=== PATIENT | female | born 1945 | race Caucasian/White ===

== ENCOUNTER 2018-06-01 10:00 | Outpatient (RCR) | payer MEDICARE, SELFPAY ==
--- NOTE | 2018-04-28 15:01 | HP.PTEVAL ---
Patient's Visit Information DEBBI MARTINS is a 72 year old F referred to Physical Therapy by DAVID FRIEND with a diagnosis of ACUTE LEFT SHOULDER PAIN. Date of Evaluation: 04/28/18 Physical Therapist: Christopher Espino, PT, - Visit Plan Frequency: 4-5x /Week Duration: 4 Weeks Plan: MODALTIES FOR PAIN RELEIVE,ROM.strengthening RTC/SCAP ,POSTURAL EX'S MANUAL THERAPY G-H JHOINT MOBS - Subjective Subjective: This 72 y/o female presents to physical therapy with acute left shoulder pain. Patient has about 3 weeks . Patient pain causes left shoulder pain lifting luggage pain continue over weeks. Seen DR cronin PT ,did x-rays of shoulder. Pain increase with ADL'S dressing,lifting self hygine avtivities above 90 degrees. Patient denies parathesia/tingling. Patient pain affects sleeping. Patient pain affects ADL'S and QOL. Patient is right had dominent. Patient has no other PT. No h/o trauma. SOCIAL: single,womans intermediate. VOCATION: unemployed - Pain Left Shoulder Pain Intensity (Out of 10): 7 Pain Intensity Range: 10 Comment: activity - Objective POSTURE: rounded shoulders head foward. NEURO: denies parathesia/tingling ,reflexes intact. PALAPTION: unremarkable. AROM: shoulder flexion 110 degrees,abduction 110 degrees,ER 80 degrees,IR 70 degrees all motion referred pain to lateral deltoid. PROM: shoulder flexion /abduction 140 degrees,. FUNCTION: IR L1,top of head. MMT:infraspinatous /supraspinatous 4-/5 pain,lateral deltoid 4-/5,anterior deltoid 3+/5 pain. CAPSULAR : MILD/MOD limited all planes - Special Tests L Shoulder External Rotation Lag Test - RC Tear: Negative L Shoulder Supine Impingement Test - RC Tear: Negative L Shoulder Lift Off Test - Subscapular Tear: Negative L Shoulder Drop Sign - IS Test: Negative L Shoulder Empty Can - SS: Positive L Shoulder Neer - Impingement: Positive L Shoulder Orantes Jaime - Impingement: Positive L Shoulder Shrug Sign - OA/Adhesive Capsulitis: Positive - Goals Goal 1:: Independanant with HEP Goal Time Frame: 4-6 Weeks Goal 2:: Decrease pain by 50% or greater left shoulder to improve function with ADL'S Goal Time Frame: 4-6 Weeks Goal 3:: Patient to improve ROM symtrically left compared to right for function Goal Time Frame: 4-6 Weeks Goal 4:: Patient to improve RTC strength 4/5 with no pain to improve ADL'S Goal Time Frame: 4-6 Weeks Goal 5:: Patient to improve dash score by 10 points to improve QOL Goal Time Frame: 4-6 Weeks - Rehabilitation Potential Physical Therapy Diagnosis: This patient has psotive sight with RTC imingement with RTC along with mild capsular restriction which impairs ROM,strength ,ADLS' activities above 90 degrees thus benifit from skilled PT Rehabilitation Potential: Good - Anticipated Interventions Patient/Client Instruction: Educate patient on: Condition, Plan of Care For the Purpose of:: To decrease pain, To increase ROM, To improve muscle performance and motor function, To improve ability to perform ADL's, To increase tolerance to activity/condition/position, To improve ability of physical actions for home/community/work/leisure, To improve health of tissue, To decrease soft tissue restriction, To increase flexibility/ROM, To improve ability to perform tasks related to life management Therapeutic Exercise to Include: Strength training, Postural training, Flexibilty training, Passive ROM, Active ROM, Scapular Strength/Stabilization For the Purpose of:: To decrease pain, To increase ROM, To improve muscle performance and motor function, To improve ability to perform ADL's, To increase tolerance to activity/condition/position, To improve performance and independence with ADL's, To improve ability of physical actions for home/community/work/leisure, To improve health of tissue, To decrease soft tissue restriction, To increase flexibility/ROM, To improve ability to perform tasks related to life management Manual Therapy Techniques to Include: Mobilization Comment: G-H For the Purpose of:: To decrease pain, To increase ROM, To improve health of tissue, To decrease soft tissue restriction TENS: Yes IF ES: Yes Cryotherapy (ice pack, ice massage): Yes Thermo therapy (hot pack): Yes Ultrasound (thermal/non thermal): Yes For the Purpose of:: To decrease pain, To increase ROM, To improve health of tissue, To decrease soft tissue restriction Thank you for the opportunity to evaluate your patient. For Medicare and Medicare HMO plans, please review the plan of care and approve it. It will need to be FAXED BACK to us at [phone] for Medicare purposes. Please let me know if there are questions or concerns regarding this plan of care. Physician Signature: Date:
--- NOTE | 2018-06-01 10:40 | HP.PTDCSUM ---
HP - PT D/C Summary It has been my pleasure to treat DEBBI MARTINS under orders from DAVID FRIEND, for the diagnosis of ACUTE LEFT SHOULDER PAIN for a total of 9 visit(s). Discharge Date: Please see the following information for a summary of their discharge status. - Subjective Subjective: Doing well..able to do all ADL'S less pain - Pain Left Shoulder Pain Intensity (Out of 10): 1 - Overall Improvement % Improvement: 80 - Objective Objective/Function: POSTURE: rounded shoulders head foward. PALPATION: none. NEURO: inact. AROM: shoulder flexion 140 degrees,abd 140 degrees ER 80. MMT: RTC 4-/5,DELTOID 4-5/. + IMPINGEMENT - Goals Goal 1:: Independanant with HEP Goal Progress: Goal Met Goal 2:: Decrease pain by 50% or greater left shoulder to improve function with ADL'S Goal Progress: Goal Met Goal 3:: Patient to improve ROM symtrically left compared to right for function Goal Progress: Goal Met Goal 4:: Patient to improve RTC strength 4/5 with no pain to improve ADL'S Goal Progress: Goal Met Goal 5:: Patient to improve dash score by 10 points to improve QOL Goal Progress: Goal Met - Plan Plan: D/C TO HEP - D/C Information If there are questions or concerns regarding this patient's physical therapy, please feel free to call me at [phone]. Thank you for the referral of this patient. Sincerely, Christopher Espino, PT,
== END 2018-06-01 19:00 | disposition home or self-care (01) ==
LOC: PT 10:00
DX: M25.512 Pain in left shoulder (principal)
CPT/HCPCS: 97014; 97110; 97162; G0283

== ENCOUNTER 2019-06-23 13:07 | Inpatient (IN) | payer MEDICARE, SELFPAY ==
[2019-06-23] VITALS (11 sets, daily range): BP systolic 56–116; BP diastolic 36–84; PULSE 74–87; RESP 16–26; TEMP 36.7–37; O2SAT 86–98; BMI 24.3; BMI 24.4
--- NOTE | 2019-06-23 13:45 | CT_ITS ---
STUDY: CT ABDOMEN AND PELVIS WITHOUT CONTRAST REASON FOR EXAM: Female, 73 years old. PT STATED ABDOMEN PAIN AND SHORT OF BREATH RADIATION DOSAGE (If Supplied By Facility): CTDIvol = ( 10.29 ) mGy, DLP = ( 570.62 ) mGycm TECHNIQUE: Transaxial images were obtained from the dome of the diaphragm to the symphysis pubis without oral contrast, and without intravenous contrast. Sagittal and coronal images were reconstructed. Individualized dose optimization techniques were used for this CT. COMPARISON: None. FINDINGS: Large right pleural effusion with compressive atelectasis of the right lung. Shift of the heart and mediastinal structures towards the left side of the midline. Coronary artery calcification. There is a diffuse contour abnormality of the liver consistent with cirrhotic changes. Normal gallbladder and extrahepatic biliary system. There is moderate splenomegaly. A suspected varices in the splenic hilum. Normal pancreas. Diffuse ascites. Normal bilateral adrenal glands. Normal right kidney. Normal left kidney. Normal visualized stomach. Normal small intestine. Normal colon. The appendix is visualized and appears normal. There is diffuse atherosclerotic calcification of the abdominal aorta, without a demonstrated aneurysm. Normal inferior vena cava. Normal retroperitoneum. Normal urinary bladder. There is a small umbilical hernia containing small amount of ascitic fluid. There are diffuse degenerative changes of the visualized lumbar spine. CT/Abdomen/Pelvis without Cont IMPRESSION: Large right pleural effusion with compressive atelectasis in the right lung with shift of the heart and mediastinal structures towards the left side of the midline. Findings suggestive of cirrhosis of the liver with nodular contour and decreased size. Splenomegaly. 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 Ascites. Electronically Signed: Dorian Rand, at 15:06 EST , Service support ,
--- NOTE | 2019-06-23 13:47 | ED.VIS.GI ---
History of Present Illness Chief Complaint: Abd Pain Informant: Patient - Abdominal Pain/Flank Pain Onset: Yesterday Context: Gradual Onset Timing: Continuous Location: Diffuse Current Severity: Moderate Maximum Severity: Moderate - Nausea/Vomiting/Emesis GI Symptom: Nausea - Gone now Onset: Today - Diarrhea/Melena/Hematochezia GI Symptom: Negative for: Diarrhea, Melena, Hematochezia Associated Symptoms: Negative for: Dysuria, Frequency, Hematuria Narrative: Patient is very poor historian. She said something about having some hemorrhoids that are not there now, and 3 bowel movements in a row. She started having abdominal discomfort she thinks yesterday as well as distention which is new for her. She was nauseated at one point but that went away and she has not vomited. She denies any blood in her stool or melena. No fevers. Normal urination. She denies having any surgeries in her belly except for a remote . She also states that she periodically gets thoracenteses for pericardial effusion which she cannot give me any more information about. - Past Medical History (1) Hyperlipidemia Status: Chronic Past Medical History - Allergies and Home Meds Allergies/Adverse Reactions: Allergies Penicillins Allergy (Verified 06/23/19 13:17) Unknown Primary Care Physician: DAVID FRIEND [Other] Surgical History: - - Lives: Alone Smoking Status: Never smoker Alcohol: None Review of Systems General: Denies: Chills, Fever, Sweats Eyes: Denies: Visual changes - bilaterally, Diplopia ENT: Denies: Rhinorrhea, Sore throat Cardiovascular: Denies: Chest pain, Palpitations Respiratory: Denies: Dyspnea, Cough, Dyspnea on exertion Gastrointestinal: Reports: Abdominal pain, Nausea. Denies: Vomiting, Diarrhea, Melena, Hematochezia Genitourinary: Denies: Dysuria, Hematuria, Frequency Musculoskeletal: Denies: Back pain, Swelling, Extremity Pain Skin: Denies: Rash, Wounds Neurological: Denies: Headache, Weakness, Numbness Physical Exam Vital Signs/Narrative: Vital Signs Temp Pulse Resp BP Pulse Ox 06/23/19 13:18 98.6 F 77 24 H 115/55 L 98 06/23/19 13:08 98.6 F 87 26 H 56/36 L 86 Inital Vital Signs reviewed: Yes General: Well nourished, Well developed, No Acute Distress - Smiling, conversive Head: Normocephalic, Atraumatic Eyes: Perrl, EOMI ENT: Moist mucous membranes, No rhinorrhea Neck: Supple, Nontender Cardiovascular: Regular rate, Regular rhythm, No murmurs Respiratory: No distress - but appears tachypneic, CTA bilaterally, Chest nontender, Diminished - throughout Abdomen: Soft, Tender - Diffusely except for reducible umbilical hernia, Guarding - With deep palpation right upper quadrant, Hypoactive bowel sounds, Hernia reducible - Umbilical, Galindo's sign. Negative for: Rebound tenderness Back: Nontender, Normal Inspection. Negative for: CVA tenderness Extremities: Nontender, No edema Skin: Normal color, No rash, No Trauma Neurological: Alert, Oriented x3, Cranial nerves II-XII grossly intact, Normal Strength, Normal Sensation Psychological: Normal affect, Normal Mood Diagnostic/Tx/Re-eval Impressions Abdomen/Pelvis CT 06/23/19 13:45 IMPRESSION: Large right pleural effusion with compressive atelectasis in the right lung with shift of the heart and mediastinal structures towards the left side of the midline. Findings suggestive of cirrhosis of the liver with nodular contour and decreased size. Splenomegaly. 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 Ascites. Electronically Signed: Dorian Rand, at 15:06 EST , Service support , Chest CT 06/23/19 14:47 IMPRESSION: Large right pleural effusion with compressive atelectasis of the right lung with shift of the heart and mediastinal structures towards the left side of the midline. Ascites with evidence of cirrhosis of the liver and splenomegaly with varices in the splenic hilum. Electronically Signed: Dorian Rand, at 15:09 EST , Service support , 06/23/19 13:45 Abdomen/Pelvis without Cont [CT] Stat 06/23/19 14:47 CT Chest [Chest without Contrast] [CT] Stat Laboratory Results 06/23/19 06/23/19 06/23/19 13:40 13:40 15:16 WBC 16.4 H RBC 3.90 L Hgb 12.6 Hct 39.0 MCV 100.0 H MCH 32.3 H MCHC 32.3 RDW Std Deviation 52.2 H RDW Coeff of Viviane 14.1 Plt Count 151 MPV 9.9 Immature Gran % (Auto) 0.600 Neut % (Auto) 83.4 H Lymph % (Auto) 5.9 L Monona % (Auto) 9.2 Eos % (Auto) 0.7 Baso % (Auto) 0.2 Absolute Neuts (auto) 13.6 H Absolute Lymphs (auto) 0.96 Nucleated RBC % 0 Differential Comment COMMENT Diff Path Review May foll Sodium 139 Potassium 3.9 Chloride 102 Carbon Dioxide 33.0 H Anion Gap 4 L BUN 18 Creatinine 1.03 H Estim Creat Clear Calc 41.38 Est GFR (MDRD) Af Amer 67 Est GFR (MDRD) Non-Af 56 L BUN/Creatinine Ratio 17.5 Glucose 121 H Calcium 8.4 L Total Bilirubin 3.10 H AST 51 H ALT 32 Alkaline Phosphatase 185 H Troponin I < 0.015 Total Protein 7.9 Albumin 2.5 L Globulin 5.4 H Albumin/Globulin Ratio 0.5 L Lipase 54 L Urine Color Domonique Urine Clarity Clear Urine pH 5.0 Ur Specific [place] 1.025 Urine Protein 30 H Urine Glucose (UA) Normal Urine Ketones 5 H Urine Occult Blood 10 H Urine Nitrite Positive H Urine Bilirubin 3 H Urine Urobilinogen 8 H Ur Leukocyte Esterase 25 H - Medical Decision Making Work-up shows a large right pleural effusion, ascites that is likely causing her abdominal distention, and findings consistent with cirrhosis. When I discussed these findings with the patient, she states she has never heard of anyone telling her about any liver problems and this is the first time she has ever had abdominal distention like this. She admits that she has had thoracenteses before at [facility], she does not know for how long but had one last month and has been having them for less than a year. When asked if she wants to be transferred to [place] she refuses. She states [place] the [place] and 2 [place]. She lives alone. My suspicion is that she has hepatic encephalopathy so an ammonia is added, her total bilirubin is elevated, her urine is orange and likely causing a false positive nitrite because of bilirubin, that will be cultured. Since we saw the large pleural effusion on the CT of the abdomen and pelvis and we were unable to see her lungs there, I had CT continue up through her chest to further evaluate that. There were no other abnormal findings except for compressive atelectasis of the entire right lung. Patient states that someone of [facility] called her today about a recent chest x-ray she had and said you are not full enough. She states that she feels like she is and needs a tap. She states that she has no PCP. She states she has never drink alcohol and does not currently. Given all of this, the plan is for admission and further work-up and treatment. Discussed with hospitalist. ED Disposition - Plan for ED Patient: Disposition: Acute Care Hospital [facility] Diagnosis: Cirrhosis of liver, Pleural effusion, right, Ascites of liver, Encephalopathy acute Referrals: DAVID FRIEND [Other]
[2019-06-23 13:56] LABS: Absolute Lymphocyte Count 0.96 X10^3/uL (0.83-4.51); Absolute Neutrophil Count 13.6 X10^3/uL (2.0-7.7); Basophil# 0.03 X10^3/uL; Basophil% 0.2 % (0-1); Eosinophil# 0.12 X10^3/uL; Eosinophils% 0.7 % (0-5); Hemoglobin 12.6 g/dL (12.0-15.0); Lymphocyte # 0.96 X10^3/ul (4.0); Lymphocyte % 5.9 % (19-41); Mean Corp Hgb Conc 32.3 g/dL (32-36); Mean Corpuscular Hgb 32.3 pg (27.0-32.0); Mean Platelet Vol. 9.9 fl (6.2-12.0); Monocyte# 1.51 X10^3/uL; Monocyte% 9.2 % (0-10); NRBC Flagged by Analyzer 0 % (0-5); Neutrophil # 13.63 X10^3/uL (2.7-7.7); Neutrophil % 83.4 % (47-70); POSITIVE DIFFERENTIAL YES; POSITIVE MORPHOLOGY YES; Platelet Count 151 K/mm3 (150-450); RBC Distribution Width CV 14.1 % (11.6-14.6); RBC Distribution Width SD 52.2 fl (35.1-43.9); White Blood Count 16.4 K/mm3 (4.4-11.0)
[2019-06-23 13:57] LABS: Differential Indicated SCAN CRITERIA MET
[2019-06-23] MEDS: 0.9% Normal Saline 1,000 ML 1000 ML IV (14:00)
[2019-06-23] MEDS: Morphine 2 MG/ML Syringe IV (14:06)
[2019-06-23] MEDS: Ondansetron 4 MG/2 ML Vial IV (14:06)
[2019-06-23 14:09] LABS: ALB/GLOB Ratio 0.5 RATIO (0.9-2.4); AST(SGOT) 51 U/L (15-37); Alanine Aminotransfer ALT/SGPT 32 U/L (13-56); Albumin, Serum 2.5 g/dL (3.2-5.0); Alkaline Phosphatase 185 U/L (45-117); Anion Gap 4 (5-15); BUN 18 mg/dL (7-18); BUN/Creat Ratio 17.5 RATIO (10-20); Calcium,Total 8.4 mg/dL (8.5-10.1); Chloride 102 mmol/L (98-107); Creatinine, Serum 1.03 mg/dL (0.55-1.02); EST Glomerular Filtration Rate 56 mL/min (>60); Est Glom Filt Rate - Afr Amer 67 mL/min (>60); Estimated Creatinine Clearance 41.38 ml/min; Globulin 5.4 g/dL (2.2-4.2); Glucose 121 mg/dL (74-106); Lipase 54 U/L (73-393); Potassium 3.9 mmol/L (3.5-5.1); Protein, Total 7.9 g/dL (6.4-8.2); Sodium Level 139 mmol/L (136-145)
--- NOTE | 2019-06-23 14:47 | CT_ITS ---
STUDY: CT CHEST WITHOUT CONTRAST REASON FOR EXAM: Female, 73 years old. PT STATED ABDOM PAIN AND SHORT OF BREATH RADIATION DOSAGE (If Supplied By Facility): CTDIvol = ( 11.18 ) mGy, DLP = ( 380.02 ) mGycm TECHNIQUE: Transaxial imaging was performed without the administration of intravenous contrast material. Multiplanar coronal and sagittal images were reformatted. Individualized dose optimization techniques were used for this CT. COMPARISON: None. FINDINGS: Small bilateral benign appearing axillary lymph nodes. Large right pleural effusion with compressive atelectasis of the right lung. There is shift of the heart and mediastinal structures towards the left side of the midline. There are calcifications of the coronary arteries. Normal mediastinum. Normal hilar regions. Normal unenhanced pulmonary arteries. There is atherosclerotic calcification of the aortic arch with tortuosity and elongation of the aortic arch and descending thoracic aorta. There are multi-level degenerative changes of the thoracic spine. Ascites. Findings in keeping with cirrhosis of the liver and splenomegaly with varices in the splenic hilum. CT/Chest without Contrast IMPRESSION: Large right pleural effusion with compressive atelectasis of the right lung with shift of the heart and mediastinal structures towards the left side of the midline. Ascites with evidence of cirrhosis of the liver and splenomegaly with varices in the splenic hilum. Electronically Signed: Dorian Rand, at 15:09 EST , Service support ,
[2019-06-23 15:26] LABS: Mucous, Urine 0 SEEN /hpf (<or=2+); Red Blood Cells-Urine 0 SEEN /hpf (0-5)
[2019-06-23 15:42] LABS: Color, Urine Amber (Yellow); Glucose, Dipstick Normal (Normal); Ketone-Dipstick 5 mg/dl (Negative); Leukocyte Esterase-Dipstick 25 /ul (Negative); Nitrite-Dipstick Positive (Negative); Occult Blood-Urine 10 /ul (Negative); Protein-Dipstick 30 mg/dl (Negative); Specific Gravity, Urine 1.025 (1.002-1.030); Urine Clarity Clear (Clear); Urine Urobilinogen 8 mg/dl (Normal)
[2019-06-23 15:44] LABS: Urine Bilirubin Dipstick 3 mg/dL (Negative)
[2019-06-23 16:02] LABS: Bacteria 2+ /hpf (None Seen); Squamous Epithelial Cells - UA 0-5 SEEN /hpf (5-10); White Blood Cells 0-5 SEEN /hpf (0-5)
[2019-06-23 16:20] LABS: Bilirubin, Direct 1.46 mg/dL (0.00-0.30)
[2019-06-23 16:55] LABS: International Normalized Ratio 1.4; Prothrombin Time (Protime)PT. 17.4 SECONDS (11.7-14.9)
--- NOTE | 2019-06-23 17:15 | HP.PCM_ITS ---
Problem List (1) Asthma Status: Chronic (2) RA (rheumatoid arthritis) Status: Acute Comment: pt has been told she has RA but, she is not on any medications (3) Hyperglycemia Status: Acute (4) Splenomegaly Status: Chronic (5) Hypoprothrombinemia Status: Chronic (6) Cataract Status: Chronic Qualifiers: Laterality: right (7) Cirrhosis of liver Status: Chronic Qualifiers: Hepatic cirrhosis type: unspecified hepatic cirrhosis Ascites presence: with ascites Qualified Code(s): K74.60 - Unspecified cirrhosis of liver; R18.8 - Other ascites (8) Pleural effusion, right Status: Acute (9) Hyperlipidemia Status: Chronic History of Present Illness Date of Admission: 06/23/19 Chief Complaint: abdominal pain The patient is a 73 year old F who is new to [facility] with a PMH of HLD, RA, a cataract on the R who was brought to the ED at [facility] on 06/23/2019 with a complaint of abdominal pain the preceding night. She had 3 BM's and now she denies abd pain. She denies nausea, vomiting, cough, F/C. Her abd is distended. Vital signs at presentation to the emergency department were temperature 98.6, pulse rate 87, blood pressure 56/36, respiratory rate 26 and she was 86% on room air. The BP after 1 liter of NS was 115/55 with a HR of 80. She denied lightheadedness, CP, SOB, hx of CVD. Lab was remarkable for an elevated white blood cell count of 16.4 with a hemoglobin of 12.6, MCV of 100, platelets of 151,083% neutrophils. PT was mildly prolonged at 17.4. The CMP showed a mildly increased serum bicarb at 33, BUN of 18 with a creatinine of 1.03, glucose of 121, total bilirubin of 3.1 with an AST of 51, ALT of 32 and an alkaline phosphatase of 185. Ammonia is within normal limits at 21. Troponin was less than 0.015. Albumin is low at 2.5. Lipase was within normal limits. A clean catch urine showed positive nitrites, positive occult blood, positive ketones and a specific gravity of 1.025. There were 0-5 WBCs and 0 RBCs. There was 2+ bacteria. A CT scan of the abdomen and pelvis was obtained and showed a large right pleural effusion with compressive atelectasis in the right lung with shift of the heart and mediastinal structures towards the left side of midline. There were findings suggestive of cirrhosis of the liver with a nodular contour and decreased size. There was significant splenomegaly and varices in the region of the splenic hilum. His ascites present. A noncontrasted CT chest was obtained and showed a very large right pleural effusion extending into the apex of the right lung. She denies any hx of chronic liver disease but, she is on Lasix and Propanolol. She also states she has been on Spirolactone but, she stopped this because she read it can cause problems with your eyes. She does not use ETOH and she denies any hx of viral hepatitis or chronic liver disease. Tells me that she has been getting thoracenteses at [facility] and her last was sometime in May. She is being admitted to the hospital with hypoxia, hypotension, decompensated cirrhosis and ascites. Past Medical History Past Medical History (Chronic Problems): Chronic Problems Hyperlipidemia (Chronic) Cirrhosis of liver (Chronic) Asthma (Chronic) Splenomegaly (Chronic) Hypoprothrombinemia (Chronic) Cataract (Chronic) Allergies Penicillins Allergy (Verified 06/23/19 13:17) Unknown Home Medications: Ambulatory Orders Medication Instructions Recorded Albuterol Sulfate [Ventolin Hfa] 2 puff INHALATION Q6H PRN 06/23/19 Furosemide 40 mg PO DAILY 06/23/19 Propranolol HCl 20 mg PO BID 06/23/19 Surgical History: - - Psychiatric History: No pertinent psych hx [employer] History: No pertinent [employer]TE[employer] history, - - She is and she has a son who lives in [facility] Lives: Alone Smoking Status: Never smoker Tobacco Use: Non-smoker Alcohol: None Drugs: None - *Family History Maternal History Items: Cancer - colon CA is grandfather, - - mother of pneumonia Paternal History Items: - - never knew her biological father Review of Systems Constitutional: Denies: Anorexia, Chills, Fever, Night Sweats, Weight Change HEENT: Denies: Head Aches, Sinus Congestion, Sinus Drainage Cardiovascular: Reports: Edema. Denies: Chest Pain, Claudication, Light Headedness, Orthopnea, Palpitations, Paroxysmal Noc. Dyspnea, Syncope Respiratory: Denies: Cough, Shortness of Breath, Shortness of breath at rest, Sputum production, Wheezing Gastrointestinal: Reports: Abdominal Pain, Constipation - the abdominal pain resolved after she had 3 BM's. Denies: Nausea, Vomiting Genitourinary: Denies: Dysuria, Frequency, Hematuria, Hesitancy Gynecological: Denies: Breast symptoms, Vaginal discharge Musculoskeletal: Denies: Joint Pain, Joint Tenderness Skin: Denies: Rash, Wounds Neurological: Denies: Balance problems, Confusion, Focal weakness, Headaches, Numbness, Tingling, Tremor, Seizures Psychiatric: Denies: Anxiety, Depression, Homicidal Ideations, Suicidal Ideations Endocrine: Reports: Change in Body Habitus - her abd is getting bigger Hematologic/ Lymphatic: Reports: Easy Bruising. 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 Patient Problems: Active and Suspected Problems Pleural effusion, right (Acute) RA (rheumatoid arthritis) (Acute) pt has been told she has RA but, she is not on any medications Hyperglycemia (Acute) - Physical Exam Vitals/I&O's: Vital Signs Temp Pulse Resp BP Pulse Ox 98.5 F 79 16 114/56 L 96 06/23/19 16:00 06/23/19 16:00 06/23/19 16:00 06/23/19 16:00 06/23/19 16:00 Oxygen Flow Rate (L/min) 2 Oxygen Delivery Method Nasal Cannula Weight: 141 lb 5.061 oz Body Mass Index (BMI) 24.3 Intake and Output for Last 24 Hours 06/21/19 06/22/19 06/23/19 23:59 23:59 23:59 Intake Total 1000 / 1000 Balance 1000 / 1000 General: Alert, Oriented x3, Cooperative, No apparent distress, Well developed, Well nourished HEENT: Atraumatic, PERRLA, EOMI, Normocephalic, - - she has scleral icterus Oral: No Gingival or Mucosal Lesions/ Ulcerations, Dry Mucosa - very dry, - - missing teeth Neck: Supple, No Nodes, No Nuchal Rigidity, Trachea Midline, JVD, Bilateral Lungs: Diminished - throughout the R side, no rales and no wheezing. She did not have tachypnea or conversational dyspnea when I examined her Cardiovascular: Regular rate, Regular Rhythm, Normal S1, Normal S2, No murmurs, No rub noted, No Gallop Abdomen: Bowel Sounds Present, Soft, Non Tender, Distended, - - no guarding with palpation. She has a umbilical hernia that is reducible Extremities: No clubbing, No cyanosis, No Calf Tenderness, Edema - she has pitting edema of the LE's around the ankle, Peripheral Pulses Normal Skin: - - the skin is very dry and flakey over the LE's and she has superficial varicosities Musculoskeletal: No Muscle Wasting Neurological: Cranial nerves II-XII grossly intact, Neuro grossly intact Psych/Mental Status: Normal Affect - She is very pleasant and verbose, Appropriate Laboratory Results 06/23/19 13:40: WBC 16.4 H, RBC 3.90 L, Hgb 12.6, Hct 39.0, MCV 100.0 H, MCH 32.3 H, MCHC 32.3, RDW Std Deviation 52.2 H, RDW Coeff of Viviane 14.1, Plt Count 151, MPV 9.9, Immature Gran % (Auto) 0.600, Neut % (Auto) 83.4 H, Lymph % (Auto) 5.9 L, Grand % (Auto) 9.2, Eos % (Auto) 0.7, Baso % (Auto) 0.2, Absolute Neuts (auto) 13.6 H, Absolute Lymphs (auto) 0.96, Nucleated RBC % 0, Differential Comment COMMENT, Diff Path Review November06/23/19 13:40: Sodium 139, Potassium 3.9, Chloride 102, Carbon Dioxide 33.0 H, Anion Gap 4 L, BUN 18, Creatinine 1.03 H, Estim Creat Clear Calc 41.38, Est GFR (MDRD) Af Amer 67, Est GFR (MDRD) Non-Af 56 L, BUN/Creatinine Ratio 17.5, Glucose 121 H, Calcium 8.4 L, Total Bilirubin 3.10 H, AST 51 H, ALT 32, Alkaline Phosphatase 185 H, Troponin I < 0.015, Total Protein 7.9, Albumin 2.5 L, Globulin 5.4 H, Albumin/Globulin Ratio 0.5 L, Lipase 54 L 06/23/19 13:40: PT 17.4 H, INR 1.4 06/23/19 15:16: Urine Color Domonique, Urine Clarity Clear, Urine pH 5.0, Ur S pecific [place] 1.025, Urine Protein 30 H, Urine Glucose (UA) Normal, Urine Ketones 5 H, Urine Occult Blood 10 H, Urine Nitrite Positive H, Urine Bilirubin 3 H, Urine Urobilinogen 8 H, Ur Leukocyte Esterase 25 H, Urine RBC 0 SEEN, Urine WBC 0-5 SEEN, Ur Squamous Epith Cells 0-5 SEEN, Urine Bacteria 2+, Urine Mucus 0 SEEN 06/23/19 15:42: Ammonia 21.0 06/23/19 15:42: Direct Bilirubin 1.46 H Current Medications Sodium Chloride () 10 - 40 ml IV UD PRN PRN Reason: SALINE FLUSH Assessment/Plan All Active Problems Pleural effusion, right (Acute) RA (rheumatoid arthritis) (Acute) Hyperglycemia (Acute) Impressions 1. Abdominal pain - relieved with BM's X 3. A stool softener has been prescribed and PRN laxative. 2. Hypotension secondary to intravascular volume depletion due to chronic Lasix therapy. Resolved with 1 L of normal saline. Will hold Lasix and place her on 1000 cc daily of fluid restriction instead. 2 GM sodium diet. 3. very large R pleural effusion - hx of Thoracenteses being done at [place]. etiology? Pt can not tell me. Denies CAD, CHF. Will obtain te records from [place]. ECHO in the AM. 4. cirrhotic appearing liver on CT scan of the ABD and the pelvis with splenomegaly. States that she has never been told she has chronic liver disease but, she is on Propanolol and Lasix and was on Spironolactone until she stopped it. Denies any ETOH use and denies any hx of viral hepatitis 5. ? hx of RA - pt tells me she has been told she has RA but, she is on no chronic medications. 6. hypoprothrombinemia -more likely than not due to chronic liver disease 7. Hyperlipidemia - not on a statin. 8. asthma - life long non-smoker. Not on medications/inhalers Consult Dr. Lindo for possible pleurx catheter. Send the pleural fluid for testing. Consider a diagnostic and therapeutic paracentesis for Wednesday. Hold the Lasix for now......she is intravascularly depleted and was hypotensive at admission Possible CT dz as etiology of cirrhosis? Check an ESR, CRP, RA and PIPPA. It is odd that the pleural effusion is so large and she has ascites and a cirrhotic appearing liver with splenomegaly and yet the PLT's are normal and the PT is only mildly prolonged? Code Visit Inpatient E&M: 37793 Init Hosp L3
[2019-06-23 17:23] LABS: Mucous, Urine 0 SEEN /hpf (<or=2+); Red Blood Cells-Urine 0 SEEN /hpf (0-5); Squamous Epithelial Cells - UA 0 SEEN /hpf (5-10); White Blood Cells 0 SEEN /hpf (0-5)
[2019-06-23 17:28] LABS: Color, Urine Amber (Yellow); Glucose, Dipstick Normal (Normal); Ketone-Dipstick 5 mg/dl (Negative); Leukocyte Esterase-Dipstick 25 /ul (Negative); Nitrite-Dipstick Positive (Negative); Occult Blood-Urine Negative /ul (Negative); Protein-Dipstick 30 mg/dl (Negative); Specific Gravity, Urine 1.025 (1.002-1.030); Urine Clarity Clear (Clear); Urine Urobilinogen 4 mg/dl (Normal)
[2019-06-23 17:33] LABS: Urine Bilirubin Dipstick 3 mg/dL (Negative)
--- NOTE | 2019-06-23 17:44 | ECHOD_ITS ---
Reason For Study: Large Right Pleural Effusion Procedure This was a 2D Doppler, Color Flow transthoracic echocardiogram. Technically difficult study. Patient scanned sitting upright due to SOB. Patient refused to lay on left side. Exam performed portable in patient room. Left Ventricle Normal LV size. Left ventricular systolic function is normal. The estimated ejection fraction is 65 %. Stage 1 diastolic dysfunction. No regional wall motion abnormalities noted. Right Ventricle Normal RV size. Normal systolic function. Atria Normal left atrium. Normal right atrium. Mitral Valve There is moderate to severe mitral annular calcification. Tricuspid Valve Normal tricuspid valve. Mild to moderate (1-2+) tricuspid valve insufficiency. Pulmonary artery systolic pressure is 52 mmHg. Aortic Valve Normal aortic valve. Trisinus/trileaflet aortic valve. Pulmonic Valve Normal pulmonic valve. Great Vessels Normal aortic root. The pulmonary artery is normal size. Normal inferior vena cava. Pericardium/Pleural No pericardial effusion. MMode/2D Measurements & Calculations LVIDd: 3.6 cm IVSd: 1.1 cm LA dimension: 4.1 cm LVIDs: 2.0 cm LVPWd: 0.92 cm RVDd: 4.0 cm FS: 43.2 % LAV(MOD-bp): 54.9 ml LA A4 area: 18.9 cm2 RA A4 area: 16.9 cm2 LAV(MOD-bp) Indexed: 32.4 ml/m2 LAV(MOD-sp2): 47.8 ml LAV(MOD-sp4): 60.9 ml Time Measurements MV dec time: 0.20 sec Doppler Measurements & Calculations MV E max quentin: 90.6 cm/sec Lat Peak E' Quentin: 9.0 cm/sec Med Peak E' Quentin: 8.0 cm/sec MV A max quentin: 103.0 cm/sec E/E' lat: 10.1 E/E' med: 11.3 MV E/A: 0.88 MV V2 max: 131.8 cm/sec MV P1/2t max quentin: 123.6 cm/sec Ao V2 max: 143.6 cm/sec MV max P.0 mmHg MV P1/2t: 60.0 msec Ao max P.2 mmHg MV V2 mean: 74.3 cm/sec MV dec slope: 603.3 cm/sec2 MV mean P.6 mmHg MVA(P1/2t): 3.7 cm2 MV V2 VTI: 31.7 cm LV V1 max: 114.9 cm/sec PA V2 max: 87.1 cm/sec TR max quentin: 347.8 cm/sec LV V1 max P.3 mmHg TR max P.4 mmHg Interpretation Summary Normal LV size. Left ventricular systolic function is normal. The estimated ejection fraction is 65 %. Stage 1 diastolic dysfunction. Mild to moderate (1-2+) tricuspid valve insufficiency. Pulmonary artery systolic pressure is 52 mmHg. Ordering Physician: Rosalva Sexton Referring Physician: Rosalva Sexton Performed By: Dustin Mobley RCS
[2019-06-23 17:46] LABS: Bacteria 1+ /hpf (None Seen); Hyaline Cast 0-5 SEEN /lpf (0-5)
[2019-06-23 18:04] LABS: Magnesium 1.6 mg/dL (1.6-2.6)
[2019-06-23 18:23] LABS: LDH 283 U/L (84-246); Phosphorus 3.4 mg/dL (2.5-4.9); Thyroid Stim Hormone (TSH) 1.49 uIU/mL (0.358-3.74)
[2019-06-23 18:26] LABS: Erythrocyte Sedimentation Rate 62 mm/hr (0-30)
[2019-06-23 18:44] LABS: Hemoglobin A1c 5.1 % (4.2-6.3)
--- NOTE | 2019-06-23 18:44 | NURSING ---
Pt took a bite of mashed potatoes and refused the rest of her meal. This nurse wanted to perform st. cath after explaining reason for it. Pt upset, they did that downstairs. This nurse again, explained reason for order for st. cath. I don't have to pee right now and I'm tired, I just want to sleep. pt states she goes to bed at 2000 at home.
[2019-06-23 21:05] LABS: Bacteria 0 SEEN /hpf (None Seen); Mucous, Urine 0 SEEN /hpf (<or=2+)
[2019-06-23 21:41] LABS: Color, Urine Amber (Yellow); Glucose, Dipstick Normal (Normal); Ketone-Dipstick 5 mg/dl (Negative); Leukocyte Esterase-Dipstick 25 /ul (Negative); Nitrite-Dipstick Positive (Negative); Occult Blood-Urine 10 /ul (Negative); Protein-Dipstick 15 mg/dl (Negative); Specific Gravity, Urine 1.025 (1.002-1.030); Urine Clarity Clear (Clear); Urine Urobilinogen 4 mg/dl (Normal)
[2019-06-23 21:49] LABS: Urine Bilirubin Dipstick 3 mg/dL (Negative)
[2019-06-23 21:54] LABS: Hyaline Cast 50-100 SEEN /lpf (0-5)
[2019-06-23 21:55] LABS: Red Blood Cells-Urine 0-5 SEEN /hpf (0-5); Squamous Epithelial Cells - UA 0-5 SEEN /hpf (5-10); White Blood Cells 0-5 SEEN /hpf (0-5)
[2019-06-23] MEDS: Docusate Sodium 100 MG Capsule PO (22:05)
[2019-06-24] VITALS (17 sets, daily range): BP systolic 75–116; BP diastolic 48–69; PULSE 64–99; RESP 16–30; TEMP 36.2–37.2; O2SAT 92–100
--- NOTE | 2019-06-24 | FLU_PTH ---
PATIENT: DEBIB MARTINS LOC: [facility] U#:[id number] AGE/SX: 73/F ROOM: [facility] RE06/23/[address]: Dr. Kaitlynn Meehan MD : [id number] BED: 1 DIS: 06/30/2019 SPEC #: [id number] RECD: 06/26/19 12:01 STATUS: SOULeslie REQ #: [id number] MARIBEL: 06/24/19 00:[address]: Santo Lindo DEPT: CYTOLOGY RECD BY: Antonio Rodriguez ENTERED: 06/26/19 12:02 SP TYPE: Fluid OTHR DR: MD Dr. Rosalva Coreas DO Dr. Richard Guttman, MD Tissues: Pleural fluid, NOS Procedures: Special Stain Group II Surgery Specimen Level IV Cytospin Fluid Comments: @ Ordering doctor for SSII edited from to DR.[email or web address] Johnston by TITO at 06/26/19 1304 @ Ordering doctor for SUIV edited from to DR.[email or web address] Johnston by TITO at 06/26/19 1304 @ Ordering doctor for CYSPIN edited from to DR.[email or web address] Johnston by TITO at 06/26/19 1304 @ Submitting doctor edited from to DR.RGUTTM Johnston by RGOOD at 06/26/19 1304 HEADER OPERATION: Ultrasound-guided tunneled PleurX catheter PRE-OP DIAGNOSIS: Right pleural effusion with mediastinal shift TISSUE SUBMITTED: Pleural fluid for cytology DIAGNOSIS CYTOLOGY Pleural fluid for cytology (cytospin and cell block): Negative for malignant cells. Acute inflammation. See comment. GENA:mamadou 06/27/19 COMMENT Correlation with clinical, radiologic findings and appropriate follow up are necessary. CYTOLOGY STUDY Slides are reviewed. CYTOLOGY GROSS Received is 1000 ml of yellow cloudy fluid labeled with the patient's name and and designated per the requisition as pleural. Submitted for cytology preparation including cell block. / mamadou 06/26/19 TC:2 CPT: 53260, 00267
--- NOTE | 2019-06-24 08:10 | CON.PCM_ITS ---
Reason for Consult Date of Consultation: 06/24/19 Reason for Consultation: right effusion History of Present Illness: The patient is a 73 year old F admitted with abdominal pain and significant shortness of breath. The patient presents with a history of cirrhosis and a large right pleural effusion. In the emergency department she was noted to be hypotensive with a blood pressure 56/36 arrest. Rate listed in the 20s but more likely in the 40s and a room air saturation of 86%. CT scan of the chest abdomen and pelvis demonstrated a very large right pleural effusion with compressive atelectasis and shifting the heart and mediastinal structures to the left. There was noted to be cirrhosis of the liver with a relatively shrunken contracted nodular liver nearly the size of the spleen and ascites along with what appears to be edema of the mesenteric fat and subcutaneous fat consistent with anasarca. The patient is a poor historian area did she denies any alcohol use smoking history or other difficulties. She does relate that she was seen in the [facility] last year and was told she had cirrhosis and likely a tumor. She does not know what type of tumor. I was consulted for placement of Pleurx catheter given her shortness of breath and very large right pleural effusion. The patient apparently has been traveling to [facility] for thoracenteses. She recalls her last pleurodesis was one week ago but reviewing available records demonstrates that was probably more towards the end of May. The clinical impression was likely biliary obstruction due to malignant neoplasm. She was noted to have a liver mass on imaging.her past history is noted as rheumatoid arthritis hyperlipidemia, asthma, psychiatric history, cirrhosis portal hypertension hypothyroidism. The patient on CT imaging from an outside institution was noted to demonstrate internal hepatic biliary dilatation and gallbladder distention. For some hypodense lesion was noted in the gallbladder. The common bile duct was dilated. The patient had a CA-19-9 level obtained which was 314 and elevated liver enzymes and bilirubin. CA-19-9 then returned as 222 alpha-fetoprotein of 2 and CEA of 1.5. 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 The patient was admitted to [facility] from September 25 to October 15, 2017. She was admitted with the diagnosis of jaundice. attempts to place stent via ERCP failed to traverse the segment. PTHC was then performed with an external biliary drain and placed and the patient had thoracentesis pe rformed. Pleural and ERCP brushings were negative for cytology. Repeat ERCP was performed on October 08 with successful cannulation of bile duct and the PTHC was removed. She was felt to not be a candidate for liver transplantation.her bilirubin during that hospitalization remained around the 9 to 11 level. admitting labs returned as a white blood cell count of 16.4. Platelet count is 151. PT is 17.4 with an INR of 1.4.ammonia level was 21. Total bilirubin was 3.1. Albumin is 2.5. 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, - - She is and she has a son who lives in [facility] Lives: Alone Smoking Status: Never smoker Tobacco Use: Non-smoker Alcohol: None Drugs: None - *Family History Maternal History Items: Cancer - colon CA is grandfather, - - mother of pneumonia Paternal History Items: - - never knew her biological father Review of Systems Unable to obtain accurate/complete ROS d/t: patient's seem somewhat confused and aside from shortness of breath and abd Patient Problems: Active and Suspected Problems Pleural effusion, right (Acute) RA (rheumatoid arthritis) (Acute) pt has been told she has RA but, she is not on any medications Hyperglycemia (Acute) - Physical Exam Vitals/I&O's: Vital Signs Temp Pulse Resp BP Pulse Ox 97.5 F L 81 18 114/49 L 94 06/24/19 03:00 06/24/19 03:05 06/24/19 03:00 06/24/19 03:00 06/24/19 03:00 Oxygen Flow Rate (L/min) 2.5 Oxygen Delivery Method Nasal Cannula Weight: 65.1 kg Body Mass Index (BMI) 24.4 Orthostatic Vital Signs Start: 06/24/19 03:04 Freq: q24h Status: Active Protocol: Activity Type Activity Date Activity User E-Sign Co-Sign Detail Recorded Client Recorded Date Recorded By Document 06/24/19 03:00 [facility] [id number] 06/24/19 03:05 [facility] 06/24/19 03:00 Orthostatic Vitals Standing -Blood Pressure (90/60-120/80) 110/50 L -Extremity Use Left Arm -Pulse Rate (60-100) 87 Sitting -Blood Pressure (90/60-120/80) 115/48 L -Extremity Use Left Arm -Pulse Rate (60-100) 86 Lying -Blood Pressure (90/60-120/80) 114/49 L -Extremity Use Left Arm -Pulse Rate (60-100) 82 Intake and Output for Last 24 Hours 06/22/19 06/23/19 06/24/19 23:59 23:59 23:59 Intake Total 1000 / 1240 240 / 240 Output Total 70 / 70 Balance 1000 / 1170 170 / 170 General: Alert, Oriented x3, - - mildly dyspneic HEENT: Atraumatic, PERRLA, EOMI, - - mildly icteric Neck: No JVD Lungs: - - severely decreased right sided breath sounds with dullness to percussion Cardiovascular: Regular rate, Regular Rhythm Abdomen: Bowel Sounds Present, Soft, Distended, Tender - mild diffusely, - Extremities: No clubbing, No cyanosis, - - mild edema Laboratory Results 06/23/19 13:40: WBC 16.4 H, RBC 3.90 L, Hgb 12.6, Hct 39.0, MCV 100.0 H, MCH 32.3 H, MCHC 32.3, RDW Std Deviation 52.2 H, RDW Coeff of Viviane 14.1, Plt Count 151, MPV 9.9, Immature Gran % (Auto) 0.600, Neut % (Auto) 83.4 H, Lymph % (Auto) 5.9 L, [place] % (Auto) 9.2, Eos % (Auto) 0.7, Baso % (Auto) 0.2, Absolute Neuts (auto) 13.6 H, Absolute Lymphs (auto) 0.96, Nucleated RBC % 0, Differential Comment COMMENT, Diff Path Review November06/23/19 13:40: Sodium 139, Potassium 3.9, Chloride 102, Carbon Dioxide 33.0 H, Anion Gap 4 L, BUN 18, Creatinine 1.03 H, Estim Creat Clear Calc 41.38, Est GFR (MDRD) Af Amer 67, Est GFR (MDRD) Non-Af 56 L, BUN/Creatinine Ratio 17.5, Glucose 121 H, Calcium 8.4 L, Total Bilirubin 3.10 H, AST 51 H, ALT 32, Alkaline Phosphatase 185 H, Troponin I < 0.015, Total Protein 7.9, Albumin 2.5 L, Globulin 5.4 H, Albumin/Globulin Ratio 0.5 L, Lipase 54 L 06/23/19 13:40: PT 17.4 H, INR 1.4 06/23/19 13:40: Magnesium 1.6 06/23/19 15:16: Urine Color Domonique, Urine Clarity Clear, Urine pH 5.0, Ur Specific [place] 1.025, Urine Protein 30 H, Urine Glucose (UA) Normal, Urine Ketones 5 H, Urine Occult Blood 10 H, Urine Nitrite Positive H, Urine Bilirubin 3 H, Urine Urobilinogen 8 H, Ur Leukocyte Esterase 25 H, Urine RBC 0 SEEN, Urine WBC 0-5 SEEN, Ur Squamous Epith Cells 0-5 SEEN, Urine Bacteria 2+, Urine Mucus 0 SEEN 06/23/19 15:42: Ammonia 21.0 06/23/19 15:42: Direct Bilirubin 1.46 H 06/23/19 17:12: Urine Color Domonique, Urine Clarity Clear, Urine pH 5.0, Ur Specific [place] 1.025, Urine Protein 30 H, Urine Glucose (UA) Normal, Urine Ketones 5 H, Urine Occult Blood Negative, Urine Nitrite Positive H, Urine Bilirubin 3 H, Urine Urobilinogen 4 H, Ur Leukocyte Esterase 25 H, Urine RBC 0 SEEN, Urine WBC 0 SEEN, Ur Squamous Epith Cells 0 SEEN, Urine Bacteria 1+, Hyaline Casts 0-5 SEEN, Urine Mucus 0 SEEN 06/23/19 17:44: ESR 62 H 06/23/19 17:44: Phosphorus 3.4, Lactate Dehydrogenase 283 H, C-React Prot Ext Range 38.20 H, TSH 1.49 06/23/19 17:44: Hemoglobin A1c 5.1 06/23/19 20:55: Urine Color Domonique, Urine Clarity Clear, Urine pH 5.0, Ur Specific [place] 1.025, Urine Protein 15 H, Urine Glucose (UA) Normal, Urine Ketones 5 H, Urine Occult Blood 10 H, Urine Nitrite Positive H, Urine Bilirubin 3 H, Urine Urobilinogen 4 H, Ur Leukocyte Esterase 25 H, Urine RBC 0-5 SEEN, Urine WBC 0-5 SEEN, Ur Squamous Epith Cells 0-5 SEEN, Urine Bacteria 0 SEEN, Hyaline Casts 50-100 SEEN, Urine Mucus 0 SEEN Current Medications Al Hydroxide/Mg Hydroxide (Mylanta Ii) 30 ml PO Q6H PRN PRN PRN Reason: Gastric Burning Albuterol Sulfate (Ventolin Aerosols) 2.5 mg INHALATION Q2H PRN PRN PRN Reason: SOB/Wheezing Bisacodyl (Dulcolax) 5 mg PO DAILY PRN PRN PRN Reason: Constipation Docusate Sodium (Colace) 100 mg PO BID [facility] Last Admin: 06/23/19 22:05 Dose: 100 mg Documented by: Clindamycin Phosphate 900 mg/ (Dextrose) 106 mls @ 150 mls/hr IV PREOP ONE Stop: 06/24/19 08:41 Magnesium Hydroxide (Milk Of Magnesia) 30 ml PO DAILY PRN PRN PRN Reason: Constipation Morphine Sulfate () 1 mg IV Q4H PRN PRN PRN Reason: Pain Score 6-10/10 Nutritional Formula (Lactose Free) (Ensure Enlive) 120 ml PO 4X/DAY [facility] Last Admin: 06/23/19 22:08 Dose: 120 ml Documented by: Ondansetron HCl (Zofran) 4 mg IV Q8H PRN PRN PRN Reason: NAUSEA/VOMITING Oxycodone HCl (Oxyir) 5 mg PO Q8H PRN PRN PRN Reason: Pain Score 4-5/10 Propranolol HCl (Inderal) 10 mg PO BID [facility] Last Admin: 06/23/19 22:09 Dose: Not Given Documented by: Sodium Chloride () 10 - 40 ml IV UD PRN PRN Reason: SALINE FLUSH Assessment/Plan All Active Problems Pleural effusion, right (Acute) RA (rheumatoid arthritis) (Acute) Hyperglycemia (Acute) cirrhosis, massive right pleural effusion with mediastinal shift, ascites, questionable cholangiocarcinoma The patient is somewhat dyspneic on presentation is unable to lay flat. Given the findings of her CT scanner discomfort I would plan for relatively emergent placement of a right Pleurx catheter. We do not have recent records of her pleural fluid studies. These will be sent for cytology and culture body fluid panel and cell count. Surgical plan is ultrasound guided right tunneled thoracic catheter/Pleurx catheter. I discussed with the patient the risks, benefits, complications and possible alternatives and the patient does seem appropriate to consent for this procedure my opinion. The above discharge summary from [facility] hospitalization was generated from the clinic System and given to the hospitalist service to assist and there care of the patient. Pleurx catheter will be placed to 20 cm suction and follow-up chest x-rays will be monitored.
--- NOTE | 2019-06-24 08:24 | NURSING ---
verbal report given to SERGE toure in PACU
[2019-06-24] MEDS: 0.9% Saline Lock 10 ML Syringe IV (08:42)
[2019-06-24] MEDS: Bupivacaine Mpf 0.5% 30 ML VIAL (09:35)
--- NOTE | 2019-06-24 09:57 | CON.PCM_ITS ---
Reason for Consult Date of Consultation: 06/24/19 Reason for Consultation: Pleural effusion History of Present Illness: The patient is a 73-year-old female, with a history as outlined below, who presented to the emergency department on June 23 with complaints of abdominal pain. The patient apparently has underlying cirrhosis of unclear etiology and has been getting routine thoracenteses through [facility], the last having occurred in the last 2-3 weeks. The patient does appear to have been on a diuretic regimen in the past as an outpatient, but does not recall ever having been diagnosed with any liver related issues. History obtained from the patient was very limited, as she appeared confused and would speak in a nonsensical manner most of the time. There is some question as to whether the patient was diagnosed with some form of a liver mass several years ago through the [facility]. History of the patient's prior work-up and hospitalizations are not readily available at the current time. On presentation to the emergency department, the patient was noted to be afebrile, but was hypotensive and tachypneic. She was also initially documented to be saturating 86% on room air. Laboratory evaluation revealed an elevated white blood cell count to 16,000. Coagulation profile revealed an INR of 1.4. Chemistry profile was notable for a bicarbonate of 33 and creatinine of 1.03. Total bili was elevated to 3.1 with an AST of 51. Alkaline phosphatase was i ncreased to 185. UA was notable for nitrites and leukocyte esterase along with 2+ urine bacteria. CT abdomen/pelvis revealed a large right-sided pleural effusion with associated compressive atelectasis and contralateral mediastinal shift. There were also findings consistent with cirrhosis of the liver, splenomegaly and varices within the splenic hilum. It does not appear that antibiotics were ever started empirically. The patient was subsequently admitted to the progressive care unit. It does appear that general surgery was contacted last evening and arrangements were made to have the patient undergo Pleurx catheter placement this morning. 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, - - She is and she has a son who lives in [facility] Lives: Alone Smoking Status: Never smoker Tobacco Use: Non-smoker Alcohol: None Drugs: None - *Family History Maternal History Items: Cancer - colon CA is grandfather, - - mother of pneumonia Paternal History Items: - - never knew her biological father Review of Systems Constitutional: Reports: Fatigue Eyes: Denies: Blurred vision HEENT: Denies: Head Aches, Sinus Congestion, Sinus Drainage Cardiovascular: Denies: Chest Pain, Palpitations Respiratory: Reports: Shortness of Breath Gastrointestinal: Reports: Abdominal Pain Genitourinary: Denies: Dysuria Musculoskeletal: Denies: Joint Pain, Joint Tenderness Skin: Denies: Rash, Wounds Neurological: Denies: Numbness, Tingling, Focal weakness Psychiatric: Denies: Anxiety, Depression, Homicidal Ideations, Suicidal Ideations Hematologic/ Lymphatic: Reports: Anemia Patient Problems: Active and Suspected Problems Pleural effusion, right (Acute) RA (rheumatoid arthritis) (Acute) pt has been told she has RA but, she is not on any medications Hyperglycemia (Acute) Objective: The patient's most recent lab work, culture data and imaging studies have all been personally reviewed. - Physical Exam Vitals/I&O's: Vital Signs Temp Pulse Resp BP Pulse Ox 97.9 F 78 20 H 116/57 L 95 06/24/19 07:54 06/24/19 07:54 06/24/19 07:54 06/24/19 07:54 06/24/19 07:54 Oxygen Flow Rate (L/min) 2 Oxygen Delivery Method Nasal Cannula Weight: 143 lb 8.335 oz Body Mass Index (BMI) 24.4 Orthostatic Vital Signs Start: 06/24/19 03:04 Freq: q24h Status: Active Protocol: Activity Type Activity Date Activity User E-Sign Co-Sign Detail Recorded Client Recorded Date Recorded By Document 06/24/19 03:00 MAB [id number] 06/24/19 03:05 MAB 06/24/19 03:00 Orthostatic Vitals Standing -Blood Pressure (90/60-120/80) 110/50 L -Extremity Use Left Arm -Pulse Rate (60-100) 87 Sitting -Blood Pressure (90/60-120/80) 115/48 L -Extremity Use Left Arm -Pulse Rate (60-100) 86 Lying -Blood Pressure (90/60-120/80) 114/49 L -Extremity Use Left Arm -Pulse Rate (60-100) 82 Intake and Output for Last 24 Hours 06/22/19 06/23/19 06/24/19 23:59 23:59 23:59 Intake Total 1000 / 1240 346 / 346 Output Total 70 / 70 Balance 1000 / 1170 276 / 276 General: Alert, Cooperative, Confused HEENT: Atraumatic, Normocephalic Oral: No Gingival or Mucosal Lesions/ Ulcerations Neck: Supple, No Nodes, Trachea Midline Lungs: Diminished Cardiovascular: Regular rate, Regular Rhythm, Normal S1, Normal S2 Abdomen: Bowel Sounds Present, Distended, Tender Extremities: No clubbing, No cyanosis Skin: No breakdown Musculoskeletal: No Tenderness to Palpation of Joints or Extremities Lymphatic: No Cervical, Supraclavicular, or Inguinal Adenopathy Neurological: Neuro grossly intact Psych/Mental Status: Normal Affect Labs (Last 48 Hours) 06/23/19 06/23/19 06/23/19 13:40 13:40 13:40 WBC 16.4 H RBC 3.90 L Hgb 12.6 Hct 39.0 MCV 100.0 H MCH 32.3 H MCHC 32.3 RDW Std Deviation 52.2 H RDW Coeff of Viviane 14.1 Plt Count 151 MPV 9.9 Immature Gran % (Auto) 0.600 Neut % (Auto) 83.4 H Lymph % (Auto) 5.9 L Falls % (Auto) 9.2 Eos % (Auto) 0.7 Baso % (Auto) 0.2 Absolute Neuts (auto) 13.6 H Absolute Lymphs (auto) 0.96 Nucleated RBC % 0 Differential Comment COMMENT Diff Path Review November foll ESR PT 17.4 H INR 1.4 Sodium 139 Potassium 3.9 Chloride 102 Carbon Dioxide 33.0 H Anion Gap 4 L BUN 18 Creatinine 1.03 H Estim Creat Clear Calc 41.38 Est GFR (MDRD) Af Amer 67 Est GFR (MDRD) Non-Af 56 L BUN/Creatinine Ratio 17.5 Glucose 121 H Hemoglobin A1c Calcium 8.4 L Phosphorus Magnesium Total Bilirubin 3.10 H Direct Bilirubin AST 51 H ALT 32 Alkaline Phosphatase 185 H Ammonia Lactate Dehydrogenase Troponin I < 0.015 C-React Prot Ext Range Total Protein 7.9 Albumin 2.5 L Globulin 5.4 H Albumin/Globulin Ratio 0.5 L Lipase 54 L TSH Urine Color Urine Clarity Urine pH Ur Specific [place] Urine Protein Urine Glucose (UA) Urine Ketones Urine Occult Blood Urine Nitrite Urine Bilirubin Urine Urobilinogen Ur Leukocyte Esterase Urine RBC Urine WBC Ur Squamous Epith Cells Urine Bacteria Hyaline Casts Urine Mucus 06/23/19 06/23/19 06/23/19 13:40 15:16 15:42 WBC RBC Hgb Hct MCV MCH MCHC RDW Std Deviation RDW Coeff of Viviane Plt Count MPV Immature Gran % (Auto) Neut % (Auto) Lymph % (Auto) Falls % (Auto) Eos % (Auto) Baso % (Auto) Absolute Neuts (auto) Absolute Lymphs (auto) Nucleated RBC % Differential Comment Diff Path Review ESR PT INR Sodium Potassium Chloride Carbon Dioxide Anion Gap BUN Creatinine Estim Creat Clear Calc Est GFR (MDRD) Af Amer Est GFR (MDRD) Non-Af BUN/Creatinine Ratio Glucose Hemoglobin A1c Calcium Phosphorus Magnesium 1.6 Total Bilirubin Direct Bilirubin AST ALT Alkaline Phosphatase Ammonia 21.0 Lactate Dehydrogenase Troponin I C-React Prot Ext Range Total Protein Albumin Globulin Albumin/Globulin Ratio Lipase TSH Urine Color Domonique Urine Clarity Clear Urine pH 5.0 Ur Specific [place] 1.025 Urine Protein 30 H Urine Glucose (UA) Normal Urine Ketones 5 H Urine Occult Blood 10 H Urine Nitrite Positive H Urine Bilirubin 3 H Urine Urobilinogen 8 H Ur Leukocyte Esterase 25 H Urine RBC 0 SEEN Urine WBC 0-5 SEEN Ur Squamous Epith Cells 0-5 SEEN Urine Bacteria 2+ Hyaline Casts Urine Mucus 0 SEEN 06/23/19 06/23/19 06/23/19 15:42 17:12 17:44 WBC RBC Hgb Hct MCV MCH MCHC RDW Std Deviation RDW Coeff of Viviane Plt Count MPV Immature Gran % (Auto) Neut % (Auto) Lymph % (Auto) Falls % (Auto) Eos % (Auto) Baso % (Auto) Absolute Neuts (auto) Absolute Lymphs (auto) Nucleated RBC % Differential Comment Diff Path Review ESR 62 H PT INR Sodium Potassium Chloride Carbon Dioxide Anion Gap BUN Creatinine Estim Creat Clear Calc Est GFR (MDRD) Af Amer Est GFR (MDRD) Non-Af BUN/Creatinine Ratio Glucose Hemoglobin A1c Calcium Phosphorus Magnesium Total Bilirubin Direct Bilirubin 1.46 H AST ALT Alkaline Phosphatase Ammonia Lactate Dehydrogenase Troponin I C-React Prot Ext Range Total Protein Albumin Globulin Albumin/Globulin Ratio Lipase TSH Urine Color Domonique Urine Clarity Clear Urine pH 5.0 Ur Specific [place] 1.025 Urine Protein 30 H Urine Glucose (UA) Normal Urine Ketones 5 H Urine Occult Blood Negative Urine Nitrite Positive H Urine Bilirubin 3 H Urine Urobilinogen 4 H Ur Leukocyte Esterase 25 H Urine RBC 0 SEEN Urine WBC 0 SEEN Ur Squamous Epith Cells 0 SEEN Urine Bacteria 1+ Hyaline Casts 0-5 SEEN Urine Mucus 0 SEEN 06/23/19 06/23/19 06/23/19 17:44 17:44 20:55 WBC RBC Hgb Hct MCV MCH MCHC RDW Std Deviation RDW Coeff of Viviane Plt Count MPV Immature Gran % (Auto) Neut % (Auto) Lymph % (Auto) Falls % (Auto) Eos % (Auto) Baso % (Auto) Absolute Neuts (auto) Absolute Lymphs (auto) Nucleated RBC % Differential Comment Diff Path Review ESR PT INR Sodium Potassium Chloride Carbon Dioxide Anion Gap BUN Creatinine Estim Creat Clear Calc Est GFR (MDRD) Af Amer Est GFR (MDRD) Non-Af BUN/Creatinine Ratio Glucose Hemoglobin A1c 5.1 Calcium Phosphorus 3.4 Magnesium Total Bilirubin Direct Bilirubin AST ALT Alkaline Phosphatase Ammonia Lactate Dehydrogenase 283 H Troponin I C-React Prot Ext Range 38.20 H Total Protein Albumin Globulin Albumin/Globulin Ratio Lipase TSH 1.49 Urine Color Domonique Urine Clarity Clear Urine pH 5.0 Ur Specific [place] 1.025 Urine Protein 15 H Urine Glucose (UA) Normal Urine Ketones 5 H Urine Occult Blood 10 H Urine Nitrite Positive H Urine Bilirubin 3 H Urine Urobilinogen 4 H Ur Leukocyte Esterase 25 H Urine RBC 0-5 SEEN Urine WBC 0-5 SEEN Ur Squamous Epith Cells 0-5 SEEN Urine Bacteria 0 SEEN Hyaline Casts 50-100 SEEN Urine Mucus 0 SEEN Clinical Impression(s) from Imaging Studies Abdomen/Pelvis CT 06/23/19 13:45 IMPRESSION: Large right pleural effusion with compressive atelectasis in the right lung with shift of the heart and mediastinal structures towards the left side of the midline. Findings suggestive of cirrhosis of the liver with nodular contour and decreased size. Splenomegaly. 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 Ascites. Electronically Signed: Dorian Rand, at 15:06 EST , Service support , Chest CT 06/23/19 14:47 IMPRESSION: Large right pleural effusion with compressive atelectasis of the right lung with shift of the heart and mediastinal structures towards the left side of the midline. Ascites with evidence of cirrhosis of the liver and splenomegaly with varices in the splenic hilum. Electronically Signed: Dorian Samuelstim, at 15:09 EST , Service support , Current Medications Al Hydroxide/Mg Hydroxide (Mylanta Ii) 30 ml PO Q6H PRN PRN PRN Reason: Gastric Burning Albuterol Sulfate (Ventolin Aerosols) 2.5 mg INHALATION Q2H PRN PRN PRN Reason: SOB/Wheezing Bisacodyl (Dulcolax) 5 mg PO DAILY PRN PRN PRN Reason: Constipation Docusate Sodium (Colace) 100 mg PO BID [facility] Last Admin: 06/23/19 22:05 Dose: 100 mg Documented by: Magnesium Hydroxide (Milk Of Magnesia) 30 ml PO DAILY PRN PRN PRN Reason: Constipation Morphine Sulfate () 1 mg IV Q4H PRN PRN PRN Reason: Pain Score 6-10/10 Nutritional Formula (Lactose Free) (Ensure Enlive) 120 ml PO 4X/DAY [facility] Last Admin: 06/23/19 22:08 Dose: 120 ml Documented by: Ondansetron HCl (Zofran) 4 mg IV Q8H PRN PRN PRN Reason: NAUSEA/VOMITING Oxycodone HCl (Oxyir) 5 mg PO Q8H PRN PRN PRN Reason: Pain Score 4-5/10 Propranolol HCl (Inderal) 10 mg PO BID [facility] Last Admin: 06/23/19 22:09 Dose: Not Given Documented by: Sodium Chloride () 10 - 40 ml IV UD PRN PRN Reason: SALINE FLUSH Last Admin: 06/24/19 08:42 Dose: 10 ml Documented by: Assessment/Plan All Active Problems Pleural effusion, right (Acute) RA (rheumatoid arthritis) (Acute) Hyperglycemia (Acute) RECOMMENDATIONS: 1. Perform ultrasound-guided thoracentesis and send pleural fluid for LDH, total protein, cell count, culture, amylase, triglyceride, glucose and cytology. 2. Obtain outside hospital medical records to clarify patient's medical history, including previous pleural fluid studies. 3. Wean supplemental oxygen to maintain saturations at or above 90%. Encourage incentive spirometer use. 4. Start empiric antimicrobials. IMPRESSIONS: 1. Acute hypoxemic respiratory insufficiency, presumed secondary to large right pleural effusion I would recommend obtaining outside medical records with regards to prior work- up including pleural fluid studies in the past, prior to proceeding with Pleurx catheter placement. At this time, the etiology for the patient's large pleural effusion is unclear. Ultrasound-guided thoracentesis can be completed in the interim to provide symptom relief, pending review of outside hospital medical records. Wean supplemental oxygen to maintain saturations at or above 90%. Encourage incentive spirometer use. I will place pleural fluid studies, should thoracentesis be able to be completed. Echocardiogram is also pending. 2. 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 It is unclear what form of further work-up has been completed recently. We are awaiting outside hospital medical records to arrive for review. 3. Sepsis The patient did present to the hospital with hypotension, tachypnea, altered mental state and elevated white blood cell count. Potential sources of possible infection include the patient's pleural effusion, urinary source or peritoneal fluid infection (SBP). Therefore, the patient was placed this morning empirically on broad-spectrum antimicrobial coverage with meropenem, given that she has a reported penicillin allergy. I agree with holding supplemental IV fluids, as the patient is in a state of hypervolemia. 4. Questionable history of rheumatoid arthritis/hyperlipidemia Complicates care, management, recovery and prognosis. This note was generated with [email or web address] software. It may contain incorrect words, spelling, and punctuation that were not noted in checking the note before signing. Code Visit Inpatient E&M: 15730 Init Hosp L3
--- NOTE | 2019-06-24 10:02 | OP.PCM_ITS ---
Report of Operation Date of Procedure: 06/24/19 Pre-Operative Diagnosis: right pleural effusion with mediastinal shift Post-Operative Diagnosis: right pleural effusion with mediastinal shift Surgery/Procedure Performed:: right tunneled pleurex catheter with ultrasound guidance hospital administrator: None Type of Anesthesia:: Local MAC Anesthesiologist: Jamal Sinclair Specimen's removed: pleural fluid Drains: >2500 right pleural fluid Estimated Blood Loss (mL): minimal Fluids Replaced: 250 Description of Procedure: The patient was brought to the operating suite. The right chest site was marked in the holding area and the patient concurred this was the planned operative site. Sign was performed verifying patient, site, position, skip antibiotic prophylaxis-900 mg clindamycin due to penicillin allergy and DVT prophylaxis with SCDs. Ultrasound was used to evaluate the Right thoracic space and pleural fluid was noted to be at the planned site which was marked on the skin Following IV sedation, right chest and upper lateral abdomen were prepped and draped in the usual fashion. Timeout was performed verifying patient, site, position. Local anesthetic was injected and a Seldinger needle was used to access the Right pleural space without difficulty. a guidewire was inserted and advanced into the pleural space. Local anesthetic was injected and incision made for the catheter exit site. Next the catheter was tunneled from the skin exit site to the wire. Dilators were placed over the wire until the largest dilator with introducer sheath were placed. The wire and dilator removed. The catheter was fed through the introducer suture sheath and adjusted to the edge of the pleural surface with the fenestrations . There was good return of pleural fluid. The Pleurx catheter was affixed to an adapter and attached to a Pleur-evac at 20 cm suction. A total of approximately 3200 cc of fluid was drained. The catheter was secured with a 3-0 silk suture at the skin exit site. The thoracic site. Skin was closed with 4-0 Biosyn interrupted subcuticular sutures. Dermabond was applied to the thoracic site. A dressing was applied. The joints were taped and a large dressing placed over the drain exit site. The patient was brought to recovery room in stable condition with plans for a postprocedure chest x-ray. Grafts/Implants Used: pleurex catheter [id number] lot [id number] exp - 05/04/2021
--- NOTE | 2019-06-24 10:09 | RAD_ITS ---
STUDY: X-RAY CHEST REASON FOR EXAM: Female, 73 years old. POST CHEST TUBE PLACEMENT TECHNIQUE: Single AP portable view of the chest. COMPARISON: Chest CT yesterday FINDINGS: Hypoinflated lungs. Moderate right effusion with right lower lobe consolidation. Right chest tube is noted with tip in the region of the right lung apex. Left lung is essentially clear. Stable cardiomegaly. No pneumothorax RAD/CXR for Line Placement IMPRESSION: Moderate right effusion and right lower lobe consolidation. Left lung is clear. Electronically Signed: Cal Dodson DO at 10:41 EST Tel , Service support ,
[2019-06-24 10:29] LABS: Cytology, Body Fluid / CSF SEE PATHOLOGY REPORT
[2019-06-24 10:49] LABS: Red Cell Count/Body Fluid 0.003 10^6/ul
[2019-06-24 11:15] LABS: Glucose, Body Fluid 44 mg/dL (40-70); LDH,Body Fluid 165 Units/l (Not Establ.)
[2019-06-24 11:26] LABS: ALB/GLOB Ratio 0.5 RATIO (0.9-2.4); Globulin 4.7 g/dL (2.2-4.2); LDH 207 U/L (84-246)
--- NOTE | 2019-06-24 11:41 | NURSING ---
vs post surgery taken.
--- NOTE | 2019-06-24 12:17 | CASEMGMT ---
RN CM Note: attempted x 2 to complete RN CM assessment. Pt for placement of pleurx catheter, and now sleepy, unable to participate in assessment. Eden DURONN RN ACM
[2019-06-24 12:22] LABS: Auto B Fluid Analyzer BKGD Ct COUNTS W/IN LIMITS (W/IN LIMITS)
[2019-06-24 12:23] LABS: Appearance/Body Fluid CLOUDY; Color/Body Fluid YELLOW; Source- Body Fluid THORACENTESIS
[2019-06-24 12:25] LABS: Lymphocytes 1 %; Monocytes 15 %; Neutrophil (Segs) 84 %
[2019-06-24 12:26] LABS: Body Fluid QC Type(s) BF1Q
--- NOTE | 2019-06-24 12:28 | PN_ITS ---
Patient Problems: Active and Suspected Problems Pleural effusion, right (Acute) RA (rheumatoid arthritis) (Acute) pt has been told she has RA but, she is not on any medications Hyperglycemia (Acute) Subjective: Patient seen and examined. She was admitted through the ED on 06/23/2019 with a complaint of abdominal pain. On admission, abdominal pain not resolved. Vitals on admission was significant for respiratory rate of 26 and she was saturating at 86% on room air and blood pressure was 56/36. Labs were significant for a bilirubin of 3.1 with AST of 51 and ALT of 32 as well as ALP of 185. CT of the abdomen and pelvis showed a large right pleural effusion with compressive atelectasis in the right lung with shift of the heart and mediastinal structures towards the left side of the midline and there also findings of cirrhosis with the liver having a nodular contour and decreased size as well as significant splenomegaly and varices in the region of the splenic hilum and she also had ascites present. CT of the chest done showed a large right pleural effusion extending into the apex of the right lung. Patient stated that she was on spironolactone but she had stopped this because she had very could cause problems with the eyes and said she had been getting thoracentesis at [facility] with her last thoracentesis being in May. She was admitted to be managed for acute hypoxia, hypotension, decompensated cirrhosis and ascites. On admission, general surgery was consulted for Pleurx catheter placement. Pulmonology was not consulted. She was hydrated with 1 L of normal saline and Lasix was held. Patient seen and examined today. She was seen just prior to being taken down for Pleurx catheter placement. Patient was quite confused and tangential in speech and could not really give much of a history. She initially said that she had been having thoracentesis and when asked where the fluid was drained from she pointed to her abdomen and insisted that that is where she had fluid drained from. Hospitalist was able to speak to patient's son and next of kin, Bassem Dukes on phone prior to patient going down for Pleurx catheter placement. According to her son, patient had been diagnosed with what he thinks was a liver mass a few years ago at [facility] and she had been considered for transplant but then she did not qualify and was also noncompliant. Patient had been lost to follow-up at [facility] but had been following up at [facility] according to the son and she had had thoracentesis there for pleural effusion several times with the last time being about a week and a half ago. He thinks that he drained about 1 to 2 L then. He says that he remembers they were told that the fluid was not due to cancer but he does not remember what he said was due to. According to son, physicians at [facility] considered a TIPS procedure placement of a Pleurx catheter and we are leaning more towards the Pleurx catheter but patient had not yet given her consent. Since patient was not given her consent for the procedure, son was also agreeable and wanted the wax catheter placed. Copy of patient's notes from [facility] was obtained per Dr. Real who was able to access [facility] records. Notes dated from October 15, 2017 showed that she was admitted at [facility] after she was transferred from an outside hospital where she presented with jaundice and dark urine. She had previously been seen at [facility] in June 2017 when she presented with right upper quadrant pain and CT showed significant intra-and extrahepatic biliary dilatation and associated gallbladder distention with a 4 cm hyperdense lesion appreciated in the gallbladder fundus. Patient declined an MRI and a CA-19-9 ordered came back at 314 and LFTs subsequently improved and she was discharged. She subsequently had an MRCP done which demonstrated central biliary obstruction likely cholangiocarcinoma, mild ascites and splenomegaly and cholecystolithiasis. At the [facility] she had an ERCP done on 326 which demonstrated a single segment stenosis of the common bile duct without ability to traverse the segment. On 09/29/2017 she had a right- sided PTHC which demonstrated narrowing of the biliary tree at the hilum of the liver and inability to traverse the hilum and an external biliary drain was placed. At that time she was also found to have a moderate sized pleural effusion and had thoracentesis draining thousand 500 mils of serous fluid with pleural fluid negative for malignancy per cytology. 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 On 10/18/2018 she had ERCP with successful cannulation of the bile duct. At that time, total bilirubin was more than 11. Plan was for her to complete ERCP with stent on 10/20/2017. However it is unclear if this was ever done. Records have been requested from [facility] and are pending. Vitals/I&O's: Vital Signs Temp Pulse Resp BP Pulse Ox 98.1 F 79 20 H 108/59 L 98 06/24/19 11:40 06/24/19 11:40 06/24/19 11:40 06/24/19 11:40 06/24/19 11:40 Oxygen Flow Rate (L/min) 3 Oxygen Delivery Method Nasal Cannula Weight: 143 lb 8.335 oz Body Mass Index (BMI) 24.4 Orthostatic Vital Signs Start: 06/24/19 03:04 Freq: q24h Status: Active Protocol: Activity Type Activity Date Activity User E-Sign Co-Sign Detail Recorded Client Recorded Date Recorded By Document 06/24/19 03:00 MAB [id number] 06/24/19 03:05 MAB 06/24/19 03:00 Orthostatic Vitals Standing -Blood Pressure (90/60-120/80) 110/50 L -Extremity Use Left Arm -Pulse Rate (60-100) 87 Sitting -Blood Pressure (90/60-120/80) 115/48 L -Extremity Use Left Arm -Pulse Rate (60-100) 86 Lying -Blood Pressure (90/60-120/80) 114/49 L -Extremity Use Left Arm -Pulse Rate (60-100) 82 Intake and Output for Last 24 Hours 06/22/19 06/23/19 06/24/19 23:59 23:59 23:59 Intake Total 1000 / 1240 346 / 346 Output Total 270 / 270 Balance 1000 / 1170 76 / 76 General: Alert, Oriented x3, Cooperative, No apparent distress, Confused HEENT: Atraumatic, PERRLA, EOMI, Normocephalic Oral: Moist Mucosa Neck: Supple, No JVD, Negative Carotid Bruits Lungs: - - Markedly decreased breath sounds in the right upper, mid and lower lung chairez. Decreased vocal fremitus. On 3 L of oxygen. Cardiovascular: Regular rate, Regular Rhythm, Normal S1, Normal S2, No murmurs Abdomen: - - Abdomen moderately distended, with positive fluid thrill. She had moderate tenderness of the right upper quadrant area in the area of the liver. Extremities: No clubbing, No cyanosis, No edema, Capillary Refill Less than 3 Seconds Skin: No rashes, No breakdown Musculoskeletal: No Tenderness to Palpation of Joints or Extremities Lymphatic: No Cervical, Supraclavicular, or Inguinal Adenopathy Neurological: Cranial nerves II-XII grossly intact Psych/Mental Status: Normal Affect, Appropriate, Alert and oriented to time, place, person, mood and affect Laboratory Results 06/23/19 13:40: WBC 16.4 H, RBC 3.90 L, Hgb 12.6, Hct 39.0, MCV 100.0 H, MCH 32.3 H, MCHC 32.3, RDW Std Deviation 52.2 H, RDW Coeff of Viviane 14.1, Plt Count 151, MPV 9.9, Immature Gran % (Auto) 0.600, Neut % (Auto) 83.4 H, Lymph % (Auto) 5.9 L, [place] % (Auto) 9.2, Eos % (Auto) 0.7, Baso % (Auto) 0.2, Absolute Neuts (auto) 13.6 H, Absolute Lymphs (auto) 0.96, Nucleated RBC % 0, Differential Comment COMMENT, Diff Path Review November foll 06/23/19 13:40: Sodium 139, Potassium 3.9, Chloride 102, Carbon Dioxide 33.0 H, Anion Gap 4 L, BUN 18, Creatinine 1.03 H, Estim Creat Clear Calc 41.38, Est GFR (MDRD) Af Amer 67, Est GFR (MDRD) Non-Af 56 L, BUN/Creatinine Ratio 17.5, Glucose 121 H, Calcium 8.4 L, Total Bilirubin 3.10 H, AST 51 H, ALT 32, Alkaline Phosphatase 185 H, Troponin I < 0.015, Total Protein 7.9, Albumin 2.5 L, Globulin 5.4 H, Albumin/Globulin Ratio 0.5 L, Lipase 54 L 06/23/19 13:40: PT 17.4 H, INR 1.4 06/23/19 13:40: Magnesium 1.6 06/23/19 15:16: Urine Color Domonique, Urine Clarity Clear, Urine pH 5.0, Ur Specific [place] 1.025, Urine Protein 30 H, Urine Glucose (UA) Normal, Urine Ketones 5 H, Urine Occult Blood 10 H, Urine Nitrite Positive H, Urine Bilirubin 3 H, Urine Urobilinogen 8 H, Ur Leukocyte Esterase 25 H, Urine RBC 0 SEEN, Urine WBC 0-5 SEEN, Ur Squamous Epith Cells 0-5 SEEN, Urine Bacteria 2+, Urine Mucus 0 SEEN 06/23/19 15:42: Ammonia 21.0 06/23/19 15:42: Direct Bilirubin 1.46 H 06/23/19 17:12: Urine Color Domonique, Urine Clarity Clear, Urine pH 5.0, Ur Specific [place] 1.025, Urine Protein 30 H, Urine Glucose (UA) Normal, Urine Ketones 5 H, Urine Occult Blood Negative, Urine Nitrite Positive H, Urine Bilirubin 3 H, Urine Urobilinogen 4 H, Ur Leukocyte Esterase 25 H, Urine RBC 0 SEEN, Urine WBC 0 SEEN, Ur Squamous Epith Cells 0 SEEN, Urine Bacteria 1+, Hyaline Casts 0-5 SEEN, Urine Mucus 0 SEEN 06/23/19 17:44: ESR 62 H 06/23/19 17:44: Phosphorus 3.4, Lactate Dehydrogenase 283 H, C-React Prot Ext Range 38.20 H, TSH 1.49 06/23/19 17:44: Hemoglobin A1c 5.1 06/23/19 20:55: Urine Color Domonique, Urine Clarity Clear, Urine pH 5.0, Ur Specific [place] 1.025, Urine Protein 15 H, Urine Glucose (UA) Normal, Urine Ketones 5 H, Urine Occult Blood 10 H, Urine Nitrite Positive H, Urine Bilirubin 3 H, Urine Urobilinogen 4 H, Ur Leukocyte Esterase 25 H, Urine RBC 0-5 SEEN, Urine WBC 0-5 SEEN, Ur Squamous Epith Cells 0-5 SEEN, Urine Bacteria 0 SEEN, Hyaline Casts 50-100 SEEN, Urine Mucus 0 SEEN 06/24/19 09:34: Fluid Glucose 44, Fluid Total Protein 2.0, Fluid LDH 165 06/24/19 09:34: Fluid pH Pending 06/24/19 09:34: Fluid Source THORACENTESIS, Fluid Color YELLOW, Fluid Appearance CLOUDY, Fluid WBC 25.220, Fluid RBC 0.003, Fluid Tot Cell Count 25.104 H, Fld Polynuclear WBCs % Pending, Fld Mononuclear WBCs % Pending, Fluid Neutrophils 84, Fluid Lymphocytes 1, Fluid Monocytes 15, Fl Pathologist Comment Pending, Fluid Comment 2 Pending 06/24/19 09:34: Miscellaneous Cytology Pending 06/24/19 09:34: Fluid Amylase Pending 06/24/19 10:49: [id number]-Rbbnoyigpgb Pending, PIPPA Screen Pending, JAIDA-1 Antibody Pending, SS-A/Ro IgG Antibody Pending, SS-B/La IgG Antibody Pending, Sm (Woodard) Antibody Pending, V GROOVE CUTTER Antibody Pending, Scl-70 Scleroderma Ab Pending, Double Strand DNA Ab Pending, Centromere B Antibody Pending, Anti-Mitochondrial Ab Pending 06/24/19 10:49: Anti-Smooth Muscle Ab Pending, Hepatitis A IgM Ab Pending, Hepatitis A Ab Total Pending, Hep Bs Antigen Pending, Hep B Core Total Ab Pending, Hep B Core IgM Ab Pending 06/24/19 10:49: Lactate Dehydrogenase 207, Total Protein 7.0, Globulin 4.7 H, Albumin/Globulin Ratio 0.5 L Diagnostic Data Abdomen/Pelvis CT 06/23/19 13:45 IMPRESSION: Large right pleural effusion with compressive atelectasis in the right lung with shift of the heart and mediastinal structures towards the left side of the midline. Findings suggestive of cirrhosis of the liver with nodular contour and decreased size. Splenomegaly. 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 Ascites. Electronically Signed: Dorian Rand, at 15:06 EST , Service support , Chest CT 06/23/19 14:47 IMPRESSION: Large right pleural effusion with compressive atelectasis of the right lung with shift of the heart and mediastinal structures towards the left side of the midline. Ascites with evidence of cirrhosis of the liver and splenomegaly with varices in the splenic hilum. Electronically Signed: Dorian Rand, at 15:09 EST , Service support , Chest X-Ray 06/24/19 10:09 IMPRESSION: Moderate right effusion and right lower lobe consolidation. Left lung is clear. Electronically Signed: Cal Dodson DO at 10:41 EST Tel , Service support , Current Medications Al Hydroxide/Mg Hydroxide (Mylanta Ii) 30 ml PO Q6H PRN PRN PRN Reason: Gastric Burning Albuterol Sulfate (Ventolin Aerosols) 2.5 mg INHALATION Q2H PRN PRN PRN Reason: SOB/Wheezing Bisacodyl (Dulcolax) 5 mg PO DAILY PRN PRN PRN Reason: Constipation Docusate Sodium (Colace) 100 mg PO BID [facility] Last Admin: 06/24/19 11:29 Dose: Not Given Documented by: Meropenem 1 gm/ Sodium (Chloride) 120 mls @ 33 mls/hr IV Q12 [facility] Last Admin: 06/24/19 11:30 Dose: 33 mls/hr Documented by: Magnesium Hydroxide (Milk Of Magnesia) 30 ml PO DAILY PRN PRN PRN Reason: Constipation Morphine Sulfate () 1 mg IV Q4H PRN PRN PRN Reason: Pain Score 6-10/10 Nutritional Formula (Lactose Free) (Ensure Enlive) 120 ml PO 4X/DAY [facility] Last Admin: 06/24/19 11:29 Dose: Not Given Documented by: Ondansetron HCl (Zofran) 4 mg IV Q8H PRN PRN PRN Reason: NAUSEA/VOMITING Oxycodone HCl (Oxyir) 5 mg PO Q8H PRN PRN PRN Reason: Pain Score 4-5/10 Propranolol HCl (Inderal) 10 mg PO BID [facility] Last Admin: 06/24/19 11:30 Dose: Not Given Documented by: Sodium Chloride () 10 - 40 ml IV UD PRN PRN Reason: SALINE FLUSH Last Admin: 06/24/19 08:42 Dose: 10 ml Documented by: STROKE Vital Signs/Narrative: Vital Signs Temp Pulse Resp BP Pulse Ox 06/24/19 11:40 98.1 F 79 20 H 108/59 L 98 06/24/19 11:00 97.4 F L 79 24 H 105/58 L 100 06/24/19 10:45 75 24 H 94/57 L 100 06/24/19 10:35 70 30 H 91/52 L 95 06/24/19 10:30 64 30 H 75/51 L 92 06/24/19 10:25 64 16 79/52 L 99 06/24/19 10:20 64 30 H 84/49 L 99 06/24/19 10:17 97.2 F L 99 30 H 84/69 L 99 Medical Necessity - Tobacco Use Smoking Status: Never smoker Tobacco Use: Non-smoker Assessment/Plan All Active Problems Pleural effusion, right (Acute) RA (rheumatoid arthritis) (Acute) Hyperglycemia (Acute) 1. Acute hypoxic respiratory insufficiency due to large right pleural effusion * Large right pleural effusion diagnosed as per CT person, had thoracentesis done at [place] about a week and a half ago. * she was diagnosed with cholangio-carcinoma in [facility] about a year ago but has not really been following up there. * General surgery was consulted on admission for Pleurx catheter. * Urgent pulmonology consult placed. Per discussion hospital is had with pulmonology and general surgery, exact cause of pleural effusion is not known but subsequently [facility] records was reviewed and this showed that she had had it in 2018 and fluid was negative for malignant cells per cytology. I did express my reservations about placement of Pleurx catheter when we did not know the exact cause of her effusion. However, per discussion with general surgery, the Pleurx catheter can be a temporary measure to relieve the effusion and to allow the lungs to expand and can be removed subsequently as needed. * Will send pleural fluid for analysis. * IV antibiotics-meropenem initiated per discussion with general surgery as we were not sure if it was an infective process or not. Notes that WBC is also elevated. * Treat oxygen to maintain saturation above 90%. * Breathing treatments. * 2. Right pleural effusion: * As under 1. 2D echo pending. * 2D echo showed EF of 65% with stage I diastolic dysfunction and no regional wall motion abnormalities. Pulmonary artery systolic pressure is 52 mmHg. 3. History of cholangiocarcinoma with cirrhosis of the liver * CT of the abdomen and pelvis did show cirrhotic liver with splenomegaly and esophageal varices. * On propranolol and Lasix. Lasix held on account of hypotension. Will hold off on hydrating patient with IV fluids as that can worsen ascites. * Liver enzymes are elevated with total bilirubin of 3 and direct lumen of 1.46. AST is 51 and ALT is 32 with ALP of 185. * records pending from [facility]. Records from [facility] showed that she was diagnosed with cholangiocarcinoma in 2018 * 4. History of rheumatoid arthritis: Not on any medication for that she states she has a history of it. 5. Hyperlipidemia: Diet controlled. Not on statin. DVT prophylaxis: SCDs Code Visit Inpatient E&M: 01008 Subs Hosp L3
[2019-06-25] VITALS (10 sets, daily range): BP systolic 102–110; BP diastolic 52–74; PULSE 79–105; RESP 18; TEMP 36.9–37; O2SAT 94–97
--- NOTE | 2019-06-25 04:24 | NURSING ---
pt with very little output. Bladder scanned pt, which showed 169ml. Pt also having very little intake, on 1000 cc fluid restriction. Notified Dr. Mccoy while he was on the unit. Per Dr. Mccoy, ''noted'' we should continue to monitor and will discuss with dayshift provider. SERGE Benjamin
--- NOTE | 2019-06-25 04:45 | RAD_ITS ---
STUDY: X-RAY CHEST REASON FOR EXAM: Female, 73 years old. PLEURAL EFFUSION TECHNIQUE: 1 view COMPARISON: 06/24/2019 FINDINGS: The right-sided pleural effusion noted in yesterday''s examination has significantly decreased. There is still some fluid in the minor fissure. A right chest tube is in place. There is no residual hydropneumothorax. The left lung is clear. The heart is slightly enlarged. No failure Normal visualized thoracic spine. Normal visualized ribs, clavicles, and shoulders. There is no demonstrated abnormality of the visualized soft tissue structures of the upper abdomen. RAD/Chest 1 View (Portable) IMPRESSION: Mild cardiomegaly with no evidence of central vascular congestion. A significant decrease in the right-sided pleural effusion noted in yesterday''s examination. There is a right chest tube in place Electronically Signed: Baljinder Whitehead MD at 5:50 EST Tel , Service support ,
--- NOTE | 2019-06-25 07:24 | PN_ITS ---
Patient Problems: Active and Suspected Problems Pleural effusion, right (Acute) RA (rheumatoid arthritis) (Acute) pt has been told she has RA but, she is not on any medications Hyperglycemia (Acute) Subjective: The patient was seen and examined at the bedside this morning. Events from the last 24 hours have been reviewed. The patient is currently afebrile, hemodynamically stable and maintaining appropriate oxygen saturations on 2 L/min via nasal cannula. Review of the patient's plain film chest x-ray from this morning revealed near complete resolution of the patient's right sided pleural effusion. Pleurx catheter is in place. Objective: The patient's most recent lab work, culture data and imaging studies have all been personally reviewed. Surface echocardiogram revealed normal LV size with an ejection fraction of 65% and stage I diastolic dysfunction. Pulmonary artery systolic pressure was estimated to be [address] abdomen/pelvis revealed a large right-sided pleural effusion with compressive atelectasis and mediastinal shift to the left. The liver was cirrhotic in appearance. Ascites was present. - Physical Exam Vitals/I&O's: Vital Signs Temp Pulse Resp BP Pulse Ox 98.5 F 88 18 109/59 L 95 06/25/19 04:15 06/25/19 04:15 06/25/19 04:15 06/25/19 04:15 06/25/19 07:07 Oxygen Flow Rate (L/min) 1.5 Oxygen Delivery Method Nasal Cannula Weight: 143 lb 11.862 oz Body Mass Index (BMI) 24.4 Orthostatic Vital Signs Start: 06/24/19 03:04 Freq: q24h Status: Active Protocol: Activity Type Activity Date Activity User E-Sign Co-Sign Detail Recorded Client Recorded Date Recorded By Document 06/24/19 03:00 [facility] [id number] 06/24/19 03:05 MAB 06/24/19 03:00 Orthostatic Vitals Standing -Blood Pressure (90/60-120/80) 110/50 L -Extremity Use Left Arm -Pulse Rate (60-100) 87 Sitting -Blood Pressure (90/60-120/80) 115/48 L -Extremity Use Left Arm -Pulse Rate (60-100) 86 Lying -Blood Pressure (90/60-120/80) 114/49 L -Extremity Use Left Arm -Pulse Rate (60-100) 82 Intake and Output for Last 24 Hours 06/23/19 06/24/19 06/25/19 23:59 23:59 23:59 Intake Total 1000 / 1240 798.15 / 798.15 77.85 / 77.85 Output Total 720 / 720 210 / 210 Balance 1000 / 1170 78.15 / 78.15 -132.15 / -132.15 General: Alert, Cooperative, No apparent distress HEENT: Atraumatic, PERRLA, Normocephalic Oral: No Gingival or Mucosal Lesions/ Ulcerations Neck: Supple, No Nodes, Trachea Midline Lungs: - - Improved air movement in right hemithorax. No wheezes, rales or rhonchi. PleurX catheter in place. Cardiovascular: Regular rate, Regular Rhythm, Normal S1, Normal S2, No murmurs Abdomen: Bowel Sounds Present, Soft, Distended Extremities: No clubbing, No cyanosis, No edema Skin: No breakdown Musculoskeletal: No Tenderness to Palpation of Joints or Extremities Lymphatic: No Cervical, Supraclavicular, or Inguinal Adenopathy Neurological: Neuro grossly intact Psych/Mental Status: Normal Affect, - - A/O x 3 Labs (Last 48 Hours) 06/23/19 06/23/19 06/23/19 13:40 13:40 13:40 WBC 16.4 H RBC 3.90 L Hgb 12.6 Hct 39.0 MCV 100.0 H MCH 32.3 H MCHC 32.3 RDW Std Deviation 52.2 H RDW Coeff of Viviane 14.1 Plt Count 151 MPV 9.9 Immature Gran % (Auto) 0.600 Neut % (Auto) 83.4 H Lymph % (Auto) 5.9 L [place] % (Auto) 9.2 Eos % (Auto) 0.7 Baso % (Auto) 0.2 Absolute Neuts (auto) 13.6 H Absolute Lymphs (auto) 0.96 Nucleated RBC % 0 Differential Comment COMMENT Diff Path Review May foll ESR PT 17.4 H INR 1.4 Sodium 139 Potassium 3.9 Chloride 102 Carbon Dioxide 33.0 H Anion Gap 4 L BUN 18 Creatinine 1.03 H Estim Creat Clear Calc 41.38 Est GFR (MDRD) Af Amer 67 Est GFR (MDRD) Non-Af 56 L BUN/Creatinine Ratio 17.5 Glucose 121 H Hemoglobin A1c Calcium 8.4 L Phosphorus Magnesium Total Bilirubin 3.10 H Direct Bilirubin AST 51 H ALT 32 Alkaline Phosphatase 185 H Ammonia Lactate Dehydrogenase Troponin I < 0.015 C-React Prot Ext Range Total Protein 7.9 Albumin 2.5 L Globulin 5.4 H Albumin/Globulin Ratio 0.5 L Hivkn-0-Ngsfulirhsc Lipase 54 L TSH Urine Color Urine Clarity Urine pH Ur Specific [place] Urine Protein Urine Glucose (UA) Urine Ketones Urine Occult Blood Urine Nitrite Urine Bilirubin Urine Urobilinogen Ur Leukocyte Esterase Urine RBC Urine WBC Ur Squamous Epith Cells Urine Bacteria Hyaline Casts Urine Mucus Fluid Source Fluid Color Fluid Appearance Fluid pH Fluid WBC Fluid RBC Fluid Tot Cell Count Fld Polynuclear WBCs % Fld Mononuclear WBCs % Fluid Neutrophils Fluid Lymphocytes Fluid Monocytes Fl Pathologist Comment Fluid Glucose Fluid Total Protein Fluid LDH Fluid Amylase Fluid Comment 2 PIPPA Screen JAIDA-1 Antibody SS-A/Ro IgG Antibody SS-B/La IgG Antibody Sm (Woodard) Antibody PHYSICAL MEDICINE SPECIALIST Antibody Scl-70 Scleroderma Ab Double Strand DNA Ab Centromere B Antibody Anti-Mitochondrial Ab Anti-Smooth Muscle Ab Hepatitis A IgM Ab Hepatitis A Ab Total Hep Bs Antigen Hep B Core Total Ab Hep B Core IgM Ab Miscellaneous Cytology 06/23/19 06/23/19 06/23/19 13:40 15:16 15:42 WBC RBC Hgb Hct MCV MCH MCHC RDW Std Deviation RDW Coeff of Viviane Plt Count MPV Immature Gran % (Auto) Neut % (Auto) Lymph % (Auto) [place] % (Auto) Eos % (Auto) Baso % (Auto) Absolute Neuts (auto) Absolute Lymphs (auto) Nucleated RBC % Differential Comment Diff Path Review ESR PT INR Sodium Potassium Chloride Carbon Dioxide Anion Gap BUN Creatinine Estim Creat Clear Calc Est GFR (MDRD) Af Amer Est GFR (MDRD) Non-Af BUN/Creatinine Ratio Glucose Hemoglobin A1c Calcium Phosphorus Magnesium 1.6 Total Bilirubin Direct Bilirubin AST ALT Alkaline Phosphatase Ammonia 21.0 Lactate Dehydrogenase Troponin I C-React Prot Ext Range Total Protein Albumin Globulin Albumin/Globulin Ratio Grojl-3-Zntznfpqsof Lipase TSH Urine Color Domonique Urine Clarity Clear Urine pH 5.0 Ur Specific [place] 1.025 Urine Protein 30 H Urine Glucose (UA) Normal Urine Ketones 5 H Urine Occult Blood 10 H Urine Nitrite Positive H Urine Bilirubin 3 H Urine Urobilinogen 8 H Ur Leukocyte Esterase 25 H Urine RBC 0 SEEN Urine WBC 0-5 SEEN Ur Squamous Epith Cells 0-5 SEEN Urine Bacteria 2+ Hyaline Casts Urine Mucus 0 SEEN Fluid Source Fluid Color Fluid Appearance Fluid pH Fluid WBC Fluid RBC Fluid Tot Cell Count Fld Polynuclear WBCs % Fld Mononuclear WBCs % Fluid Neutrophils Fluid Lymphocytes Fluid Monocytes Fl Pathologist Comment Fluid Glucose Fluid Total Protein Fluid LDH Fluid Amylase Fluid Comment 2 PIPPA Screen JAIDA-1 Antibody SS-A/Ro IgG Antibody SS-B/La IgG Antibody Sm (Woodard) Antibody PHYSICAL MEDICINE SPECIALIST Antibody Scl-70 Scleroderma Ab Double Strand DNA Ab Centromere B Antibody Anti-Mitochondrial Ab Anti-Smooth Muscle Ab Hepatitis A IgM Ab Hepatitis A Ab Total Hep Bs Antigen Hep B Core Total Ab Hep B Core IgM Ab Miscellaneous Cytology 06/23/19 06/23/19 06/23/19 15:42 17:12 17:44 WBC RBC Hgb Hct MCV MCH MCHC RDW Std Deviation RDW Coeff of Viviane Plt Count MPV Immature Gran % (Auto) Neut % (Auto) Lymph % (Auto) [place] % (Auto) Eos % (Auto) Baso % (Auto) Absolute Neuts (auto) Absolute Lymphs (auto) Nucleated RBC % Differential Comment Diff Path Review ESR 62 H PT INR Sodium Potassium Chloride Carbon Dioxide Anion Gap BUN Creatinine Estim Creat Clear Calc Est GFR (MDRD) Af Amer Est GFR (MDRD) Non-Af BUN/Creatinine Ratio Glucose Hemoglobin A1c Calcium Phosphorus Magnesium Total Bilirubin Direct Bilirubin 1.46 H AST ALT Alkaline Phosphatase Ammonia Lactate Dehydrogenase Troponin I C-React Prot Ext Range Total Protein Albumin Globulin Albumin/Globulin Ratio Rhqna-0-Zpghfovxrus Lipase TSH Urine Color Domonique Urine Clarity Clear Urine pH 5.0 Ur Specific [place] 1.025 Urine Protein 30 H Urine Glucose (UA) Normal Urine Ketones 5 H Urine Occult Blood Negative Urine Nitrite Positive H Urine Bilirubin 3 H Urine Urobilinogen 4 H Ur Leukocyte Esterase 25 H Urine RBC 0 SEEN Urine WBC 0 SEEN Ur Squamous Epith Cells 0 SEEN Urine Bacteria 1+ Hyaline Casts 0-5 SEEN Urine Mucus 0 SEEN Fluid Source Fluid Color Fluid Appearance Fluid pH Fluid WBC Fluid RBC Fluid Tot Cell Count Fld Polynuclear WBCs % Fld Mononuclear WBCs % Fluid Neutrophils Fluid Lymphocytes Fluid Monocytes Fl Pathologist Comment Fluid Glucose Fluid Total Protein Fluid LDH Fluid Amylase Fluid Comment 2 PIPPA Screen JAIDA-1 Antibody SS-A/Ro IgG Antibody SS-B/La IgG Antibody Sm (Woodard) Antibody PHYSICAL MEDICINE SPECIALIST Antibody Scl-70 Scleroderma Ab Double Strand DNA Ab Centromere B Antibody Anti-Mitochondrial Ab Anti-Smooth Muscle Ab Hepatitis A IgM Ab Hepatitis A Ab Total Hep Bs Antigen Hep B Core Total Ab Hep B Core IgM Ab Miscellaneous Cytology 06/23/19 06/23/19 06/23/19 17:44 17:44 20:55 WBC RBC Hgb Hct MCV MCH MCHC RDW Std Deviation RDW Coeff of Viviane Plt Count MPV Immature Gran % (Auto) Neut % (Auto) Lymph % (Auto) [place] % (Auto) Eos % (Auto) Baso % (Auto) Absolute Neuts (auto) Absolute Lymphs (auto) Nucleated RBC % Differential Comment Diff Path Review ESR PT INR Sodium Potassium Chloride Carbon Dioxide Anion Gap BUN Creatinine Estim Creat Clear Calc Est GFR (MDRD) Af Amer Est GFR (MDRD) Non-Af BUN/Creatinine Ratio Glucose Hemoglobin A1c 5.1 Calcium Phosphorus 3.4 Magnesium Total Bilirubin Direct Bilirubin AST ALT Alkaline Phosphatase Ammonia Lactate Dehydrogenase 283 H Troponin I C-React Prot Ext Range 38.20 H Total Protein Albumin Globulin Albumin/Globulin Ratio Uzixs-1-Gvxouspjzwz Lipase TSH 1.49 Urine Color Domonique Urine Clarity Clear Urine pH 5.0 Ur Specific [place] 1.025 Urine Protein 15 H Urine Glucose (UA) Normal Urine Ketones 5 H Urine Occult Blood 10 H Urine Nitrite Positive H Urine Bilirubin 3 H Urine Urobilinogen 4 H Ur Leukocyte Esterase 25 H Urine RBC 0-5 SEEN Urine WBC 0-5 SEEN Ur Squamous Epith Cells 0-5 SEEN Urine Bacteria 0 SEEN Hyaline Casts 50-100 SEEN Urine Mucus 0 SEEN Fluid Source Fluid Color Fluid Appearance Fluid pH Fluid WBC Fluid RBC Fluid Tot Cell Count Fld Polynuclear WBCs % Fld Mononuclear WBCs % Fluid Neutrophils Fluid Lymphocytes Fluid Monocytes Fl Pathologist Comment Fluid Glucose Fluid Total Protein Fluid LDH Fluid Amylase Fluid Comment 2 PIPPA Screen JAIDA-1 Antibody SS-A/Ro IgG Antibody SS-B/La IgG Antibody Sm (Woodard) Antibody PHYSICAL MEDICINE SPECIALIST Antibody Scl-70 Scleroderma Ab Double Strand DNA Ab Centromere B Antibody Anti-Mitochondrial Ab Anti-Smooth Muscle Ab Hepatitis A IgM Ab Hepatitis A Ab Total Hep Bs Antigen Hep B Core Total Ab Hep B Core IgM Ab Miscellaneous Cytology 06/24/19 06/24/19 06/24/19 09:34 09:34 09:34 WBC RBC Hgb Hct MCV MCH MCHC RDW Std Deviation RDW Coeff of Viviane Plt Count MPV Immature Gran % (Auto) Neut % (Auto) Lymph % (Auto) [place] % (Auto) Eos % (Auto) Baso % (Auto) Absolute Neuts (auto) Absolute Lymphs (auto) Nucleated RBC % Differential Comment Diff Path Review ESR PT INR Sodium Potassium Chloride Carbon Dioxide Anion Gap BUN Creatinine Estim Creat Clear Calc Est GFR (MDRD) Af Amer Est GFR (MDRD) Non-Af BUN/Creatinine Ratio Glucose Hemoglobin A1c Calcium Phosphorus Magnesium Total Bilirubin Direct Bilirubin AST ALT Alkaline Phosphatase Ammonia Lactate Dehydrogenase Troponin I C-React Prot Ext Range Total Protein Albumin Globulin Albumin/Globulin Ratio Nmelu-8-Pjbhwswzbqt Lipase TSH Urine Color Urine Clarity Urine pH Ur Specific [place] Urine Protein Urine Glucose (UA) Urine Ketones Urine Occult Blood Urine Nitrite Urine Bilirubin Urine Urobilinogen Ur Leukocyte Esterase Urine RBC Urine WBC Ur Squamous Epith Cells Urine Bacteria Hyaline Casts Urine Mucus Fluid Source THORACENTESIS Fluid Color YELLOW Fluid Appearance CLOUDY Fluid pH Pending Fluid WBC 25.220 Fluid RBC 0.003 Fluid Tot Cell Count 25.104 H Fld Polynuclear WBCs % Not Reportable Fld Mononuclear WBCs % Not Reportable Fluid Neutrophils 84 Fluid Lymphocytes 1 Fluid Monocytes 15 Fl Pathologist Comment May follow Fluid Glucose 44 Fluid Total Protein 2.0 Fluid LDH 165 Fluid Amylase Fluid Comment 2 SEE COMMENT PIPPA Screen JAIDA-1 Antibody SS-A/Ro IgG Antibody SS-B/La IgG Antibody Sm (Woodard) Antibody PHYSICAL MEDICINE SPECIALIST Antibody Scl-70 Scleroderma Ab Double Strand DNA Ab Centromere B Antibody Anti-Mitochondrial Ab Anti-Smooth Muscle Ab Hepatitis A IgM Ab Hepatitis A Ab Total Hep Bs Antigen Hep B Core Total Ab Hep B Core IgM Ab Miscellaneous Cytology 06/24/19 06/24/19 06/24/19 09:34 09:34 10:49 WBC RBC Hgb Hct MCV MCH MCHC RDW Std Deviation RDW Coeff of Viviane Plt Count MPV Immature Gran % (Auto) Neut % (Auto) Lymph % (Auto) [place] % (Auto) Eos % (Auto) Baso % (Auto) Absolute Neuts (auto) Absolute Lymphs (auto) Nucleated RBC % Differential Comment Diff Path Review ESR PT INR Sodium Potassium Chloride Carbon Dioxide Anion Gap BUN Creatinine Estim Creat Clear Calc Est GFR (MDRD) Af Amer Est GFR (MDRD) Non-Af BUN/Creatinine Ratio Glucose Hemoglobin A1c Calcium Phosphorus Magnesium Total Bilirubin Direct Bilirubin AST ALT Alkaline Phosphatase Ammonia Lactate Dehydrogenase Troponin I C-React Prot Ext Range Total Protein Albumin Globulin Albumin/Globulin Ratio Rstxo-3-Yzgdfplgqmq Pending Lipase TSH Urine Color Urine Clarity Urine pH Ur Specific [place] Urine Protein Urine Glucose (UA) Urine Ketones Urine Occult Blood Urine Nitrite Urine Bilirubin Urine Urobilinogen Ur Leukocyte Esterase Urine RBC Urine WBC Ur Squamous Epith Cells Urine Bacteria Hyaline Casts Urine Mucus Fluid Source Fluid Color Fluid Appearance Fluid pH Fluid WBC Fluid RBC Fluid Tot Cell Count Fld Polynuclear WBCs % Fld Mononuclear WBCs % Fluid Neutrophils Fluid Lymphocytes Fluid Monocytes Fl Pathologist Comment Fluid Glucose Fluid Total Protein Fluid LDH Fluid Amylase Pending Fluid Comment 2 PIPPA Screen Pending JAIDA-1 Antibody Pending SS-A/Ro IgG Antibody Pending SS-B/La IgG Antibody Pending Sm (Woodard) Antibody Pending PHYSICAL MEDICINE SPECIALIST Antibody Pending Scl-70 Scleroderma Ab Pending Double Strand DNA Ab Pending Centromere B Antibody Pending Anti-Mitochondrial Ab Pending Anti-Smooth Muscle Ab Hepatitis A IgM Ab Hepatitis A Ab Total Hep Bs Antigen Hep B Core Total Ab Hep B Core IgM Ab Miscellaneous Cytology Pending 06/24/19 06/24/19 10:49 10:49 WBC RBC Hgb Hct MCV MCH MCHC RDW Std Deviation RDW Coeff of Viviane Plt Count MPV Immature Gran % (Auto) Neut % (Auto) Lymph % (Auto) [place] % (Auto) Eos % (Auto) Baso % (Auto) Absolute Neuts (auto) Absolute Lymphs (auto) Nucleated RBC % Differential Comment Diff Path Review ESR PT INR Sodium Potassium Chloride Carbon Dioxide Anion Gap BUN Creatinine Estim Creat Clear Calc Est GFR (MDRD) Af Amer Est GFR (MDRD) Non-Af BUN/Creatinine Ratio Glucose Hemoglobin A1c Calcium Phosphorus Magnesium Total Bilirubin Direct Bilirubin AST ALT Alkaline Phosphatase Ammonia Lactate Dehydrogenase 207 Troponin I C-React Prot Ext Range Total Protein 7.0 Albumin Globulin 4.7 H Albumin/Globulin Ratio 0.5 L Aaynz-0-Ojuygfpkzee Lipase TSH Urine Color Urine Clarity Urine pH Ur Specific [place] Urine Protein Urine Glucose (UA) Urine Ketones Urine Occult Blood Urine Nitrite Urine Bilirubin Urine Urobilinogen Ur Leukocyte Esterase Urine RBC Urine WBC Ur Squamous Epith Cells Urine Bacteria Hyaline Casts Urine Mucus Fluid Source Fluid Color Fluid Appearance Fluid pH Fluid WBC Fluid RBC Fluid Tot Cell Count Fld Polynuclear WBCs % Fld Mononuclear WBCs % Fluid Neutrophils Fluid Lymphocytes Fluid Monocytes Fl Pathologist Comment Fluid Glucose Fluid Total Protein Fluid LDH Fluid Amylase Fluid Comment 2 PIPPA Screen JAIDA-1 Antibody SS-A/Ro IgG Antibody SS-B/La IgG Antibody Sm (Woodard) Antibody PHYSICAL MEDICINE SPECIALIST Antibody Scl-70 Scleroderma Ab Double Strand DNA Ab Centromere B Antibody Anti-Mitochondrial Ab Anti-Smooth Muscle Ab Pending Hepatitis A IgM Ab Pending Hepatitis A Ab Total Pending Hep Bs Antigen Pending Hep B Core Total Ab Pending Hep B Core IgM Ab Pending Miscellaneous Cytology Microbiology 06/24/19 09:34 Fluid - Pleural (Lung) Gram Stain - Final Clinical Impression(s) from Imaging Studies Abdomen/Pelvis CT 06/23/19 13:45 IMPRESSION: Large right pleural effusion with compressive atelectasis in the right lung with shift of the heart and mediastinal structures towards the left side of the midline. Findings suggestive of cirrhosis of the liver with nodular contour and decreased size. Splenomegaly. 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 Ascites. Electronically Signed: Dorian Rand, at 15:06 EST , Service support , Chest CT 06/23/19 14:47 IMPRESSION: Large right pleural effusion with compressive atelectasis of the right lung with shift of the heart and mediastinal structures towards the left side of the midline. Ascites with evidence of cirrhosis of the liver and splenomegaly with varices in the splenic hilum. Electronically Signed: Dorian Rand, at 15:09 EST , Service support , Chest X-Ray 06/24/19 10:09 IMPRESSION: Moderate right effusion and right lower lobe consolidation. Left lung is clear. Electronically Signed: Cal Dodson DO at 10:41 EST Tel , Service support , Chest X-Ray 06/25/19 04:45 IMPRESSION: Mild cardiomegaly with no evidence of central vascular congestion. A significant decrease in the right-sided pleural effusion noted in yesterday''s examination. There is a right chest tube in place Electronically Signed: Baljinder Whitehead MD at 5:50 EST Tel , Service support , Current Medications Al Hydroxide/Mg Hydroxide (Mylanta Ii) 30 ml PO Q6H PRN PRN PRN Reason: Gastric Burning Albuterol Sulfate (Ventolin Aerosols) 2.5 mg INHALATION Q2H PRN PRN PRN Reason: SOB/Wheezing Bisacodyl (Dulcolax) 5 mg PO DAILY PRN PRN PRN Reason: Constipation Docusate Sodium (Colace) 100 mg PO BID [facility] Last Admin: 06/24/19 22:20 Dose: Not Given Documented by: Meropenem 1 gm/ Sodium (Chloride) 120 mls @ 33 mls/hr IV Q12 [facility] Last Infusion: 06/25/19 01:45 Dose: Infused Documented by: Magnesium Hydroxide (Milk Of Magnesia) 30 ml PO DAILY PRN PRN PRN Reason: Constipation Morphine Sulfate () 1 mg IV Q4H PRN PRN PRN Reason: Pain Score 6-10/10 Nutritional Formula (Lactose Free) (Ensure Enlive) 120 ml PO 4X/DAY [facility] Last Admin: 06/24/19 22:05 Dose: 120 ml Documented by: Ondansetron HCl (Zofran) 4 mg IV Q8H PRN PRN PRN Reason: NAUSEA/VOMITING Oxycodone HCl (Oxyir) 5 mg PO Q8H PRN PRN PRN Reason: Pain Score 4-5/10 Propranolol HCl (Inderal) 10 mg PO BID [facility] Last Admin: 06/24/19 22:07 Dose: Not Given Documented by: Sodium Chloride () 10 - 40 ml IV UD PRN PRN Reason: SALINE FLUSH Last Admin: 06/24/19 08:42 Dose: 10 ml Documented by: Medical Necessity - Tobacco Use Smoking Status: Never smoker Tobacco Use: Non-smoker Assessment/Plan All Active Problems Pleural effusion, right (Acute) RA (rheumatoid arthritis) (Acute) Hyperglycemia (Acute) RECOMMENDATIONS: 1. Check RF and Anti-CCP Antibodies. 2. Await finalized pleural fluid cultures. Continue empiric antibiotics for now. 3. Await pleural fluid cytology. 4. Wean supplemental oxygen to maintain saturations at or above 90%. 5. Encourage incentive spirometer use. IMPRESSIONS: 1. Acute hypoxemic respiratory insufficiency, presumed secondary to large right pleural effusion The patient was taken to the OR on June 24, where a Pleurx catheter was placed. 3200 cc of pleural fluid was drained immediately following Pleurx catheter placement. The pleural fluid was initially described as being creamy, but appears straw colored in the PleurX tubing this morning. An additional 1.5 L of fluid was removed overnight. Pleural fluid was sent for analysis, based upon orders placed. Per traditional Light's criteria, if at least one of the following three is fulfilled, the fluid would be considered an exudate: 1. Pleural fluid protein/serum protein ratio greater than 0.5 2. Pleural fluid LDH/serum LDH ratio greater than 0.6 3. Pleural fluid LDH greater than two thirds the upper limits of the laboratories normal serum LDH Based upon my review of the patient's pleural fluid analysis, along with serum LDH and total protein levels, the pleural fluid would be considered exudative in nature. In addition, pleural fluid cell count revealed 84% neutrophils along with a glucose of 44. Serum glucose was last reported to be 121. Typically an exudative effusion with low glucose would typically point towards a complicated parapneumonic effusion, empyema, rheumatoid related or that of malignancy. Will await final pleural fluid studies. 2. 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 It is unclear what form of further work-up has been completed recently. We are awaiting outside hospital medical records to arrive for review. 3. Sepsis The patient did present to the hospital with hypotension, tachypnea, altered mental state and elevated white blood cell count. Potential sources of possible infection include the patient's pleural effusion, urinary source or peritoneal fluid infection (SBP). Therefore, the patient was placed this morning empirically on broad-spectrum antimicrobial coverage with meropenem, given that she has a reported penicillin allergy. 4. Acute Kidney Injury Likely related to underlying liver disease. Continue to monitor urine output. No current indication for renal replacement therapy. 5. Questionable history of rheumatoid arthritis/hyperlipidemia Complicates care, management, recovery and prognosis. This note was generated with [employer] software. It may contain incorrect words, spelling, and punctuation that were not noted in checking the note before signing. Code Visit Inpatient E&M: 84386 Subs Hosp L3
[2019-06-25 08:08] LABS: Absolute Lymphocyte Count 0.86 X10^3/uL (0.83-4.51); Absolute Neutrophil Count 12.2 X10^3/uL (2.0-7.7); Basophil# 0.03 X10^3/uL; Basophil% 0.2 % (0-1); Eosinophil# 0.01 X10^3/uL; Eosinophils% 0.1 % (0-5); Hematocrit 39.8 % (37-47); Hemoglobin 12.4 g/dL (12.0-15.0); Lymphocyte # 0.86 X10^3/ul (4.0); Lymphocyte % 5.6 % (19-41); Mean Corp Hgb Conc 31.2 g/dL (32-36); Mean Corpuscular Hgb 32.1 pg (27.0-32.0); Mean Corpuscular Volume 103.1 fL (81-99); Mean Platelet Vol. 10.2 fl (6.2-12.0); Monocyte# 2.17 X10^3/uL; Monocyte% 14.1 % (0-10); NRBC Flagged by Analyzer 0 % (0-5); Neutrophil # 12.19 X10^3/uL (2.7-7.7); Neutrophil % 79.4 % (47-70); POSITIVE DIFFERENTIAL YES; Platelet Count 143 K/mm3 (150-450); RBC Distribution Width CV 14.1 % (11.6-14.6); RBC Distribution Width SD 53.7 fl (35.1-43.9); Red Blood Count 3.86 M/mm3 (4.2-5.4); White Blood Count 15.4 K/mm3 (4.4-11.0)
[2019-06-25 08:12] LABS: Differential Indicated SCAN CRITERIA MET
[2019-06-25 08:30] LABS: ALB/GLOB Ratio 0.4 RATIO (0.9-2.4); AST(SGOT) 32 U/L (15-37); Alanine Aminotransfer ALT/SGPT 24 U/L (13-56); Albumin, Serum 1.9 g/dL (3.2-5.0); Alkaline Phosphatase 123 U/L (45-117); Anion Gap 5 (5-15); BUN 39 mg/dL (7-18); BUN/Creat Ratio 20.6 RATIO (10-20); Calcium,Total 8.4 mg/dL (8.5-10.1); Chloride 104 mmol/L (98-107); Creatinine, Serum 1.89 mg/dL (0.55-1.02); EST Glomerular Filtration Rate 28 mL/min (>60); Est Glom Filt Rate - Afr Amer 33 mL/min (>60); Estimated Creatinine Clearance 22.55 ml/min; Globulin 4.6 g/dL (2.2-4.2); Glucose 117 mg/dL (74-106); Potassium 4.9 mmol/L (3.5-5.1); Protein, Total 6.5 g/dL (6.4-8.2); Rheumatoid Factor < 10.0 IU/mL (<15); Sodium Level 137 mmol/L (136-145)
[2019-06-25 08:40] LABS: Differential Comment SCANNED
--- NOTE | 2019-06-25 09:40 | PN.SURG_ITS ---
Patient Problems: Active and Suspected Problems Pleural effusion, right (Acute) RA (rheumatoid arthritis) (Acute) pt has been told she has RA but, she is not on any medications Hyperglycemia (Acute) Subjective: patient more comfortable, less dyspneic, able to lay flat without shortness of breath - Physical Exam Vitals/I&O's: Vital Signs Temp Pulse Resp BP Pulse Ox 98.5 F 91 18 109/59 L 95 06/25/19 04:15 06/25/19 07:15 06/25/19 04:15 06/25/19 04:15 06/25/19 07:07 Oxygen Flow Rate (L/min) 1.5 Oxygen Delivery Method Nasal Cannula Weight: 65.2 kg Body Mass Index (BMI) 24.4 Orthostatic Vital Signs Start: 06/24/19 03:04 Freq: q24h Status: Active Protocol: Activity Type Activity Date Activity User E-Sign Co-Sign Detail Recorded Client Recorded Date Recorded By Document 06/24/19 03:00 MAB [id number] 06/24/19 03:05 MAB 06/24/19 03:00 Orthostatic Vitals Standing -Blood Pressure (90/60-120/80) 110/50 L -Extremity Use Left Arm -Pulse Rate (60-100) 87 Sitting -Blood Pressure (90/60-120/80) 115/48 L -Extremity Use Left Arm -Pulse Rate (60-100) 86 Lying -Blood Pressure (90/60-120/80) 114/49 L -Extremity Use Left Arm -Pulse Rate (60-100) 82 Intake and Output for Last 24 Hours 06/23/19 06/24/19 06/25/19 23:59 23:59 23:59 Intake Total 1000 / 1240 798.15 / 798.15 77.85 / 77.85 Output Total 1620 / 1620 210 / 210 Balance 1000 / 1170 -821.85 / -821.85 -132.15 / -132.15 General: Alert, Oriented x3, Cooperative Lungs: - - air entry both sides, few coarse breath sounds right base Cardiovascular: Regular rate, Regular Rhythm Abdomen: Bowel Sounds Present, Soft, Distended Microbiology Past 72 Hours 06/24/19 09:34 Fluid - Pleural (Lung) Gram Stain - Final Laboratory Results 06/24/19 09:34: Fluid Glucose 44, Fluid Total Protein 2.0, Fluid LDH 165 06/24/19 09:34: Fluid pH Pending 06/24/19 09:34: Fluid Source THORACENTESIS, Fluid Color YELLOW, Fluid Appearance CLOUDY, Fluid WBC 25.220, Fluid RBC 0.003, Fluid Tot Cell Count 25.104 H, Fld Polynuclear WBCs % Not Reportable, Fld Mononuclear WBCs % Not Reportable, Fluid Neutrophils 84, Fluid Lymphocytes 1, Fluid Monocytes 15, Fl Pathologist Comment May follow, Fluid Comment 2 SEE COMMENT 06/24/19 09:34: Miscellaneous Cytology Pending 06/24/19 09:34: Fluid Amylase Pending 06/24/19 10:49: [id number] Pending, PIPPA Screen Pending, JAIDA-1 Antibody Pending, SS-A/Ro IgG Antibody Pending, SS-B/La IgG Antibody Pending, Sm (Woodard) Antibody Pending, RESIDENTIAL CAREGIVER Antibody Pending, Scl-70 Scleroderma Ab Pending, Double Strand DNA Ab Pending, Centromere B Antibody Pending, Anti-Mitochondrial Ab Pending 06/24/19 10:49: Cycl Citrul Peptide IgG Pending, Anti-Smooth Muscle Ab Pending, Hepatitis A IgM Ab Pending, Hepatitis A Ab Total Pending, Hep Bs Antigen Pending, Hep B Core Total Ab Pending, Hep B Core IgM Ab Pending 06/24/19 10:49: Lactate Dehydrogenase 207, Total Protein 7.0, Globulin 4.7 H, Albumin/Globulin Ratio 0.5 L 06/25/19 07:55: WBC 15.4 H, RBC 3.86 L, Hgb 12.4, Hct 39.8, MCV 103.1 H, MCH 32.1 H, MCHC 31.2 L, RDW Std Deviation 53.7 H, RDW Coeff of Viviane 14.1, Plt Count 143 L, MPV 10.2, Immature Gran % (Auto) 0.600, Neut % (Auto) 79.4 H, Lymph % (Auto) 5.6 L, [place] % (Auto) 14.1 H, Eos % (Auto) 0.1, Baso % (Auto) 0.2, Absolute Neuts (auto) 12.2 H, Absolute Lymphs (auto) 0.86, Nucleated RBC % 0, Differential Comment SCANNED, Diff Path Review May foll 06/25/19 07:55: Sodium 137, Potassium 4.9, Chloride 104, Carbon Dioxide 28.0, Anion Gap 5, BUN 39 H, Creatinine 1.89 H, Estim Creat Clear Calc 22.55, Est GFR (MDRD) Af Amer 33 L, Est GFR (MDRD) Non-Af 28 L, BUN/Creatinine Ratio 20.6 H, Glucose 117 H, Calcium 8.4 L, Total Bilirubin 1.50 H, AST 32, ALT 24, Alkaline Phosphatase 123 H, Total Protein 6.5, Albumin 1.9 L, Globulin 4.6 H, Albumin/Globulin Ratio 0.4 L, Rheumatoid Factor < 10.0 Current Medications Al Hydroxide/Mg Hydroxide (Mylanta Ii) 30 ml PO Q6H PRN PRN PRN Reason: Gastric Burning Albuterol Sulfate (Ventolin Aerosols) 2.5 mg INHALATION Q2H PRN PRN PRN Reason: SOB/Wheezing Bisacodyl (Dulcolax) 5 mg PO DAILY PRN PRN PRN Reason: Constipation Docusate Sodium (Colace) 100 mg PO BID [facility] Last Admin: 06/24/19 22:20 Dose: Not Given Documented by: Meropenem 1 gm/ Sodium (Chloride) 120 mls @ 33 mls/hr IV Q12 [facility] Last Infusion: 06/25/19 01:45 Dose: Infused Documented by: Magnesium Hydroxide (Milk Of Magnesia) 30 ml PO DAILY PRN PRN PRN Reason: Constipation Morphine Sulfate () 1 mg IV Q4H PRN PRN PRN Reason: Pain Score 6-10/10 Nutritional Formula (Lactose Free) (Ensure Enlive) 120 ml PO 4X/DAY [facility] Last Admin: 06/24/19 22:05 Dose: 120 ml Documented by: Ondansetron HCl (Zofran) 4 mg IV Q8H PRN PRN PRN Reason: NAUSEA/VOMITING Oxycodone HCl (Oxyir) 5 mg PO Q8H PRN PRN PRN Reason: Pain Score 4-5/10 Propranolol HCl (Inderal) 10 mg PO BID [facility] Last Admin: 06/24/19 22:07 Dose: Not Given Documented by: Sodium Chloride () 10 - 40 ml IV UD PRN PRN Reason: SALINE FLUSH Last Admin: 06/24/19 08:42 Dose: 10 ml Documented by: Medical Necessity - Tobacco Use Smoking Status: Never smoker Tobacco Use: Non-smoker Assessment/Plan All Active Problems Pleural effusion, right (Acute) RA (rheumatoid arthritis) (Acute) Hyperglycemia (Acute) cirrhosis, massive right pleural effusion with mediastinal shift, ascites, questionable cholangiocarcinoma - postoperative day #1 status post right Pleurx catheter placement The patient is much less dyspneic and is able to lay flat. chest x-ray demonstrates good position of the catheter and good expansion of the lung. Patient is able to cough up some sputum today. Fluid returned as low glucose and elevated white blood cell count-await cytology and culture body fluid panel and cell count. total output from the right chest Pleurx, tube is probably 3-1/2 to 4 L Pleurx catheter will be placed to 20 cm suction and follow-up chest x-rays will be monitored. If minimal output overnight Pleurx catheter. patient with advanced cirrhosis of unknown etiology. suspicion for cholangiocarcinoma at the bifurcation/[place] tumor was raised to [facility]. Other possibility is advanced primary sclerosing cholangitis. would consider repeat MRI/MRCP to assess liver and bile duct area. Patient's bilirubin is elevated but no [place] is elevated as last year. Understood the patient was felt not to be a candidate for TIPS procedure or transplant. Would consider palliative care consultation.
--- NOTE | 2019-06-25 10:23 | PN_ITS ---
Patient Problems: Active and Suspected Problems Pleural effusion, right (Acute) RA (rheumatoid arthritis) (Acute) pt has been told she has RA but, she is not on any medications Hyperglycemia (Acute) Reason for Visit: Follow-up on massive pleural effusion Subjective: She appears confused, unable to answer questions straight. She is tangential in her answers. Denies any complains. Pleurex catheter placed, had more than 1500mls out. Objective: Physical exam: General: Alert, Oriented x3, Cooperative, No apparent distress, Confused, on 1L oxygen HEENT: Atraumatic, PERRLA, EOMI, Normocephalic Oral: Moist Mucosa Neck: Supple, No JVD, Negative Carotid Bruits Lungs: - - Markedly decreased breath sounds in the right upper, mid and lower lung chairez. Cardiovascular: Regular rate, Regular Rhythm, Normal S1, Normal S2, No murmurs Abdomen: - - Abdomen moderately distended, with positive fluid thrill. She had moderate tenderness of the right upper quadrant area in the area of the liver. Extremities: No clubbing, No cyanosis, No edema, Capillary Refill Less than 3 Seconds Skin: No rashes, No breakdown Musculoskeletal: No Tenderness to Palpation of Joints or Extremities Lymphatic: No Cervical, Supraclavicular, or Inguinal Adenopathy Neurological: Cranial nerves II-XII grossly intact Psych/Mental Status: Normal Affect, Appropriate, Alert and oriented to time, place, person, mood and affect Vitals/I&O's: Vital Signs Temp Pulse Resp BP Pulse Ox 98.5 F 91 18 109/59 L 95 06/25/19 04:15 06/25/19 07:15 06/25/19 04:15 06/25/19 04:15 06/25/19 07:07 Oxygen Flow Rate (L/min) 1.5 Oxygen Delivery Method Nasal Cannula Weight: 65.2 kg Body Mass Index (BMI) 24.4 Orthostatic Vital Signs Start: 06/24/19 03:04 Freq: q24h Status: Active Protocol: Activity Type Activity Date Activity User E-Sign Co-Sign Detail Recorded Client Recorded Date Recorded By Document 06/24/19 03:00 MAB [id number] 06/24/19 03:05 MAB 06/24/19 03:00 Orthostatic Vitals Standing -Blood Pressure (90/60-120/80) 110/50 L -Extremity Use Left Arm -Pulse Rate (60-100) 87 Sitting -Blood Pressure (90/60-120/80) 115/48 L -Extremity Use Left Arm -Pulse Rate (60-100) 86 Lying -Blood Pressure (90/60-120/80) 114/49 L -Extremity Use Left Arm -Pulse Rate (60-100) 82 Intake and Output for Last 24 Hours 06/23/19 06/24/19 06/25/19 23:59 23:59 23:59 Intake Total 1000 / 1240 798.15 / 798.15 77.85 / 77.85 Output Total 1620 / 1620 210 / 210 Balance 1000 / 1170 -821.85 / -821.85 -132.15 / -132.15 Microbiology Past 72 Hours 06/24/19 09:34 Fluid - Pleural (Lung) Gram Stain - Final Laboratory Results 06/24/19 09:34: Fluid Glucose 44, Fluid Total Protein 2.0, Fluid LDH 165 06/24/19 09:34: Fluid pH Pending 06/24/19 09:34: Fluid Source THORACENTESIS, Fluid Color YELLOW, Fluid Appearance CLOUDY, Fluid WBC 25.220, Fluid RBC 0.003, Fluid Tot Cell Count 25.104 H, Fld Polynuclear WBCs % Not Reportable, Fld Mononuclear WBCs % Not Reportable, Fluid Neutrophils 84, Fluid Lymphocytes 1, Fluid Monocytes 15, Fl Pathologist Comment May follow, Fluid Comment 2 SEE COMMENT 06/24/19 09:34: Miscellaneous Cytology Pending 06/24/19 09:34: Fluid Amylase Pending 06/24/19 10:49: [id number] Pending, PIPPA Screen Pending, JAIDA-1 Antibody Pending, SS-A/Ro IgG Antibody Pending, SS-B/La IgG Antibody Pending, Sm (Woodard) Antibody Pending, ELIGIBILITY SPECIALIST Antibody Pending, Scl-70 Scleroderma Ab Pending, Double Strand DNA Ab Pending, Centromere B Antibody Pending, Anti-Mitochondrial Ab Pending 06/24/19 10:49: Cycl Citrul Peptide IgG Pending, Anti-Smooth Muscle Ab Pending, Hepatitis A IgM Ab Pending, Hepatitis A Ab Total Pending, Hep Bs Antigen Pending, Hep B Core Total Ab Pending, Hep B Core IgM Ab Pending 06/24/19 10:49: Lactate Dehydrogenase 207, Total Protein 7.0, Globulin 4.7 H, Albumin/Globulin Ratio 0.5 L 06/25/19 07:55: WBC 15.4 H, RBC 3.86 L, Hgb 12.4, Hct 39.8, MCV 103.1 H, MCH 32.1 H, MCHC 31.2 L, RDW Std Deviation 53.7 H, RDW Coeff of Viviane 14.1, Plt Count 143 L, MPV 10.2, Immature Gran % (Auto) 0.600, Neut % (Auto) 79.4 H, Lymph % (Auto) 5.6 L, [place] % (Auto) 14.1 H, Eos % (Auto) 0.1, Baso % (Auto) 0.2, Absolute Neuts (auto) 12.2 H, Absolute Lymphs (auto) 0.86, Nucleated RBC % 0, Differential Comment SCANNED, Diff Path Review November06/25/19 07:55: Sodium 137, Potassium 4.9, Chloride 104, Carbon Dioxide 28.0, Anion Gap 5, BUN 39 H, Creatinine 1.89 H, Estim Creat Clear Calc 22.55, Est GFR (MDRD) Af Amer 33 L, Est GFR (MDRD) Non-Af 28 L, BUN/Creatinine Ratio 20.6 H, Glucose 117 H, Calcium 8.4 L, Total Bilirubin 1.50 H, AST 32, ALT 24, Alkaline Phosphatase 123 H, Total Protein 6.5, Albumin 1.9 L, Globulin 4.6 H, Albumin/Globulin Ratio 0.4 L, Rheumatoid Factor < 10.0 Current Medications Al Hydroxide/Mg Hydroxide (Mylanta Ii) 30 ml PO Q6H PRN PRN PRN Reason: Gastric Burning Albuterol Sulfate (Ventolin Aerosols) 2.5 mg INHALATION Q2H PRN PRN PRN Reason: SOB/Wheezing Bisacodyl (Dulcolax) 5 mg PO DAILY PRN PRN PRN Reason: Constipation Docusate Sodium (Colace) 100 mg PO BID [facility] Last Admin: 06/25/19 09:44 Dose: Not Given Documented by: Meropenem 1 gm/ Sodium (Chloride) 120 mls @ 33 mls/hr IV Q12 [facility] Last Admin: 06/25/19 09:48 Dose: 33 mls/hr Documented by: Magnesium Hydroxide (Milk Of Magnesia) 30 ml PO DAILY PRN PRN PRN Reason: Constipation Morphine Sulfate () 1 mg IV Q4H PRN PRN PRN Reason: Pain Score 6-10/10 Nutritional Formula (Lactose Free) (Ensure Enlive) 120 ml PO 4X/DAY [facility] Last Admin: 06/25/19 09:45 Dose: 120 ml Documented by: Ondansetron HCl (Zofran) 4 mg IV Q8H PRN PRN PRN Reason: NAUSEA/VOMITING Oxycodone HCl (Oxyir) 5 mg PO Q8H PRN PRN PRN Reason: Pain Score 4-5/10 Propranolol HCl (Inderal) 10 mg PO BID [facility] Last Admin: 06/25/19 09:45 Dose: Not Given Documented by: Sodium Chloride () 10 - 40 ml IV UD PRN PRN Reason: SALINE FLUSH Last Admin: 06/24/19 08:42 Dose: 10 ml Documented by: STROKE Vital Signs/Narrative: Vital Signs Pulse Pulse Ox 06/25/19 07:15 91 06/25/19 07:07 95 Medical Necessity - Tobacco Use Smoking Status: Never smoker Tobacco Use: Non-smoker Assessment/Plan All Active Problems Pleural effusion, right (Acute) RA (rheumatoid arthritis) (Acute) Hyperglycemia (Acute) 1. Acute hypoxic respiratory insufficiency secondary to large right pleural effusion, s/p pleurex catheter placement yesterday, improving Currently on 1L of oxygen, will continue to wean off for Spo2>92% 2. Right pleural effusion, unknown etiology for now, s/p pleurex catheter 2D echo shows EF of 65%, stage I diastolic dysfunction, RVSP 52mmHg Pleural fluid test aspirate showed yellow fluid, cloudy, WBC count is 25, ple ural fluid culture is pending Light criteria shows exudative cause, will wait on rest of fluid analysis 3. 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 History of rheumatoid arthritis 5. Hyperlipidemia, diet controlled 6. DVT PPx- Heparin SC Code Visit Inpatient E&M: 23615 Subs Hosp L2
[2019-06-25 13:28] LABS: M R Staph aureus DNA By PCR Negative (Negative); Probe Check PASS; Specimen Processing Control PASS
--- NOTE | 2019-06-25 15:16 | NURSING ---
pt suspicious to staff and accusatory as well. this was change in mentation. texted dr. russo, she ordered amonia level and head CT. the patinet refused. this RN called son, Pino to speak about baseline mentation. Son did verify this is normal behavior. stated she as some bipolar. this RN communicated to dr. russo. she is aware, ordered PRN haldol
[2019-06-25] MEDS: 0.9% Saline Lock 10 ML Syringe IV (16:49)
[2019-06-25] MEDS: Haloperidol Lactate 5 MG/ML Vial 2 MG IV (16:49)
--- NOTE | 2019-06-25 17:38 | NURSING ---
vs taken late due to pt refusing
[2019-06-25] MEDS: 0.9% Normal Saline 1,000 ML 75 ML IV (19:49)
--- NOTE | 2019-06-25 22:31 | NURSING ---
Addendum entered by [employer] 06/25/19 23:58: pt not currently agitated or attempting to harm staff, or self, so did not give prn haldol. Will monitor. Addendum entered by [employer] 06/25/19 23:55: at 2350 nurse in room to check on pt, document output. Pt on cellphone. Pt states she is on cellphone with [employer] attempting to find a ride, so she can leave. Pt does not appear to have full phone number. Left pt in room with cellphone, will continue to monitor, and intervene as necessary. Pt resting, does not appear in distress, continues to refuse any type of VS assessment. SERGE Benjamin Original Note: Pt very suspicious and paranoid about any medications or beverages given to her. Attempted to complete evening VS and medications. Pt refused VS, will not allow this nurse to complete. Discussed all medications ordered for pt tonight, and pt will only allow this nurse to give antibiotic and Ensure. Pt also requested two ensures, given d/t pt refusing one earlier today. Attempted to discuss with pt the importance of VS and medications, pt states ''Oh, don't even try that on me. I know you talk about me'' Pt continues to exhibit paranoid behavior in all interactions, requests that nurse dump certain beverages because ''someone put something in it''. Pt also asked this nurse ''who was behind her'' Assured pt that no one else in room at that time. This is the same behavior pt was exhibiting throughout the day per previous nurse report; MD and family aware. This nurse will continue to monitor and reassure pt. SERGE Benjamin
[2019-06-26] VITALS (8 sets, daily range): BP systolic 109–112; BP diastolic 55–66; PULSE 84–138; RESP 18; TEMP 36.4–36.5; O2SAT 92
--- NOTE | 2019-06-26 01:52 | NURSING ---
0150 attempted to obtain VS and assess pt. Pt continues to refuse all care this nurse attempts to provide. Pt keeping heart monitor on, and IV fluids still running, pt is leaving her PleurX catheter alone and in place. Pt does not appear to be in distress, will continue to monitor. SouravRN
--- NOTE | 2019-06-26 02:54 | NURSING ---
Received phone call from finishing area operator that pt had called [facility] trying to arrange transportation. This nurse entered room and discussed with pt. Advised pt that if she wants transferred this will have to be discussed with the Dr. during dayshift, this will not happen at 0230 in the morning. Also advised pt that she will not be able to arrange transport herself. Pt continues to believe that this nurse is ''playing games'' with her and states she does not trust this nurse. Pt also continues to believe that this nurse is looking and talking to a ''him'' behind her in her room. Attempted to reassure pt that there is no one else in the room with them, and that this nurse would not play games with her, and would only tell her the truth. Pt continues to refuse all attempts at care. SERGE Benjamin
--- NOTE | 2019-06-26 05:21 | NURSING ---
Pt becoming increasingly suspicious and accusatory towards this nurse at this time. Pt continues to refuse any care, and balks at any attempt to take vital signs. Pt not currently trying to get out of bed, not being harmful to staff or to self. Will continue to monitor and attempt to redirect. Sourav, RN
[2019-06-26] MEDS: Haloperidol Lactate 5 MG/ML Vial 2 MG IV (05:52)
--- NOTE | 2019-06-26 07:48 | NURSING ---
Patient refusing to let RN take vitals at this at time. Assessment only partially complete due to patient refusing RN to use stethoscope on her.
--- NOTE | 2019-06-26 09:52 | PN_ITS ---
Patient Problems: Active and Suspected Problems Pleural effusion, right (Acute) RA (rheumatoid arthritis) (Acute) pt has been told she has RA but, she is not on any medications Hyperglycemia (Acute) Subjective: The patient was seen and examined at the bedside this morning. Events from the last 24 hours have been reviewed. The patient is currently afebrile, hemodynamically stable and maintaining appropriate oxygen saturations on room air. The patient is without specific complaints this morning. Objective: The patient's most recent lab work, culture data and imaging studies have all been personally reviewed. Surface echocardiogram revealed normal LV size with an ejection fraction of 65% and stage I diastolic dysfunction. Pulmonary artery systolic pressure was estimated to be [address] abdomen/pelvis revealed a large right-sided pleural effusion with compressive atelectasis and mediastinal shift to the left. The liver was cirrhotic in appearance. Ascites was present. - Physical Exam Vitals/I&O's: Vital Signs Temp Pulse Resp BP Pulse Ox 98.4 F 84 18 102/74 97 06/25/19 17:33 06/26/19 07:00 06/25/19 17:33 06/25/19 17:33 06/25/19 17:33 Oxygen Flow Rate (L/min) 1 Oxygen Delivery Method Room Air Weight: 139 lb 1.787 oz Body Mass Index (BMI) 24.4 Orthostatic Vital Signs Start: 06/24/19 03:04 Freq: q24h Status: Active Protocol: Activity Type Activity Date Activity User E-Sign Co-Sign Detail Recorded Client Recorded Date Recorded By Document 06/24/19 03:00 [facility] [id number] 06/24/19 03:05 MAB 06/24/19 03:00 Orthostatic Vitals Standing -Blood Pressure (90/60-120/80) 110/50 L -Extremity Use Left Arm -Pulse Rate (60-100) 87 Sitting -Blood Pressure (90/60-120/80) 115/48 L -Extremity Use Left Arm -Pulse Rate (60-100) 86 Lying -Blood Pressure (90/60-120/80) 114/49 L -Extremity Use Left Arm -Pulse Rate (60-100) 82 Intake and Output for Last 24 Hours 06/24/19 06/25/19 06/26/19 23:59 23:59 23:59 Intake Total 798.15 / 798.15 1103.15 / 1103.15 882.2 / 882.2 Output Total 1620 / 1620 1060 / 1060 550 / 550 Balance -821.85 / -821.85 43.15 / 43.15 332.2 / 332.2 General: Alert, No apparent distress, Confused HEENT: Atraumatic, PERRLA, Normocephalic Oral: No Gingival or Mucosal Lesions/ Ulcerations Neck: Supple, No Nodes, Trachea Midline Lungs: Diminished, - - Stable Pleurx catheter in place Cardiovascular: Regular rate, Regular Rhythm, Normal S1, Normal S2 Abdomen: Bowel Sounds Present, Soft, Distended Extremities: No clubbing, No cyanosis, No edema Skin: - - No significant change from previous Musculoskeletal: No Tenderness to Palpation of Joints or Extremities Lymphatic: No Cervical, Supraclavicular, or Inguinal Adenopathy Neurological: Neuro grossly intact Psych/Mental Status: Normal Affect Labs (Last 48 Hours) 06/24/19 06/24/19 06/24/19 09:34 09:34 09:34 WBC RBC Hgb Hct MCV MCH MCHC RDW Std Deviation RDW Coeff of Viviane Plt Count MPV Immature Gran % (Auto) Neut % (Auto) Lymph % (Auto) Shasta % (Auto) Eos % (Auto) Baso % (Auto) Absolute Neuts (auto) Absolute Lymphs (auto) Nucleated RBC % Differential Comment Diff Path Review Sodium Potassium Chloride Carbon Dioxide Anion Gap BUN Creatinine Estim Creat Clear Calc Est GFR (MDRD) Af Amer Est GFR (MDRD) Non-Af BUN/Creatinine Ratio Glucose Calcium Total Bilirubin AST ALT Alkaline Phosphatase Lactate Dehydrogenase Total Protein Albumin Globulin Albumin/Globulin Ratio [id number]-[id number] Fluid Source THORACENTESIS Fluid Color YELLOW Fluid Appearance CLOUDY Fluid pH Pending Fluid WBC 25.220 Fluid RBC 0.003 Fluid Tot Cell Count 25.104 H Fld Polynuclear WBCs % Not Reportable Fld Mononuclear WBCs % Not Reportable Fluid Neutrophils 84 Fluid Lymphocytes 1 Fluid Monocytes 15 Fl Pathologist Comment May follow Fluid Glucose 44 Fluid Total Protein 2.0 Fluid LDH 165 Fluid Amylase Fluid Comment 2 SEE COMMENT Rheumatoid Factor Cycl Citrul Peptide IgG PIPPA Screen JAIDA-1 Antibody SS-A/Ro IgG Antibody SS-B/La IgG Antibody Sm (Woodard) Antibody TAKER AWAY Antibody Scl-70 Scleroderma Ab Double Strand DNA Ab Centromere B Antibody Anti-Mitochondrial Ab Anti-Smooth Muscle Ab Hepatitis A IgM Ab Hepatitis A Ab Total Hep Bs Antigen Hep B Core Total Ab Hep B Core IgM Ab MRSA (PCR) Miscellaneous Cytology 06/24/19 06/24/19 06/24/19 09:34 09:34 10:49 WBC RBC Hgb Hct MCV MCH MCHC RDW Std Deviation RDW Coeff of Viviane Plt Count MPV Immature Gran % (Auto) Neut % (Auto) Lymph % (Auto) Shasta % (Auto) Eos % (Auto) Baso % (Auto) Absolute Neuts (auto) Absolute Lymphs (auto) Nucleated RBC % Differential Comment Diff Path Review Sodium Potassium Chloride Carbon Dioxide Anion Gap BUN Creatinine Estim Creat Clear Calc Est GFR (MDRD) Af Amer Est GFR (MDRD) Non-Af BUN/Creatinine Ratio Glucose Calcium Total Bilirubin AST ALT Alkaline Phosphatase Lactate Dehydrogenase Total Protein Albumin Globulin Albumin/Globulin Ratio Ksprl-5-Dliodjfzxrf Pending Fluid Source Fluid Color Fluid Appearance Fluid pH Fluid WBC Fluid RBC Fluid Tot Cell Count Fld Polynuclear WBCs % Fld Mononuclear WBCs % Fluid Neutrophils Fluid Lymphocytes Fluid Monocytes Fl Pathologist Comment Fluid Glucose Fluid Total Protein Fluid LDH Fluid Amylase Pending Fluid Comment 2 Rheumatoid Factor Cycl Citrul Peptide IgG PIPPA Screen Pending JAIDA-1 Antibody Pending SS-A/Ro IgG Antibody Pending SS-B/La IgG Antibody Pending Sm (Woodard) Antibody Pending TAKER AWAY Antibody Pending Scl-70 Scleroderma Ab Pending Double Strand DNA Ab Pending Centromere B Antibody Pending Anti-Mitochondrial Ab Pending Anti-Smooth Muscle Ab Hepatitis A IgM Ab Hepatitis A Ab Total Hep Bs Antigen Hep B Core Total Ab Hep B Core IgM Ab MRSA (PCR) Miscellaneous Cytology Pending 06/24/19 06/24/19 06/25/19 10:49 10:49 07:55 WBC 15.4 H RBC 3.86 L Hgb 12.4 Hct 39.8 MCV 103.1 H MCH 32.1 H MCHC 31.2 L RDW Std Deviation 53.7 H RDW Coeff of Viviane 14.1 Plt Count 143 L MPV 10.2 Immature Gran % (Auto) 0.600 Neut % (Auto) 79.4 H Lymph % (Auto) 5.6 L Shasta % (Auto) 14.1 H Eos % (Auto) 0.1 Baso % (Auto) 0.2 Absolute Neuts (auto) 12.2 H Absolute Lymphs (auto) 0.86 Nucleated RBC % 0 Differential Comment SCANNED Diff Path Review May foll Sodium Potassium Chloride Carbon Dioxide Anion Gap BUN Creatinine Estim Creat Clear Calc Est GFR (MDRD) Af Amer Est GFR (MDRD) Non-Af BUN/Creatinine Ratio Glucose Calcium Total Bilirubin AST ALT Alkaline Phosphatase Lactate Dehydrogenase 207 Total Protein 7.0 Albumin Globulin 4.7 H Albumin/Globulin Ratio 0.5 L Xijux-2-Jafocppgdnd Fluid Source Fluid Color Fluid Appearance Fluid pH Fluid WBC Fluid RBC Fluid Tot Cell Count Fld Polynuclear WBCs % Fld Mononuclear WBCs % Fluid Neutrophils Fluid Lymphocytes Fluid Monocytes Fl Pathologist Comment Fluid Glucose Fluid Total Protein Fluid LDH Fluid Amylase Fluid Comment 2 Rheumatoid Factor Cycl Citrul Peptide IgG Pending PIPPA Screen JAIDA-1 Antibody SS-A/Ro IgG Antibody SS-B/La IgG Antibody Sm (Woodard) Antibody TAKER AWAY Antibody Scl-70 Scleroderma Ab Double Strand DNA Ab Centromere B Antibody Anti-Mitochondrial Ab Anti-Smooth Muscle Ab Pending Hepatitis A IgM Ab Pending Hepatitis A Ab Total Pending Hep Bs Antigen Pending Hep B Core Total Ab Pending Hep B Core IgM Ab Pending MRSA (PCR) Miscellaneous Cytology 06/25/19 06/25/19 07:55 11:42 WBC RBC Hgb Hct MCV MCH MCHC RDW Std Deviation RDW Coeff of Viviane Plt Count MPV Immature Gran % (Auto) Neut % (Auto) Lymph % (Auto) Shasta % (Auto) Eos % (Auto) Baso % (Auto) Absolute Neuts (auto) Absolute Lymphs (auto) Nucleated RBC % Differential Comment Diff Path Review Sodium 137 Potassium 4.9 Chloride 104 Carbon Dioxide 28.0 Anion Gap 5 BUN 39 H Creatinine 1.89 H Estim Creat Clear Calc 22.55 Est GFR (MDRD) Af Amer 33 L Est GFR (MDRD) Non-Af 28 L BUN/Creatinine Ratio 20.6 H Glucose 117 H Calcium 8.4 L Total Bilirubin 1.50 H AST 32 ALT 24 Alkaline Phosphatase 123 H Lactate Dehydrogenase Total Protein 6.5 Albumin 1.9 L Globulin 4.6 H Albumin/Globulin Ratio 0.4 L Sbktq-3-Wicgzkmbfcr Fluid Source Fluid Color Fluid Appearance Fluid pH Fluid WBC Fluid RBC Fluid Tot Cell Count Fld Polynuclear WBCs % Fld Mononuclear WBCs % Fluid Neutrophils Fluid Lymphocytes Fluid Monocytes Fl Pathologist Comment Fluid Glucose Fluid Total Protein Fluid LDH Fluid Amylase Fluid Comment 2 Rheumatoid Factor < 10.0 Cycl Citrul Peptide IgG PIPPA Screen JAIDA-1 Antibody SS-A/Ro IgG Antibody SS-B/La IgG Antibody Sm (Woodard) Antibody TAKER AWAY Antibody Scl-70 Scleroderma Ab Double Strand DNA Ab Centromere B Antibody Anti-Mitochondrial Ab Anti-Smooth Muscle Ab Hepatitis A IgM Ab Hepatitis A Ab Total Hep Bs Antigen Hep B Core Total Ab Hep B Core IgM Ab MRSA (PCR) Negative Miscellaneous Cytology Microbiology 06/24/19 09:34 Fluid - Pleural (Lung) Gram Stain - Final 06/24/19 09:34 Fluid - Pleural (Lung) Body Fluid Culture - Preliminary No growth-Final to follow Clinical Impression(s) from Imaging Studies Abdomen/Pelvis CT 06/23/19 13:45 IMPRESSION: Large right pleural effusion with compressive atelectasis in the right lung with shift of the heart and mediastinal structures towards the left side of the midline. Findings suggestive of cirrhosis of the liver with nodular contour and decreased size. Splenomegaly. 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 Ascites. Electronically Signed: Dorian Rand, at 15:06 EST , Service support , Chest CT 06/23/19 14:47 IMPRESSION: Large right pleural effusion with compressive atelectasis of the right lung with shift of the heart and mediastinal structures towards the left side of the midline. Ascites with evidence of cirrhosis of the liver and splenomegaly with varices in the splenic hilum. Electronically Signed: Dorian Rand, at 15:09 EST , Service support , Chest X-Ray 06/24/19 10:09 IMPRESSION: Moderate right effusion and right lower lobe consolidation. Left lung is clear. Electronically Signed: Cal Dodson DO at 10:41 EST Tel , Service support , Chest X-Ray 06/25/19 04:45 IMPRESSION: Mild cardiomegaly with no evidence of central vascular congestion. A significant decrease in the right-sided pleural effusion noted in yesterday''s examination. There is a right chest tube in place Electronically Signed: Baljinder Whitehead MD at 5:50 EST Tel , Service support , Current Medications Al Hydroxide/Mg Hydroxide (Mylanta Ii) 30 ml PO Q6H PRN PRN PRN Reason: Gastric Burning Albuterol Sulfate (Ventolin Aerosols) 2.5 mg INHALATION Q2H PRN PRN PRN Reason: SOB/Wheezing Bisacodyl (Dulcolax) 5 mg PO DAILY PRN PRN PRN Reason: Constipation Docusate Sodium (Colace) 100 mg PO BID [facility] Last Admin: 06/26/19 09:41 Dose: Not Given Documented by: Haloperidol Lactate (Haldol) 2 mg IV Q6H PRN PRN PRN Reason: AGITATION Last Admin: 06/26/19 05:52 Dose: 2 mg Documented by: Heparin Sodium (Porcine) (Heparin Na) 5,000 unit SC Q8 [facility] Last Admin: 06/26/19 06:00 Dose: Not Given Documented by: Ceftriaxone Sodium 2 gm/ (Sodium Chloride) 50 mls @ 100 mls/hr IV Q24 [facility] Magnesium Hydroxide (Milk Of Magnesia) 30 ml PO DAILY PRN PRN PRN Reason: Constipation Morphine Sulfate () 1 mg IV Q4H PRN PRN PRN Reason: Pain Score 6-10/10 Nutritional Formula (Lactose Free) (Ensure Enlive) 120 ml PO 4X/DAY [facility] Last Admin: 06/26/19 09:41 Dose: 120 ml Documented by: Ondansetron HCl (Zofran) 4 mg IV Q8H PRN PRN PRN Reason: NAUSEA/VOMITING Oxycodone HCl (Oxyir) 5 mg PO Q8H PRN PRN PRN Reason: Pain Score 4-5/10 Propranolol HCl (Inderal) 10 mg PO BID [facility] Last Admin: 06/26/19 09:41 Dose: Not Given Documented by: Sodium Chloride () 10 - 40 ml IV UD PRN PRN Reason: SALINE FLUSH Last Admin: 06/25/19 16:49 Dose: 10 ml Documented by: Medical Necessity - Tobacco Use Smoking Status: Never smoker Tobacco Use: Non-smoker Assessment/Plan All Active Problems Pleural effusion, right (Acute) RA (rheumatoid arthritis) (Acute) Hyperglycemia (Acute) RECOMMENDATIONS: 1. Await final pleural fluid cultures and cytology. 2. Okay to de-escalate to ceftriaxone, pending finalized culture results. 3. Encourage incentive spirometer use. IMPRESSIONS: 1. Acute hypoxemic respiratory insufficiency, presumed secondary to large right pleural effusion The patient was taken to the OR on June 24, where a Pleurx catheter was placed. Pleural fluid was sent for analysis, based upon orders placed. Per traditional Light's criteria, if at least one of the following three is fulfilled, the fluid would be considered an exudate: 1. Pleural fluid protein/serum protein ratio greater than 0.5 2. Pleural fluid LDH/serum LDH ratio greater than 0.6 3. Pleural fluid LDH greater than two thirds the upper limits of the laboratories normal serum LDH Based upon my review of the patient's pleural fluid analysis, along with serum LDH and total protein levels, the pleural fluid would be considered exudative in nature. In addition, pleural fluid cell count revealed 84% neutrophils along with a glucose of 44. Serum glucose was last reported to be 121. Typically an exudative effusion with low glucose would typically point towards a complicated parapneumonic effusion, empyema, rheumatoid related or that of malignancy. Will await final pleural fluid studies, including cultures and cytology. 2. 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 It is unclear what form of further work-up has been completed recently. 3. Sepsis The patient did present to the hospital with hypotension, tachypnea, altered mental state and elevated white blood cell count. Potential sources of possible infection include the patient's pleural effusion, urinary source or peritoneal fluid infection (SBP). Therefore, the patient was placed this morning empirically on broad-spectrum antimicrobial coverage, pending infectious work- up. 4. Acute Kidney Injury Likely related to underlying liver disease. Continue to monitor urine output. No current indication for renal replacement therapy. 5. Questionable history of rheumatoid arthritis/hyperlipidemia Complicates care, management, recovery and prognosis. This note was generated with Stantumation software. It may contain incorrect words, spelling, and punctuation that were not noted in checking the note before signing. Code Visit Inpatient E&M: 22793 Subs Hosp L2
[2019-06-26 12:03] LABS: Pathologist Review Reviewed
[2019-06-26 12:04] LABS: Pathologist Comment/Body Fluid Reviewed
[2019-06-26 12:08] LABS: Pathologist Review Reviewed
--- NOTE | 2019-06-26 12:55 | CASEMGMT ---
SW and physician attempted to call patient's son, however the number is disconnected. SW called [facility] as patient has [facility] and she is newly active with [employer]. Sánchez Donaldson on the coverage line said patient's manager of case is Nuzhatradha Herrera ([phone]). She does not have any services currently as they have not been set up yet. Sánchez said they do not have any contact people listed for patient. According to the notes he read patient would not give out her son's contact information as he is busy. RN has tried to get information from patient about her son, but patient will not share any information. Sendy NUGENT CROSS TIE MAKER
--- NOTE | 2019-06-26 13:26 | CASEMGMT ---
SW called patient's doctor's office, [facility] and obtained the correct phone number for patient's son, Pino ([phone]). SW called patient's son, introduced self and role at [facility]. SW asked him about patient's paranoid behaviors. He said this behavior is normal for her as she has Dementia. BASSEM told him there is concern what we will do with her at d/c as the physician is not comfortable with discharging patient home. He said he would pick her up and someone told him that she could have home health come in and drain the chest tube. BASSEM told him the physician and staff are leaning towards looking at possible psych placement for patient. He said he would do whatever the doctor recommends. BASSEM told him the physician will call him in a little bit and he said that is fine. Sendy NUGENT MSW
--- NOTE | 2019-06-26 14:27 | PCM.PN.HOSP ---
Patient Problems: Active and Suspected Problems Pleural effusion, right (Acute) RA (rheumatoid arthritis) (Acute) pt has been told she has RA but, she is not on any medications Hyperglycemia (Acute) Reason for Visit: Pleural effusion Subjective: Patient was seen and examined. Remains confused, resistant to care, paranoid/suspicious of staff. Right chest tube still draining fluid. Discussed patient in depth with the son. No power of insurance defense attorney for healthcare. Next of kin is his son. Objective: Physical exam: General: Alert, Oriented x3, Cooperative, No apparent distress, Confused, on 1L oxygen HEENT: Atraumatic, PERRLA, EOMI, Normocephalic Oral: Moist Mucosa Neck: Supple, No JVD, Negative Carotid Bruits Lungs: - - Markedly decreased breath sounds in the right upper, mid and lower lung chairez. Cardiovascular: Regular rate, Regular Rhythm, Normal S1, Normal S2, No murmurs Abdomen: - - Abdomen moderately distended, with positive fluid thrill. She had moderate tenderness of the right upper quadrant area in the area of the liver. Extremities: No clubbing, No cyanosis, No edema, Capillary Refill Less than 3 Seconds Skin: No rashes, No breakdown Musculoskeletal: No Tenderness to Palpation of Joints or Extremities Lymphatic: No Cervical, Supraclavicular, or Inguinal Adenopathy Neurological: Cranial nerves II-XII grossly intact Psych/Mental Status: Normal Affect, Appropriate, Alert and oriented to time, place, person, mood and affect Vitals/I&O's: Vital Signs Temp Pulse Resp BP Pulse Ox 98.4 F 84 18 102/74 97 06/25/19 17:33 06/26/19 07:00 06/25/19 17:33 06/25/19 17:33 06/25/19 17:33 Oxygen Flow Rate (L/min) 1 Oxygen Delivery Method Room Air Weight: 63.1 kg Body Mass Index (BMI) 24.4 Orthostatic Vital Signs Start: 06/24/19 03:04 Freq: q24h Status: Active Protocol: Activity Type Activity Date Activity User E-Sign Co-Sign Detail Recorded Client Recorded Date Recorded By Document 06/24/19 03:00 MAB [id number] 06/24/19 03:05 MAB 06/24/19 03:00 Orthostatic Vitals Standing -Blood Pressure (90/60-120/80) 110/50 L -Extremity Use Left Arm -Pulse Rate (60-100) 87 Sitting -Blood Pressure (90/60-120/80) 115/48 L -Extremity Use Left Arm -Pulse Rate (60-100) 86 Lying -Blood Pressure (90/60-120/80) 114/49 L -Extremity Use Left Arm -Pulse Rate (60-100) 82 Intake and Output for Last 24 Hours 06/24/19 06/25/19 06/26/19 23:59 23:59 23:59 Intake Total 798.15 / 798.15 1103.15 / 1103.15 1286.05 / 1286.05 Output Total 1620 / 1620 1060 / 1060 1190 / 1190 Balance -821.85 / -821.85 43.15 / 43.15 96.05 / 96.05 Microbiology Past 72 Hours 06/24/19 09:34 Fluid - Pleural (Lung) Gram Stain - Final 06/24/19 09:34 Fluid - Pleural (Lung) Body Fluid Culture - Preliminary Gram Positive Cocci 06/24/19 09:34 Fluid - Pleural (Lung) Anaerobic Culture - Preliminary Checking for anaerobes, further studies to follow. 06/23/19 20:55 Urine, Catheterized Urine Culture - Preliminary Culture exhibits no growth. Laboratory Results 06/23/19 13:40: Diff Path Review Reviewed 06/24/19 09:34: Fl Pathologist Comment Reviewed 06/25/19 07:55: Diff Path Review Reviewed Current Medications Al Hydroxide/Mg Hydroxide (Mylanta Ii) 30 ml PO Q6H PRN PRN PRN Reason: Gastric Burning Albuterol Sulfate (Ventolin Aerosols) 2.5 mg INHALATION Q2H PRN PRN PRN Reason: SOB/Wheezing Bisacodyl (Dulcolax) 5 mg PO DAILY PRN PRN PRN Reason: Constipation Docusate Sodium (Colace) 100 mg PO BID [facility] Last Admin: 06/26/19 09:41 Dose: Not Given Documented by: Haloperidol Lactate (Haldol) 2 mg IV Q6H PRN PRN PRN Reason: AGITATION Last Admin: 06/26/19 05:52 Dose: 2 mg Documented by: Heparin Sodium (Porcine) (Heparin Na) 5,000 unit SC Q8 [facility] Last Admin: 06/26/19 13:05 Dose: Not Given Documented by: Ceftriaxone Sodium 2 gm/ (Sodium Chloride) 50 mls @ 100 mls/hr IV Q24 [facility] Last Infusion: 06/26/19 13:47 Dose: Infused Documented by: Magnesium Hydroxide (Milk Of Magnesia) 30 ml PO DAILY PRN PRN PRN Reason: Constipation Morphine Sulfate () 1 mg IV Q4H PRN PRN PRN Reason: Pain Score 6-10/10 Nutritional Formula (Lactose Free) (Ensure Enlive) 120 ml PO 4X/DAY [facility] Last Admin: 06/26/19 13:05 Dose: 120 ml Documented by: Ondansetron HCl (Zofran) 4 mg IV Q8H PRN PRN PRN Reason: NAUSEA/VOMITING Oxycodone HCl (Oxyir) 5 mg PO Q8H PRN PRN PRN Reason: Pain Score 4-5/10 Propranolol HCl (Inderal) 10 mg PO BID [facility] Last Admin: 06/26/19 09:41 Dose: Not Given Documented by: Sodium Chloride () 10 - 40 ml IV UD PRN PRN Reason: SALINE FLUSH Last Admin: 06/25/19 16:49 Dose: 10 ml Documented by: Medical Necessity - Tobacco Use Smoking Status: Never smoker Tobacco Use: Non-smoker Assessment/Plan All Active Problems Pleural effusion, right (Acute) RA (rheumatoid arthritis) (Acute) Hyperglycemia (Acute) 1. Acute hypoxic respiratory insufficiency secondary to large right pleural effusion, s/p Pleurx catheter placement yesterday, improving Off oxygen, will continue to wean off for Spo2>92% 2. Right pleural effusion, unknown etiology for now, s/p pleurex catheter Exudative cause per Light criteria. Fluid aspirate is growing gram-positive cocci On IV ceftriaxone, awaiting final culture and sensitivity 3. 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 GARFIELD, Cr elevated yesterday, refuses blood draws, on gentle IVF 5. History of rheumatoid arthritis 6. Hyperlipidemia, diet controlled 7. DVT PPx- Heparin SC 8. Decision making capacity -patient clearly lacks the medical decision-making capacity. She cannot fully comprehend the full extent of her medical problems. She is clearly cannot appreciate the gravity of her medical conditions. She expresses options that are not consistent with standard treatment for this medical condition. She cannot give supporting reasons to support her expressed opinion. She has a reported history of dementia with probable bipolar disorder, not on treatment. All decisions especially with regards to treatment and discharge planning will have to be relied on her son Pino. This was relayed to Pino on phone. food production worker working on discharge planning Discussed hospice/palliative care with the son. He was open to having hospice evaluate patient. Her son lives 1 hour away from the patient. Prefers patient to be in an institution. [facility] to [facility] facility with palliative care or hospice. Code Visit Inpatient E&M: 50505 Subs Hosp L2
--- NOTE | 2019-06-26 14:34 | CHAPLAIN ---
Type of Pastoral Visit _x__ Initial Visit ___ Follow-up Visit ___ On-call Visit ___ General Patient Visit ___ Spiritual Assessment ___ Family Conference ___ Bereavement ___ Rapid Response ___ Code Blue ___ Other (describe below) Pastoral Care Referral From _x__ Patient ___ Family ___ Nurse ___ Physician ___ Theatre Director ___ Church Organist ___ Other (describe below) Sacrament/Intervention _x__ Active listening ___ Anointing ___ Quaker ___ Bereavement ___ Communion ___ Arielle exploration ___ ___ Life review _x__ Prayer ___ Reconciliation ___ Sacrament of Sick _x__ Supportive presence ___ Wedding ___ Other (describe below) Pastoral Comments patient made comments and gave details about her situation that made very little sense; pt was talking and would jump into another thought; patient welcome prayer and presence of this vegetable grower
[2019-06-26] MEDS: 0.9% Normal Saline 1,000 ML 75 ML IV (15:46)
--- NOTE | 2019-06-26 15:53 | EKG12_ITS ---
Test Reason : Blood Pressure : / mmHG Vent. Rate : 146 BPM Atrial Rate : 150 BPM P-R Int : 168 ms QRS Dur : 074 ms QT Int : 262 ms P-R-T Axes : 000 -59 -12 degrees QTc Int : 408 ms Possible Multifocal atrial tachycardia Left anterior fascicular block Anterolateral infarct , age undetermined Abnormal ECG No previous ECGs available Confirmed by MARIO GREEN, VALERIY ([id number]), deputy editor in chief JENNIFER VENTURA ([id number]) on 06/30/2019 10:56:27 AM Referred By: Rosalva Sexton Confirmed By:KEVIN MARTIN MD
[2019-06-26 16:07] LABS: ANTINUCLEAR ANTIBODIES DIRECT Negative (Negative); HEPATITIS B SURFACE AG Negative (Negative); Hepatitis A AB, Total Positive (Negative); Hepatitis A IgM Antibody Negative (Negative); Hepatitis B Core AB IgM Negative (Negative); Hepatitis B Core Ab Total Negative (Negative); Hepatitis C Ab <0.1 s/co ratio (0.0-0.9)
--- NOTE | 2019-06-26 16:32 | CASEMGMT ---
BASSEM spoke with physician and she said she spoke with patient's son about Hospice. He is agreeable to patient going to a facility on Hospice. SW called patient's son and explained how hospice referral works. He asked if patient could go to a facility in [place] as that is where he lives. SW asked if he knows where he would like her to go and he said he does not know as this all happened today. BASSEM told him SW will go to the insurance website and find which facilities are in network. Sendy NUGENT MSW
[2019-06-26] MEDS: Metoprolol Tartrate 5 MG/5 ML Vial 2.5 MG IV (16:59)
[2019-06-27] VITALS (11 sets, daily range): BP systolic 108–124; BP diastolic 50–68; PULSE 67–115; RESP 14–24; TEMP 36.4–36.6; O2SAT 93–98
[2019-06-27 00:28] LABS: pH, Body Fluid 11254 6.6 (Not Estab.)
[2019-06-27 00:31] LABS: Alpha Antitrypsin Serum 193 mg/dL (101-187); Anti-Mitochondrial AB <20.0 Units (0.0-20.0); Anti-Smooth Muscle ABS 81 Units (0-19); Hep B Surface Antibodies Non Reactive (.)
[2019-06-27] MEDS: oxyCODONE 5 MG Tablet PO (01:26)
[2019-06-27] MEDS: 0.9% Saline Lock 10 ML Syringe IV ×2 (01:28→09:13)
--- NOTE | 2019-06-27 02:00 | NURSING ---
Patient complaining of pain at chest tube site, was moved around a lot to start new IV, replace drainage system, and changed sheets. Very anxious about new IV. Was laying on right side all shift patient has refused anything for pain this shift. Patient finally agreed on Oxyir and is resting with eyes closed. Lung sounds clear/diminished, placed on 2L NC of O2 for comfort, chest tube site checked, no crepitus noted, fluid still draining into drainage system.
[2019-06-27 06:19] LABS: Absolute Lymphocyte Count 0.88 X10^3/uL (0.83-4.51); Absolute Neutrophil Count 8.9 X10^3/uL (2.0-7.7); Basophil# 0.03 X10^3/uL; Basophil% 0.3 % (0-1); Eosinophils% 0.9 % (0-5); Hemoglobin 13.3 g/dL (12.0-15.0); Lymphocyte # 0.88 X10^3/ul (4.0); Lymphocyte % 7.6 % (19-41); Mean Corp Hgb Conc 32.4 g/dL (32-36); Mean Corpuscular Hgb 31.8 pg (27.0-32.0); Mean Corpuscular Volume 98.1 fL (81-99); Monocyte% 13.9 % (0-10); NRBC Flagged by Analyzer 0 % (0-5); Neutrophil # 8.87 X10^3/uL (2.7-7.7); Neutrophil % 76.8 % (47-70); POSITIVE DIFFERENTIAL YES; Platelet Count 106 K/mm3 (150-450); RBC Distribution Width SD 50.4 fl (35.1-43.9); Red Blood Count 4.18 M/mm3 (4.2-5.4); White Blood Count 11.5 K/mm3 (4.4-11.0)
[2019-06-27 06:38] LABS: Differential Indicated SCAN CRITERIA MET
[2019-06-27 06:44] LABS: Differential Comment SCANNED
[2019-06-27 07:12] LABS: ALB/GLOB Ratio 0.3 RATIO (0.9-2.4); AST(SGOT) 65 U/L (15-37); Alanine Aminotransfer ALT/SGPT 30 U/L (13-56); Albumin, Serum 1.5 g/dL (3.2-5.0); Alkaline Phosphatase 172 U/L (45-117); Anion Gap 3 (5-15); BUN 43 mg/dL (7-18); BUN/Creat Ratio 48.8 RATIO (10-20); Chloride 107 mmol/L (98-107); Creatinine, Serum 0.88 mg/dL (0.55-1.02); EST Glomerular Filtration Rate 67 mL/min (>60); Est Glom Filt Rate - Afr Amer 81 mL/min (>60); Estimated Creatinine Clearance 48.43 ml/min; Globulin 4.8 g/dL (2.2-4.2); Glucose 137 mg/dL (74-106); Potassium 4.9 mmol/L (3.5-5.1); Protein, Total 6.3 g/dL (6.4-8.2); Sodium Level 140 mmol/L (136-145)
--- NOTE | 2019-06-27 08:13 | PCM.PN.PUL ---
Patient Problems: Active and Suspected Problems Pleural effusion, right (Acute) RA (rheumatoid arthritis) (Acute) pt has been told she has RA but, she is not on any medications Hyperglycemia (Acute) Subjective: The patient was seen and examined at the bedside this morning. Events from the last 24 hours have been reviewed. The patient is currently afebrile, hemodynamically stable and maintaining appropriate oxygen saturations on 2 L/min via nasal cannula. The patient is currently resting comfortably in her bedside recliner. Disposition planning is unclear at this time. Objective: The patient's most recent lab work, culture data and imaging studies have all been personally reviewed. Surface echocardiogram revealed normal LV size with an ejection fraction of 65% and stage I diastolic dysfunction. Pulmonary artery systolic pressure was estimated to be [address] abdomen/pelvis revealed a large right-sided pleural effusion with compressive atelectasis and mediastinal shift to the left. The liver was cirrhotic in appearance. Ascites was present. - Physical Exam Vitals/I&O's: Vital Signs Temp Pulse Resp BP Pulse Ox 97.8 F 92 24 H 120/68 98 06/27/19 04:00 06/27/19 07:00 06/27/19 04:00 06/27/19 04:00 06/27/19 04:00 Oxygen Flow Rate (L/min) 2 Oxygen Delivery Method Nasal Cannula Weight: 138 lb 3.677 oz Body Mass Index (BMI) 24.4 Orthostatic Vital Signs Start: 06/24/19 03:04 Freq: q24h Status: Active Protocol: Activity Type Activity Date Activity User E-Sign Co-Sign Detail Recorded Client Recorded Date Recorded By Document 06/24/19 03:00 [facility] [id number] 06/24/19 03:05 MAB 06/24/19 03:00 Orthostatic Vitals Standing -Blood Pressure (90/60-120/80) 110/50 L -Extremity Use Left Arm -Pulse Rate (60-100) 87 Sitting -Blood Pressure (90/60-120/80) 115/48 L -Extremity Use Left Arm -Pulse Rate (60-100) 86 Lying -Blood Pressure (90/60-120/80) 114/49 L -Extremity Use Left Arm -Pulse Rate (60-100) 82 Intake and Output for Last 24 Hours 06/25/19 06/26/19 06/27/19 23:59 23:59 23:59 Intake Total 1103.15 / 1103.15 2034.80 / 2034.80 1100 / 1100 Output Total 1060 / 1060 1840 / 1840 1150 / 1150 Balance 43.15 / 43.15 194.80 / 194.80 -50 / -50 General: Alert, No apparent distress HEENT: Atraumatic, PERRLA, Normocephalic Oral: No Gingival or Mucosal Lesions/ Ulcerations Neck: Supple, No Nodes, Trachea Midline Lungs: - - Grossly clear to auscultation with stable appearing Pleurx catheter in place Cardiovascular: Regular rate, Regular Rhythm, Normal S1, Normal S2 Abdomen: Bowel Sounds Present, Soft, Distended Extremities: No clubbing, No cyanosis Skin: - - No significant change from previous Musculoskeletal: No Tenderness to Palpation of Joints or Extremities Lymphatic: No Cervical, Supraclavicular, or Inguinal Adenopathy Neurological: Neuro grossly intact Labs (Last 48 Hours) 06/23/19 06/24/19 06/24/19 13:40 09:34 09:34 WBC RBC Hgb Hct MCV MCH MCHC RDW Std Deviation RDW Coeff of Viviane Plt Count MPV Immature Gran % (Auto) Neut % (Auto) Lymph % (Auto) [place] % (Auto) Eos % (Auto) Baso % (Auto) Absolute Neuts (auto) Absolute Lymphs (auto) Nucleated RBC % Differential Comment Diff Path Review Reviewed Sodium Potassium Chloride Carbon Dioxide Anion Gap BUN Creatinine Estim Creat Clear Calc Est GFR (MDRD) Af Amer Est GFR (MDRD) Non-Af BUN/Creatinine Ratio Glucose Calcium Total Bilirubin AST ALT Alkaline Phosphatase Ammonia Total Protein Albumin Globulin Albumin/Globulin Ratio Mwftc-1-Jkiuwomyqwy Fluid pH 6.6 Fl Pathologist Comment Reviewed Rheumatoid Factor Cycl Citrul Peptide IgG PIPPA Screen JAIDA-1 Antibody SS-A/Ro IgG Antibody SS-B/La IgG Antibody Sm (Woodard) Antibody BILINGUAL MEDICAL ASSISTANT Antibody Scl-70 Scleroderma Ab Double Strand DNA Ab Centromere B Antibody Anti-Mitochondrial Ab Anti-Smooth Muscle Ab Hepatitis A IgM Ab Hepatitis A Ab Total Hep Bs Antigen Hep B Core Total Ab Hep B Core IgM Ab Hepatitis C Ab Confirm Hep C Confirm Com 1 MRSA (PCR) 06/24/19 06/24/19 06/25/19 10:49 10:49 07:55 WBC RBC Hgb Hct MCV MCH MCHC RDW Std Deviation RDW Coeff of Viviane Plt Count MPV Immature Gran % (Auto) Neut % (Auto) Lymph % (Auto) [place] % (Auto) Eos % (Auto) Baso % (Auto) Absolute Neuts (auto) Absolute Lymphs (auto) Nucleated RBC % Differential Comment SCANNED Diff Path Review Reviewed Sodium Potassium Chloride Carbon Dioxide Anion Gap BUN Creatinine Estim Creat Clear Calc Est GFR (MDRD) Af Amer Est GFR (MDRD) Non-Af BUN/Creatinine Ratio Glucose Calcium Total Bilirubin AST ALT Alkaline Phosphatase Ammonia Total Protein Albumin Globulin Albumin/Globulin Ratio Xvfge-5-Qhfdxcflrwi 193 H Fluid pH Fl Pathologist Comment Rheumatoid Factor Cycl Citrul Peptide IgG Pending PIPPA Screen Negative JAIDA-1 Antibody TNP SS-A/Ro IgG Antibody TNP SS-B/La IgG Antibody TNP Sm (Woodard) Antibody TNP BILINGUAL MEDICAL ASSISTANT Antibody TNP Scl-70 Scleroderma Ab TNP Double Strand DNA Ab TNP Centromere B Antibody TNP Anti-Mitochondrial Ab <20.0 Anti-Smooth Muscle Ab 81 H Hepatitis A IgM Ab Negative Hepatitis A Ab Total Positive H Hep Bs Antigen Negative Hep B Core Total Ab Negative Hep B Core IgM Ab Negative Hepatitis C Ab Confirm <0.1 Hep C Confirm Com 1 Comment MRSA (PCR) 06/25/19 06/25/19 06/27/19 07:55 11:42 05:50 WBC RBC Hgb Hct MCV MCH MCHC RDW Std Deviation RDW Coeff of Viviane Plt Count MPV Immature Gran % (Auto) Neut % (Auto) Lymph % (Auto) [place] % (Auto) Eos % (Auto) Baso % (Auto) Absolute Neuts (auto) Absolute Lymphs (auto) Nucleated RBC % Differential Comment Diff Path Review Sodium 137 Potassium 4.9 Chloride 104 Carbon Dioxide 28.0 Anion Gap 5 BUN 39 H Creatinine 1.89 H Estim Creat Clear Calc 22.55 Est GFR (MDRD) Af Amer 33 L Est GFR (MDRD) Non-Af 28 L BUN/Creatinine Ratio 20.6 H Glucose 117 H Calcium 8.4 L Total Bilirubin 1.50 H AST 32 ALT 24 Alkaline Phosphatase 123 H Ammonia 28.0 Total Protein 6.5 Albumin 1.9 L Globulin 4.6 H Albumin/Globulin Ratio 0.4 L Wicqi-7-Ymurzpkqrzt Fluid pH Fl Pathologist Comment Rheumatoid Factor < 10.0 Cycl Citrul Peptide IgG PIPPA Screen JAIDA-1 Antibody SS-A/Ro IgG Antibody SS-B/La IgG Antibody Sm (Woodard) Antibody BILINGUAL MEDICAL ASSISTANT Antibody Scl-70 Scleroderma Ab Double Strand DNA Ab Centromere B Antibody Anti-Mitochondrial Ab Anti-Smooth Muscle Ab Hepatitis A IgM Ab Hepatitis A Ab Total Hep Bs Antigen Hep B Core Total Ab Hep B Core IgM Ab Hepatitis C Ab Confirm Hep C Confirm Com 1 MRSA (PCR) Negative 06/27/19 06/27/19 05:50 05:50 WBC 11.5 H RBC 4.18 L Hgb 13.3 Hct 41.0 MCV 98.1 MCH 31.8 MCHC 32.4 RDW Std Deviation 50.4 H RDW Coeff of Viviane 14.0 Plt Count 106 L MPV 10.0 Immature Gran % (Auto) 0.500 Neut % (Auto) 76.8 H Lymph % (Auto) 7.6 L [place] % (Auto) 13.9 H Eos % (Auto) 0.9 Baso % (Auto) 0.3 Absolute Neuts (auto) 8.9 H Absolute Lymphs (auto) 0.88 Nucleated RBC % 0 Differential Comment SCANNED Diff Path Review May foll Sodium 140 Potassium 4.9 Chloride 107 Carbon Dioxide 30.0 Anion Gap 3 L BUN 43 H Creatinine 0.88 Estim Creat Clear Calc 48.43 Est GFR (MDRD) Af Amer 81 Est GFR (MDRD) Non-Af 67 BUN/Creatinine Ratio 48.8 H Glucose 137 H Calcium 8.0 L Total Bilirubin 1.00 AST 65 H ALT 30 Alkaline Phosphatase 172 H Ammonia Total Protein 6.3 L Albumin 1.5 L Globulin 4.8 H Albumin/Globulin Ratio 0.3 L Qxpmw-6-Wqmsjoxgzkc Fluid pH Fl Pathologist Comment Rheumatoid Factor Cycl Citrul Peptide IgG PIPPA Screen JAIDA-1 Antibody SS-A/Ro IgG Antibody SS-B/La IgG Antibody Sm (Woodard) Antibody BILINGUAL MEDICAL ASSISTANT Antibody Scl-70 Scleroderma Ab Double Strand DNA Ab Centromere B Antibody Anti-Mitochondrial Ab Anti-Smooth Muscle Ab Hepatitis A IgM Ab Hepatitis A Ab Total Hep Bs Antigen Hep B Core Total Ab Hep B Core IgM Ab Hepatitis C Ab Confirm Hep C Confirm Com 1 MRSA (PCR) Microbiology 06/24/19 09:34 Fluid - Pleural (Lung) Gram Stain - Final 06/24/19 09:34 Fluid - Pleural (Lung) Body Fluid Culture - Preliminary Gram Positive Cocci 06/24/19 09:34 Fluid - Pleural (Lung) Anaerobic Culture - Preliminary Checking for anaerobes, further studies to follow. 06/23/19 20:55 Urine, Catheterized Urine Culture - Preliminary Culture exhibits no growth. Clinical Impression(s) from Imaging Studies Abdomen/Pelvis CT 06/23/19 13:45 IMPRESSION: Large right pleural effusion with compressive atelectasis in the right lung with shift of the heart and mediastinal structures towards the left side of the midline. Findings suggestive of cirrhosis of the liver with nodular contour and decreased size. Splenomegaly. 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 Ascites. Electronically Signed: Dorian Rand, at 15:06 EST , Service support , Chest CT 06/23/19 14:47 IMPRESSION: Large right pleural effusion with compressive atelectasis of the right lung with shift of the heart and mediastinal structures towards the left side of the midline. Ascites with evidence of cirrhosis of the liver and splenomegaly with varices in the splenic hilum. Electronically Signed: Dorian Rand, at 15:09 EST , Service support , Chest X-Ray 06/24/19 10:09 IMPRESSION: Moderate right effusion and right lower lobe consolidation. Left lung is clear. Electronically Signed: Cal Dodson DO at 10:41 EST Tel , Service support , Chest X-Ray 06/25/19 04:45 IMPRESSION: Mild cardiomegaly with no evidence of central vascular congestion. A significant decrease in the right-sided pleural effusion noted in yesterday''s examination. There is a right chest tube in place Electronically Signed: Baljinder Whitehead MD at 5:50 EST Tel , Service support , Current Medications Al Hydroxide/Mg Hydroxide (Mylanta Ii) 30 ml PO Q6H PRN PRN PRN Reason: Gastric Burning Bisacodyl (Dulcolax) 5 mg PO DAILY PRN PRN PRN Reason: Constipation Docusate Sodium (Colace) 100 mg PO BID [facility] Last Admin: 06/26/19 22:39 Dose: Not Given Documented by: Haloperidol Lactate (Haldol) 2 mg IV Q6H PRN PRN PRN Reason: AGITATION Last Admin: 06/26/19 05:52 Dose: 2 mg Documented by: Heparin Sodium (Porcine) (Heparin Na) 5,000 unit SC Q8 [facility] Last Admin: 06/27/19 05:09 Dose: Not Given Documented by: Ceftriaxone Sodium 2 gm/ (Sodium Chloride) 50 mls @ 100 mls/hr IV Q24 [facility] Last Infusion: 06/26/19 13:47 Dose: Infused Documented by: Magnesium Hydroxide (Milk Of Magnesia) 30 ml PO DAILY PRN PRN PRN Reason: Constipation Metoprolol Tartrate (Lopressor (Beta Chaz)) 2.5 mg IV Q6H PRN PRN PRN Reason: tachycardia Last Admin: 06/26/19 16:59 Dose: 2.5 mg Documented by: Morphine Sulfate () 1 mg IV Q4H PRN PRN PRN Reason: Pain Score 6-10/10 Nutritional Formula (Lactose Free) (Ensure Enlive) 120 ml PO 4X/DAY [facility] Last Admin: 06/26/19 22:39 Dose: 120 ml Documented by: Ondansetron HCl (Zofran) 4 mg IV Q8H PRN PRN PRN Reason: NAUSEA/VOMITING Oxycodone HCl (Oxyir) 5 mg PO Q8H PRN PRN PRN Reason: Pain Score 4-5/10 Last Admin: 06/27/19 01:26 Dose: 5 mg Documented by: Propranolol HCl (Inderal) 20 mg PO BID [facility] Last Admin: 06/26/19 22:40 Dose: Not Given Documented by: Sodium Chloride () 10 - 40 ml IV UD PRN PRN Reason: SALINE FLUSH Last Admin: 06/27/19 01:28 Dose: 10 ml Documented by: Medical Necessity - Tobacco Use Smoking Status: Never smoker Tobacco Use: Non-smoker Assessment/Plan All Active Problems Pleural effusion, right (Acute) RA (rheumatoid arthritis) (Acute) Hyperglycemia (Acute) RECOMMENDATIONS: 1. Await final pleural fluid cultures and cytology. 2. Continue ceftriaxone, pending finalized culture results. 3. Encourage incentive spirometer use. IMPRESSIONS: 1. Acute hypoxemic respiratory insufficiency, presumed secondary to large right pleural effusion The patient was taken to the OR on June 24, where a Pleurx catheter was placed. Pleural fluid was sent for analysis, based upon orders placed. Per traditional Light's criteria, if at least one of the following three is fulfilled, the fluid would be considered an exudate: 1. Pleural fluid protein/serum protein ratio greater than 0.5 2. Pleural fluid LDH/serum LDH ratio greater than 0.6 3. Pleural fluid LDH greater than two thirds the upper limits of the laboratories normal serum LDH Based upon my review of the patient's pleural fluid analysis, along with serum LDH and total protein levels, the pleural fluid would be considered exudative in nature. In addition, pleural fluid cell count revealed 84% neutrophils along with a glucose of 44. Serum glucose was last reported to be 121. Typically an exudative effusion with low glucose would typically point towards a complicated parapneumonic effusion, empyema, rheumatoid related or that of malignancy. Will await final pleural fluid studies, including cultures and cytology. 2. 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 It is unclear what form of further work-up has been completed recently. 3. Sepsis The patient did present to the hospital with hypotension, tachypnea, altered mental state and elevated white blood cell count. Potential sources of possible infection include the patient's pleural effusion, urinary source or peritoneal fluid infection (SBP). Therefore, the patient was placed this morning empirically on antimicrobial coverage, pending infectious work-up. 4. Acute Kidney Injury Resolved. Likely related to underlying liver disease. Continue to monitor urine output. No current indication for renal replacement therapy. 5. Questionable history of rheumatoid arthritis/hyperlipidemia Complicates care, management, recovery and prognosis. This note was generated with [employer] software. It may contain incorrect words, spelling, and punctuation that were not noted in checking the note before signing. Code Visit Inpatient E&M: 03107 Subs Hosp L2
--- NOTE | 2019-06-27 08:50 | CASEMGMT ---
BASSEM called patient's son this am and went over some of the in network facilities in [place]. He and his wanted to talk about it and will get back with BASSEM. SW gave them BASSEM's direct number. They did ask about [facility]. BASSEM explained BASSEM does not feel patient would likely qualify for inpatient hospice unit as it is for patients that are imminent or need a lot of symptom management. He verbalized understanding. Await return call from patient's son. Sendy NUGENT MSW
[2019-06-27] MEDS: Docusate Sodium 100 MG Capsule PO ×2 (09:04→22:04)
[2019-06-27] MEDS: Propranolol 10 MG Tablet 20 MG PO ×2 (09:05→22:04)
--- NOTE | 2019-06-27 10:33 | CASEMGMT ---
Social Work Consult: Mini-Mental Exam Met with patient in room. Introduced self as well as social work instructor role. Patient agreeable to meeting with this social work instructor. Completed Mini-Mental. Patient with a . Patient stated Wednesday for the day of the week and was unsure of what hospital floor patient is currently on. Patient pleasant with this social work instructor and responding to questions. Active listening and support provided. Patient stating to have no health care power of commuter pilot and to be able to make own decisions. Km Jimenez MSW, JOVANNA
--- NOTE | 2019-06-27 11:10 | CASEMGMT ---
SW received a call from patient's son and he said their first choice would be [facility] and second would be [facility]. SW told him SW will work on this. SW spoke with physician and she spoke with patient again this am and patient is still confused with her. She did say patient is in agreement with going to a long term and she was yesterday as well. SW called both [facility] and [facility] with referral. SW also faxed referral to both facilities. Await responses. Patient will also require insurance authorization. BASSEM also spoke with physician and it was determined that patient can go skilled to the long term and they can assess for Palliative or Hospice. Sendy NUGENT MSW
--- NOTE | 2019-06-27 12:32 | PN.SURG_ITS ---
Patient Problems: Active and Suspected Problems Pleural effusion, right (Acute) RA (rheumatoid arthritis) (Acute) pt has been told she has RA but, she is not on any medications Hyperglycemia (Acute) Subjective: patient sleeping - Physical Exam Vitals/I&O's: Vital Signs Temp Pulse Resp BP Pulse Ox 97.8 F 115 H 14 120/61 95 06/27/19 09:50 06/27/19 09:50 06/27/19 09:50 06/27/19 09:50 06/27/19 09:50 Oxygen Flow Rate (L/min) 2 Oxygen Delivery Method Room Air Weight: 62.7 kg Body Mass Index (BMI) 24.4 Orthostatic Vital Signs Start: 06/24/19 03:04 Freq: q24h Status: Active Protocol: Activity Type Activity Date Activity User E-Sign Co-Sign Detail Recorded Client Recorded Date Recorded By Document 06/24/19 03:00 MAB [id number] 06/24/19 03:05 MAB 06/24/19 03:00 Orthostatic Vitals Standing -Blood Pressure (90/60-120/80) 110/50 L -Extremity Use Left Arm -Pulse Rate (60-100) 87 Sitting -Blood Pressure (90/60-120/80) 115/48 L -Extremity Use Left Arm -Pulse Rate (60-100) 86 Lying -Blood Pressure (90/60-120/80) 114/49 L -Extremity Use Left Arm -Pulse Rate (60-100) 82 Intake and Output for Last 24 Hours 06/25/19 06/26/19 06/27/19 23:59 23:59 23:59 Intake Total 1103.15 / 1103.15 2034.80 / 2034.80 1630 / 1630 Output Total 1060 / 1060 1840 / 1840 206 / 2059 Balance 43.15 / 43.15 194.80 / 194.80 -430 / -430 Lungs: - - chest tube output serous-no longer cloudy-total output overnight since Pleur-evac changed- 1000 cc Microbiology Past 72 Hours 06/23/19 20:55 Urine, Catheterized Urine Culture - Preliminary Mixed Gram Positive Organisms 06/24/19 09:34 Fluid - Pleural (Lung) Gram Stain - Final 06/24/19 09:34 Fluid - Pleural (Lung) Body Fluid Culture - Preliminary Gram Positive Cocci 06/24/19 09:34 Fluid - Pleural (Lung) Anaerobic Culture - Preliminary Checking for anaerobes, further studies to follow. Laboratory Results 06/24/19 09:34: Fluid pH 6.6 06/24/19 09:34: Miscellaneous Cytology SEE PATHOLOGY REPORT 06/24/19 10:49: Lxuvu-5-Umelmlpmsgi 193 H, PIPPA Screen Negative, JAIDA-1 Antibody TNP, SS-A/Ro IgG Antibody TNP, SS-B/La IgG Antibody TNP, Sm (Woodard) Antibody TNP, COMMERCIAL ASSISTANT Antibody TNP, Scl-70 Scleroderma Ab TNP, Double Strand DNA Ab TNP, Centromere B Antibody TNP, Anti-Mitochondrial Ab <20.0 06/24/19 10:49: Cycl Citrul Peptide IgG Pending, Anti-Smooth Muscle Ab 81 H, Hepatitis A IgM Ab Negative, Hepatitis A Ab Total Positive H, Hep Bs Antigen Negative, Hep B Core Total Ab Negative, Hep B Core IgM Ab Negative, Hepatitis C Ab Confirm <0.1, Hep C Confirm Com 1 Comment 06/27/19 05:50: Ammonia 28.0 06/27/19 05:50: WBC 11.5 H, RBC 4.18 L, Hgb 13.3, Hct 41.0, MCV 98.1, MCH 31.8, MCHC 32.4, RDW Std Deviation 50.4 H, RDW Coeff of Viviane 14.0, Plt Count 106 L, MPV 10.0, Immature Gran % (Auto) 0.500, Neut % (Auto) 76.8 H, Lymph % (Auto) 7.6 L, [place] % (Auto) 13.9 H, Eos % (Auto) 0.9, Baso % (Auto) 0.3, Absolute Neuts (auto) 8.9 H, Absolute Lymphs (auto) 0.88, Nucleated RBC % 0, Differential Comment SCANNED, Diff Path Review November foll 06/27/19 05:50: Sodium 140, Potassium 4.9, Chloride 107, Carbon Dioxide 30.0, A nion Gap 3 L, BUN 43 H, Creatinine 0.88, Estim Creat Clear Calc 48.43, Est GFR (MDRD) Af Amer 81, Est GFR (MDRD) Non-Af 67, BUN/Creatinine Ratio 48.8 H, Glucose 137 H, Calcium 8.0 L, Total Bilirubin 1.00, AST 65 H, ALT 30, Alkaline Phosphatase 172 H, Total Protein 6.3 L, Albumin 1.5 L, Globulin 4.8 H, Albumin/Globulin Ratio 0.3 L Current Medications Al Hydroxide/Mg Hydroxide (Mylanta Ii) 30 ml PO Q6H PRN PRN PRN Reason: Gastric Burning Bisacodyl (Dulcolax) 5 mg PO DAILY PRN PRN PRN Reason: Constipation Docusate Sodium (Colace) 100 mg PO BID [facility] Last Admin: 06/27/19 09:04 Dose: 100 mg Documented by: Haloperidol Lactate (Haldol) 2 mg IV Q6H PRN PRN PRN Reason: AGITATION Last Admin: 06/26/19 05:52 Dose: 2 mg Documented by: Heparin Sodium (Porcine) (Heparin Na) 5,000 unit SC Q8 [facility] Last Admin: 06/27/19 05:09 Dose: Not Given Documented by: Ceftriaxone Sodium 2 gm/ (Sodium Chloride) 50 mls @ 100 mls/hr IV Q24 [facility] Last Infusion: 06/27/19 10:18 Dose: Infused Documented by: Magnesium Hydroxide (Milk Of Magnesia) 30 ml PO DAILY PRN PRN PRN Reason: Constipation Metoprolol Tartrate (Lopressor (Beta Chaz)) 2.5 mg IV Q6H PRN PRN PRN Reason: tachycardia Last Admin: 06/26/19 16:59 Dose: 2.5 mg Documented by: Morphine Sulfate () 1 mg IV Q4H PRN PRN PRN Reason: Pain Score 6-10/10 Nutritional Formula (Lactose Free) (Ensure Enlive) 120 ml PO 4X/DAY [facility] Last Admin: 06/27/19 09:04 Dose: 120 ml Documented by: Ondansetron HCl (Zofran) 4 mg IV Q8H PRN PRN PRN Reason: NAUSEA/VOMITING Oxycodone HCl (Oxyir) 5 mg PO Q8H PRN PRN PRN Reason: Pain Score 4-5/10 Last Admin: 06/27/19 01:26 Dose: 5 mg Documented by: Propranolol HCl (Inderal) 20 mg PO BID [facility] Last Admin: 06/27/19 09:05 Dose: 20 mg Documented by: Sodium Chloride () 10 - 40 ml IV UD PRN PRN Reason: SALINE FLUSH Last Admin: 06/27/19 09:13 Dose: 10 ml Documented by: Medical Necessity - Tobacco Use Smoking Status: Never smoker Tobacco Use: Non-smoker Assessment/Plan All Active Problems Pleural effusion, right (Acute) RA (rheumatoid arthritis) (Acute) Hyperglycemia (Acute) cirrhosis, massive right pleural effusion with mediastinal shift, ascites, ques tionable cholangiocarcinoma - postoperative day #1 status post right Pleurx catheter placement The patient is much less dyspneic and is able to lay flat. chest x-ray demonstrates good position of the catheter and good expansion of the lung. Patient is able to cough up some sputum today. Fluid returned as low glucose and elevated white blood cell count-cytology was negative for malignant cells consistent with inflammation. Culture demonstrates few gram-positive cocci. Pleurx catheter will be placed to 20 cm suction and follow-up chest x-rays will be monitored. given output volume-we will maintain on Pleur-evac drainage patient with advanced cirrhosis of unknown etiology. suspicion for cholangiocarcinoma at the bifurcation/[place] tumor was raised to [facility]. Other possibility is advanced primary sclerosing cholangitis. in any event, the patient has advanced cirrhosis by imaging and was felt to be not a candidate for TIPS or transplant. For the last 2 days, the patient's been refusingfurther imaging or even vitals and examination. Repeat MRI/MRCP to assess liver and bile duct might help delineate a primary diagnosis but would certainly not change her cirrhosis and prognosis. Would consider palliative care consultation.
--- NOTE | 2019-06-27 21:52 | PCM.PN.HOSP ---
Patient Problems: Active and Suspected Problems Pleural effusion, right (Acute) RA (rheumatoid arthritis) (Acute) pt has been told she has RA but, she is not on any medications Hyperglycemia (Acute) Reason for Visit: Follow-up on Pleural effusion Subjective: Patient was seen and examined. She is less agitated. Still remains confused Objective: Physical exam: General: Alert, Oriented x3, Cooperative, No apparent distress, Confused HEENT: Atraumatic, PERRLA, EOMI, Normocephalic Oral: Moist Mucosa Neck: Supple, No JVD, Negative Carotid Bruits Lungs: - - Markedly decreased breath sounds in the right upper, mid and lower lung chairez, crackles present Cardiovascular: Regular rate, Regular Rhythm, Normal S1, Normal S2, No murmurs Abdomen: - - Abdomen moderately distended, with positive fluid thrill. She had moderate tenderness of the right upper quadrant area in the area of the liver. Extremities: No clubbing, No cyanosis, No edema, Capillary Refill Less than 3 Seconds Skin: No rashes, No breakdown Musculoskeletal: No Tenderness to Palpation of Joints or Extremities Lymphatic: No Cervical, Supraclavicular, or Inguinal Adenopathy Neurological: Cranial nerves II-XII grossly intact Psych/Mental Status: Normal Affect, Appropriate, Alert and oriented to time, place, person, mood and affect Vitals/I&O's: Vital Signs Temp Pulse Resp BP Pulse Ox 97.9 F 67 16 108/50 L 97 06/27/19 15:47 06/27/19 15:47 06/27/19 15:47 06/27/19 15:47 06/27/19 15:47 Oxygen Flow Rate (L/min) 2 Oxygen Delivery Method Room Air Weight: 62.7 kg Body Mass Index (BMI) 24.4 Orthostatic Vital Signs Start: 06/24/19 03:04 Freq: q24h Status: Active Protocol: Activity Type Activity Date Activity User E-Sign Co-Sign Detail Recorded Client Recorded Date Recorded By Document 06/24/19 03:00 [facility] [id number] 06/24/19 03:05 MAB 06/24/19 03:00 Orthostatic Vitals Standing -Blood Pressure (90/60-120/80) 110/50 L -Extremity Use Left Arm -Pulse Rate (60-100) 87 Sitting -Blood Pressure (90/60-120/80) 115/48 L -Extremity Use Left Arm -Pulse Rate (60-100) 86 Lying -Blood Pressure (90/60-120/80) 114/49 L -Extremity Use Left Arm -Pulse Rate (60-100) 82 Intake and Output for Last 24 Hours 06/25/19 06/26/19 06/27/19 23:59 23:59 23:59 Intake Total 1103.15 / 1103.15 2034.80 / 2034.80 1880 / 1880 Output Total 1060 / 1060 1840 / 1840 3030 / 3030 Balance 43.15 / 43.15 194.80 / 194.80 -1150 / -1150 Microbiology Past 72 Hours 06/23/19 20:55 Urine, Catheterized Urine Culture - Preliminary Mixed Gram Positive Organisms 06/24/19 09:34 Fluid - Pleural (Lung) Gram Stain - Final 06/24/19 09:34 Fluid - Pleural (Lung) Body Fluid Culture - Preliminary Gram Positive Cocci 06/24/19 09:34 Fluid - Pleural (Lung) Anaerobic Culture - Preliminary Checking for anaerobes, further studies to follow. Laboratory Results 06/24/19 09:34: Fluid pH 6.6 06/24/19 09:34: Miscellaneous Cytology SEE PATHOLOGY REPORT 06/24/19 10:49: [id number]-3-Ndifubpebil 193 H, PIPPA Screen Negative, JAIDA-1 Antibody TNP, SS-A/Ro IgG Antibody TNP, SS-B/La IgG Antibody TNP, Sm (Woodard) Antibody TNP, [employer]OR Antibody TNP, Scl-70 Scleroderma Ab TNP, Double Strand DNA Ab TNP, Centromere B Antibody TNP, Anti-Mitochondrial Ab <20.0 06/24/19 10:49: Cycl Citrul Peptide IgG Pending, Anti-Smooth Muscle Ab 81 H, Hepatitis A IgM Ab Negative, Hepatitis A Ab Total Positive H, Hep Bs Antigen Negative, Hep B Core Total Ab Negative, Hep B Core IgM Ab Negative, Hepatitis C Ab Confirm <0.1, Hep C Confirm Com 1 Comment 06/27/19 05:50: Ammonia 28.0 06/27/19 05:50: WBC 11.5 H, RBC 4.18 L, Hgb 13.3, Hct 41.0, MCV 98.1, MCH 31.8, MCHC 32.4, RDW Std Deviation 50.4 H, RDW Coeff of Viviane 14.0, Plt Count 106 L, MPV 10.0, Immature Gran % (Auto) 0.500, Neut % (Auto) 76.8 H, Lymph % (Auto) 7.6 L, Chambers % (Auto) 13.9 H, Eos % (Auto) 0.9, Baso % (Auto) 0.3, Absolute Neuts (auto) 8.9 H, Absolute Lymphs (auto) 0.88, Nucleated RBC % 0, Differential Comment SCANNED, Diff Path Review November [facility] 06/27/19 05:50: Sodium 140, Potassium 4.9, Chloride 107, Carbon Dioxide 30.0, Anion Gap 3 L, BUN 43 H, Creatinine 0.88, Estim Creat Clear Calc 48.43, Est GFR (MDRD) Af Amer 81, Est GFR (MDRD) Non-Af 67, BUN/Creatinine Ratio 48.8 H, Glucose 137 H, Calcium 8.0 L, Total Bilirubin 1.00, AST 65 H, ALT 30, Alkaline Phosphatase 172 H, Total Protein 6.3 L, Albumin 1.5 L, Globulin 4.8 H, Albumin/Globulin Ratio 0.3 L Current Medications Al Hydroxide/Mg Hydroxide (Mylanta Ii) 30 ml PO Q6H PRN PRN PRN Reason: Gastric Burning Bisacodyl (Dulcolax) 5 mg PO DAILY PRN PRN PRN Reason: Constipation Docusate Sodium (Colace) 100 mg PO BID [facility] Last Admin: 06/27/19 09:04 Dose: 100 mg Documented by: Haloperidol Lactate (Haldol) 2 mg IV Q6H PRN PRN PRN Reason: AGITATION Last Admin: 06/26/19 05:52 Dose: 2 mg Documented by: Heparin Sodium (Porcine) (Heparin Na) 5,000 unit SC Q8 [facility] Last Admin: 06/27/19 13:02 Dose: Not Given Documented by: Ceftriaxone Sodium 2 gm/ (Sodium Chloride) 50 mls @ 100 mls/hr IV Q24 [facility] Last Infusion: 06/27/19 10:18 Dose: Infused Documented by: Magnesium Hydroxide (Milk Of Magnesia) 30 ml PO DAILY PRN PRN PRN Reason: Constipation Metoprolol Tartrate (Lopressor (Beta Chaz)) 2.5 mg IV Q6H PRN PRN PRN Reason: tachycardia Last Admin: 06/26/19 16:59 Dose: 2.5 mg Documented by: Morphine Sulfate () 1 mg IV Q4H PRN PRN PRN Reason: Pain Score 6-10/10 Nutritional Formula (Lactose Free) (Ensure Enlive) 120 ml PO 4X/DAY [facility] Last Admin: 06/27/19 17:08 Dose: Not Given Documented by: Ondansetron HCl (Zofran) 4 mg IV Q8H PRN PRN PRN Reason: NAUSEA/VOMITING Oxycodone HCl (Oxyir) 5 mg PO Q8H PRN PRN PRN Reason: Pain Score 4-5/10 Last Admin: 06/27/19 01:26 Dose: 5 mg Documented by: Propranolol HCl (Inderal) 20 mg PO BID [facility] Last Admin: 06/27/19 09:05 Dose: 20 mg Documented by: Sodium Chloride () 10 - 40 ml IV UD PRN PRN Reason: SALINE FLUSH Last Admin: 06/27/19 09:13 Dose: 10 ml Documented by: Medical Necessity - Tobacco Use Smoking Status: Never smoker Tobacco Use: Non-smoker Assessment/Plan All Active Problems Pleural effusion, right (Acute) RA (rheumatoid arthritis) (Acute) Hyperglycemia (Acute) 1. Acute hypoxic respiratory insufficiency secondary to large right pleural effusion, s/p Pleurx catheter placement yesterday, resolved 2. Right pleural effusion, unknown etiology for now, s/p pleurex catheter Exudative cause per Light criteria. Fluid aspirate is growing gram-positive cocci Pleural fluid cytology is negative On IV ceftriaxone, awaiting final culture and sensitivity 3. 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 Liver cirrhosis with ascites, endstage, not amendable to liver transplant, hospice/palliative care recommended 5. GARFIELD, Cr elevated yesterday, refuses blood draws, on gentle IVF 6. History of rheumatoid arthritis 7. Hyperlipidemia, diet controlled 8. DVT PPx- Heparin SC 9`a. Decision making capacity -patient clearly lacks the medical decision-making capacity. She cannot fully comprehend the full extent of her medical problems. She is cannot appreciate the gravity of her medical conditions. She expresses options that are not consistent with standard treatment for this medical condition. She cannot give supporting reasons to support her expressed opinion. She has a reported history of dementia with probable bipolar disorder, not on treatment. All decisions especially with regards to treatment and discharge planning will have to be relied on her son Pino. This was relayed to Pino on phone. motion picture set up worker working on discharge planning Discussed hospice/palliative care with the son. He was open to having hospice evaluate patient. Her son lives 1 hour away from the patient. Prefers patient to be in an institution. Will likely discharge to half-way facility with palliative care or hospice. Code Visit Inpatient E&M: 45612 Subs Hosp L2
--- NOTE | 2019-06-27 22:18 | NURSING ---
spent 30 minutes with pt explaining medication. Does not believe she is receiving the correct medication, believes people are going through her belongings, and being nosey. She states you girls are the reason my blood pressure is elevated and you keep asking question about these men.
[2019-06-28] VITALS (13 sets, daily range): BP systolic 101–117; BP diastolic 53–74; PULSE 68–89; RESP 18; TEMP 36.4–36.9; O2SAT 95–97
--- NOTE | 2019-06-28 04:00 | NURSING ---
SpO2 90% on r/a, placed on 2L NC
--- NOTE | 2019-06-28 04:05 | NURSING ---
Refusing to get OOB for orthostatic BP at this time.
--- NOTE | 2019-06-28 05:00 | PN_ITS ---
Patient Problems: Active and Suspected Problems Pleural effusion, right (Acute) RA (rheumatoid arthritis) (Acute) pt has been told she has RA but, she is not on any medications Hyperglycemia (Acute) Subjective: The patient was seen and examined at the bedside this morning. Events from the last 24 hours have been reviewed. The patient is currently afebrile, hemodynamically stable and maintaining appropriate oxygen saturations on 2 L/min via nasal cannula. The patient has remained confused overnight. Pleural fluid cytology was resulted and was negative for malignant cells. Objective: The patient's most recent lab work, culture data and imaging studies have all been personally reviewed. Surface echocardiogram revealed normal LV size with an ejection fraction of 65% and stage I diastolic dysfunction. Pulmonary artery systolic pressure was estimated to be [address] abdomen/pelvis revealed a large right-sided pleural effusion with compressive atelectasis and mediastinal shift to the left. The liver was cirrhotic in appearance. Ascites was present. - Physical Exam Vitals/I&O's: Vital Signs Temp Pulse Resp BP Pulse Ox 97.8 F 77 18 117/59 L 97 06/28/19 04:00 06/28/19 04:00 06/28/19 04:00 06/28/19 04:00 06/28/19 04:00 Oxygen Flow Rate (L/min) 2 Oxygen Delivery Method Nasal Cannula Weight: 138 lb 3.677 oz Body Mass Index (BMI) 24.4 Orthostatic Vital Signs Start: 06/24/19 03:04 Freq: q24h Status: Active Protocol: Activity Type Activity Date Activity User E-Sign Co-Sign Detail Recorded Client Recorded Date Recorded By Document 06/24/19 03:00 [facility] [id number] 06/24/19 03:05 MAB 06/24/19 03:00 Orthostatic Vitals Standing -Blood Pressure (90/60-120/80) 110/50 L -Extremity Use Left Arm -Pulse Rate (60-100) 87 Sitting -Blood Pressure (90/60-120/80) 115/48 L -Extremity Use Left Arm -Pulse Rate (60-100) 86 Lying -Blood Pressure (90/60-120/80) 114/49 L -Extremity Use Left Arm -Pulse Rate (60-100) 82 Intake and Output for Last 24 Hours 06/26/19 06/27/19 06/28/19 23:59 23:59 23:59 Intake Total 2033.80 / 2033.80 1880 / 2080 200 / 200 Output Total 1840 / 1840 3030 / 4080 1050 / 1050 Balance 194.80 / 194.80 -1150 / -2000 -850 / -850 General: Alert, No apparent distress, Confused HEENT: Atraumatic, Normocephalic Oral: Moist Mucosa Neck: Supple, No Nodes, Trachea Midline Lungs: No rhonchi, No wheeze, No rales, - - Pleurx catheter in place Cardiovascular: Regular rate, Regular Rhythm, Normal S1, Normal S2, No murmurs Abdomen: Bowel Sounds Present, Soft, Non Tender, Distended Extremities: No clubbing, No cyanosis, No edema Skin: - - No significant change from previous Musculoskeletal: No Tenderness to Palpation of Joints or Extremities Lymphatic: No Cervical, Supraclavicular, or Inguinal Adenopathy Neurological: - - No focal neurological deficits. Labs (Last 48 Hours) 06/23/19 06/24/19 06/24/19 13:40 09:34 09:34 WBC RBC Hgb Hct MCV MCH MCHC RDW Std Deviation RDW Coeff of Viviane Plt Count MPV Immature Gran % (Auto) Neut % (Auto) Lymph % (Auto) Bradford % (Auto) Eos % (Auto) Baso % (Auto) Absolute Neuts (auto) Absolute Lymphs (auto) Nucleated RBC % Differential Comment Diff Path Review Reviewed Sodium Potassium Chloride Carbon Dioxide Anion Gap BUN Creatinine Estim Creat Clear Calc Est GFR (MDRD) Af Amer Est GFR (MDRD) Non-Af BUN/Creatinine Ratio Glucose Calcium Total Bilirubin AST ALT Alkaline Phosphatase Ammonia Total Protein Albumin Globulin Albumin/Globulin Ratio Armca-4-Vazbcbykzcs Fluid pH 6.6 Fl Pathologist Comment Reviewed Cycl Citrul Peptide IgG PIPPA Screen JAIDA-1 Antibody SS-A/Ro IgG Antibody SS-B/La IgG Antibody Sm (Woodard) Antibody MERCHANDISE STOCKER Antibody Scl-70 Scleroderma Ab Double Strand DNA Ab Centromere B Antibody Anti-Mitochondrial Ab Anti-Smooth Muscle Ab Hepatitis A IgM Ab Hepatitis A Ab Total Hep Bs Antigen Hep B Core Total Ab Hep B Core IgM Ab Hepatitis C Ab Confirm Hep C Confirm Com 1 Miscellaneous Cytology 06/24/19 06/24/19 06/24/19 09:34 10:49 10:49 WBC RBC Hgb Hct MCV MCH MCHC RDW Std Deviation RDW Coeff of Viviane Plt Count MPV Immature Gran % (Auto) Neut % (Auto) Lymph % (Auto) Bradford % (Auto) Eos % (Auto) Baso % (Auto) Absolute Neuts (auto) Absolute Lymphs (auto) Nucleated RBC % Differential Comment Diff Path Review Sodium Potassium Chloride Carbon Dioxide Anion Gap BUN Creatinine Estim Creat Clear Calc Est GFR (MDRD) Af Amer Est GFR (MDRD) Non-Af BUN/Creatinine Ratio Glucose Calcium Total Bilirubin AST ALT Alkaline Phosphatase Ammonia Total Protein Albumin Globulin Albumin/Globulin Ratio [id number]-8-[id number] 193 H Fluid pH Fl Pathologist Comment Cycl Citrul Peptide IgG Pending PIPPA Screen Negative JAIDA-1 Antibody TNP SS-A/Ro IgG Antibody TNP SS-B/La IgG Antibody TNP Sm (Woodard) Antibody TNP MERCHANDISE STOCKER Antibody TNP Scl-70 Scleroderma Ab TNP Double Strand DNA Ab TNP Centromere B Antibody TNP Anti-Mitochondrial Ab <20.0 Anti-Smooth Muscle Ab 81 H Hepatitis A IgM Ab Negative Hepatitis A Ab Total Positive H Hep Bs Antigen Negative Hep B Core Total Ab Negative Hep B Core IgM Ab Negative Hepatitis C Ab Confirm <0.1 Hep C Confirm Com 1 Comment Miscellaneous Cytology SEE PATHOLOGY REPORT 06/25/19 06/27/19 06/27/19 07:55 05:50 05:50 WBC 11.5 H RBC 4.18 L Hgb 13.3 Hct 41.0 MCV 98.1 MCH 31.8 MCHC 32.4 RDW Std Deviation 50.4 H RDW Coeff of Viviane 14.0 Plt Count 106 L MPV 10.0 Immature Gran % (Auto) 0.500 Neut % (Auto) 76.8 H Lymph % (Auto) 7.6 L Bradford % (Auto) 13.9 H Eos % (Auto) 0.9 Baso % (Auto) 0.3 Absolute Neuts (auto) 8.9 H Absolute Lymphs (auto) 0.88 Nucleated RBC % 0 Differential Comment SCANNED Diff Path Review Reviewed November foll Sodium Potassium Chloride Carbon Dioxide Anion Gap BUN Creatinine Estim Creat Clear Calc Est GFR (MDRD) Af Amer Est GFR (MDRD) Non-Af BUN/Creatinine Ratio Glucose Calcium Total Bilirubin AST ALT Alkaline Phosphatase Ammonia 28.0 Total Protein Albumin Globulin Albumin/Globulin Ratio Dzzjp-5-Xgewuaccvri Fluid pH Fl Pathologist Comment Cycl Citrul Peptide IgG PIPPA Screen JAIDA-1 Antibody SS-A/Ro IgG Antibody SS-B/La IgG Antibody Sm (Woodard) Antibody MERCHANDISE STOCKER Antibody Scl-70 Scleroderma Ab Double Strand DNA Ab Centromere B Antibody Anti-Mitochondrial Ab Anti-Smooth Muscle Ab Hepatitis A IgM Ab Hepatitis A Ab Total Hep Bs Antigen Hep B Core Total Ab Hep B Core IgM Ab Hepatitis C Ab Confirm Hep C Confirm Com 1 Miscellaneous Cytology 06/27/19 05:50 WBC RBC Hgb Hct MCV MCH MCHC RDW Std Deviation RDW Coeff of Viviane Plt Count MPV Immature Gran % (Auto) Neut % (Auto) Lymph % (Auto) Bradford % (Auto) Eos % (Auto) Baso % (Auto) Absolute Neuts (auto) Absolute Lymphs (auto) Nucleated RBC % Differential Comment Diff Path Review Sodium 140 Potassium 4.9 Chloride 107 Carbon Dioxide 30.0 Anion Gap 3 L BUN 43 H Creatinine 0.88 Estim Creat Clear Calc 48.43 Est GFR (MDRD) Af Amer 81 Est GFR (MDRD) Non-Af 67 BUN/Creatinine Ratio 48.8 H Glucose 137 H Calcium 8.0 L Total Bilirubin 1.00 AST 65 H ALT 30 Alkaline Phosphatase 172 H Ammonia Total Protein 6.3 L Albumin 1.5 L Globulin 4.8 H Albumin/Globulin Ratio 0.3 L Qwgcc-2-Zsgtxxwezlj Fluid pH Fl Pathologist Comment Cycl Citrul Peptide IgG PIPPA Screen JAIDA-1 Antibody SS-A/Ro IgG Antibody SS-B/La IgG Antibody Sm (Woodard) Antibody MERCHANDISE STOCKER Antibody Scl-70 Scleroderma Ab Double Strand DNA Ab Centromere B Antibody Anti-Mitochondrial Ab Anti-Smooth Muscle Ab Hepatitis A IgM Ab Hepatitis A Ab Total Hep Bs Antigen Hep B Core Total Ab Hep B Core IgM Ab Hepatitis C Ab Confirm Hep C Confirm Com 1 Miscellaneous Cytology Microbiology 06/23/19 20:55 Urine, Catheterized Urine Culture - Preliminary Mixed Gram Positive Organisms 06/24/19 09:34 Fluid - Pleural (Lung) Gram Stain - Final 06/24/19 09:34 Fluid - Pleural (Lung) Body Fluid Culture - Preliminary Gram Positive Cocci 06/24/19 09:34 Fluid - Pleural (Lung) Anaerobic Culture - Preliminary Checking for anaerobes, further studies to follow. Clinical Impression(s) from Imaging Studies Abdomen/Pelvis CT 06/23/19 13:45 IMPRESSION: Large right pleural effusion with compressive atelectasis in the right lung with shift of the heart and mediastinal structures towards the left side of the midline. Findings suggestive of cirrhosis of the liver with nodular contour and decreased size. Splenomegaly. 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 Ascites. Electronically Signed: Dorian Giorgi, at 15:06 EST , Service support , Chest CT 06/23/19 14:47 IMPRESSION: Large right pleural effusion with compressive atelectasis of the right lung with shift of the heart and mediastinal structures towards the left side of the midline. Ascites with evidence of cirrhosis of the liver and splenomegaly with varices in the splenic hilum. Electronically Signed: Dorian Rand, at 15:09 EST , Service support , Chest X-Ray 06/24/19 10:09 IMPRESSION: Moderate right effusion and right lower lobe consolidation. Left lung is clear. Electronically Signed: Cal Dodson DO at 10:41 EST Tel , Service support , Chest X-Ray 06/25/19 04:45 IMPRESSION: Mild cardiomegaly with no evidence of central vascular congestion. A significant decrease in the right-sided pleural effusion noted in yesterday''s examination. There is a right chest tube in place Electronically Signed: Baljinder Whitehead MD at 5:50 EST Tel , Service support , Current Medications Al Hydroxide/Mg Hydroxide (Mylanta Ii) 30 ml PO Q6H PRN PRN PRN Reason: Gastric Burning Bisacodyl (Dulcolax) 5 mg PO DAILY PRN PRN PRN Reason: Constipation Docusate Sodium (Colace) 100 mg PO BID [facility] Last Admin: 06/27/19 22:04 Dose: 100 mg Documented by: Haloperidol Lactate (Haldol) 2 mg IV Q6H PRN PRN PRN Reason: AGITATION Last Admin: 06/26/19 05:52 Dose: 2 mg Documented by: Heparin Sodium (Porcine) (Heparin Na) 5,000 unit SC Q8 [facility] Last Admin: 06/27/19 22:05 Dose: Not Given Documented by: Ceftriaxone Sodium 2 gm/ (Sodium Chloride) 50 mls @ 100 mls/hr IV Q24 [facility] Last Infusion: 06/27/19 10:18 Dose: Infused Documented by: Magnesium Hydroxide (Milk Of Magnesia) 30 ml PO DAILY PRN PRN PRN Reason: Constipation Metoprolol Tartrate (Lopressor (Beta Chaz)) 2.5 mg IV Q6H PRN PRN PRN Reason: tachycardia Last Admin: 06/26/19 16:59 Dose: 2.5 mg Documented by: Morphine Sulfate () 1 mg IV Q4H PRN PRN PRN Reason: Pain Score 6-10/10 Nutritional Formula (Lactose Free) (Ensure Enlive) 120 ml PO 4X/DAY [facility] Last Admin: 06/27/19 22:04 Dose: 120 ml Documented by: Ondansetron HCl (Zofran) 4 mg IV Q8H PRN PRN PRN Reason: NAUSEA/VOMITING Oxycodone HCl (Oxyir) 5 mg PO Q8H PRN PRN PRN Reason: Pain Score 4-5/10 Last Admin: 06/27/19 01:26 Dose: 5 mg Documented by: Propranolol HCl (Inderal) 20 mg PO BID [facility] Last Admin: 06/27/19 22:04 Dose: 20 mg Documented by: Sodium Chloride () 10 - 40 ml IV UD PRN PRN Reason: SALINE FLUSH Last Admin: 06/27/19 09:13 Dose: 10 ml Documented by: Medical Necessity - Tobacco Use Smoking Status: Never smoker Tobacco Use: Non-smoker Assessment/Plan All Active Problems Pleural effusion, right (Acute) RA (rheumatoid arthritis) (Acute) Hyperglycemia (Acute) RECOMMENDATIONS: 1. Await final pleural fluid cultures. 2. Continue ceftriaxone, pending finalized culture results. 3. Encourage incentive spirometer use. 4. Wean supplemental oxygen to maintain saturations at or above 90%. IMPRESSIONS: 1. Acute hypoxemic respiratory insufficiency, presumed secondary to large right pleural effusion The patient was taken to the OR on June 24, where a Pleurx catheter was placed. Pleural fluid was sent for analysis, based upon orders placed. Per traditional Light's criteria, if at least one of the following three is fulfilled, the fluid would be considered an exudate: 1. Pleural fluid protein/serum protein ratio greater than 0.5 2. Pleural fluid LDH/serum LDH ratio greater than 0.6 3. Pleural fluid LDH greater than two thirds the upper limits of the laboratories normal serum LDH Based upon my review of the patient's pleural fluid analysis, along with serum LDH and total protein levels, the pleural fluid would be considered exudative in nature. In addition, pleural fluid cell count revealed 84% neutrophils along with a glucose of 44. Serum glucose was last reported to be 121. Typically an exudative effusion with low glucose would typically point towards a complicated parapneumonic effusion, empyema, rheumatoid related or that of malignancy. Pleural fluid cytology was found to be negative for the presence of malignant cells. Pleural fluid cultures are still pending. 2. 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 It is unclear what form of further work-up has been completed recently. 3. Sepsis The patient did present to the hospital with hypotension, tachypnea, altered mental state and elevated white blood cell count. Potential sources of possible infection include the patient's pleural effusion, urinary source or peritoneal fluid infection (SBP). Therefore, the patient was placed this morning empirically on antimicrobial coverage, pending infectious work-up. 4. Acute Kidney Injury Resolved. Likely related to underlying liver disease. Continue to monitor urine output. No current indication for renal replacement therapy. 5. Questionable history of rheumatoid arthritis/hyperlipidemia Complicates care, management, recovery and prognosis. Disposition planning is underway for residential placement. This note was generated with [employer] software. It may contain incorrect words, spelling, and punctuation that were not noted in checking the note before signing. Code Visit Inpatient E&M: 48068 Subs Hosp L2
[2019-06-28] MEDS: 0.9% Saline Lock 10 ML Syringe IV (09:45)
--- NOTE | 2019-06-28 09:49 | PN.SURG_ITS ---
Patient Problems: Active and Suspected Problems Pleural effusion, right (Acute) RA (rheumatoid arthritis) (Acute) pt has been told she has RA but, she is not on any medications Hyperglycemia (Acute) Objective: sleeping - Physical Exam Vitals/I&O's: Vital Signs Temp Pulse Resp BP Pulse Ox 97.8 F 69 18 117/59 L 97 06/28/19 04:00 06/28/19 05:00 06/28/19 04:00 06/28/19 04:00 06/28/19 04:00 Oxygen Flow Rate (L/min) 2 Oxygen Delivery Method Nasal Cannula Weight: 61.1 kg Body Mass Index (BMI) 24.4 Orthostatic Vital Signs Start: 06/24/19 03:04 Freq: q24h Status: Active Protocol: Activity Type Activity Date Activity User E-Sign Co-Sign Detail Recorded Client Recorded Date Recorded By Document 06/24/19 03:00 MAB [id number] 06/24/19 03:05 MAB 06/24/19 03:00 Orthostatic Vitals Standing -Blood Pressure (90/60-120/80) 110/50 L -Extremity Use Left Arm -Pulse Rate (60-100) 87 Sitting -Blood Pressure (90/60-120/80) 115/48 L -Extremity Use Left Arm -Pulse Rate (60-100) 86 Lying -Blood Pressure (90/60-120/80) 114/49 L -Extremity Use Left Arm -Pulse Rate (60-100) 82 Intake and Output for Last 24 Hours 06/26/19 06/27/19 06/28/19 23:59 23:59 23:59 Intake Total 2034.80 / 2034.80 1880 / 2080 200 / 200 Output Total 1840 / 1840 3030 / 4080 1300 / 1300 Balance 194.80 / 194.80 -1150 / -2000 -1100 / -1100 Lungs: - - pleural fluid -straw colored Microbiology Past 72 Hours 06/24/19 09:34 Fluid - Pleural (Lung) Gram Stain - Final 06/24/19 09:34 Fluid - Pleural (Lung) Body Fluid Culture - Preliminary Gram Positive Cocci 06/24/19 09:34 Fluid - Pleural (Lung) Anaerobic Culture - Preliminary Checking for anaerobes, further studies to follow. 06/23/19 20:55 Urine, Catheterized Urine Culture - Preliminary Mixed Gram Positive Organisms Laboratory Results 06/24/19 09:34: Miscellaneous Cytology SEE PATHOLOGY REPORT Current Medications Al Hydroxide/Mg Hydroxide (Mylanta Ii) 30 ml PO Q6H PRN PRN PRN Reason: Gastric Burning Bisacodyl (Dulcolax) 5 mg PO DAILY PRN PRN PRN Reason: Constipation Docusate Sodium (Colace) 100 mg PO BID [facility] Last Admin: 06/27/19 22:04 Dose: 100 mg Documented by: Haloperidol Lactate (Haldol) 2 mg IV Q6H PRN PRN PRN Reason: AGITATION Last Admin: 06/26/19 05:52 Dose: 2 mg Documented by: Heparin Sodium (Porcine) (Heparin Na) 5,000 unit SC Q8 [facility] Last Admin: 06/28/19 05:36 Dose: Not Given Documented by: Ceftriaxone Sodium 2 gm/ (Sodium Chloride) 50 mls @ 100 mls/hr IV Q24 [facility] Last Infusion: 06/27/19 10:18 Dose: Infused Documented by: Magnesium Hydroxide (Milk Of Magnesia) 30 ml PO DAILY PRN PRN PRN Reason: Constipation Metoprolol Tartrate (Lopressor (Beta Chaz)) 2.5 mg IV Q6H PRN PRN PRN Reason: tachycardia Last Admin: 06/26/19 16:59 Dose: 2.5 mg Documented by: Morphine Sulfate () 1 mg IV Q4H PRN PRN PRN Reason: Pain Score 6-10/10 Nutritional Formula (Lactose Free) (Ensure Enlive) 120 ml PO 4X/DAY [facility] Last Admin: 06/27/19 22:04 Dose: 120 ml Documented by: Ondansetron HCl (Zofran) 4 mg IV Q8H PRN PRN PRN Reason: NAUSEA/VOMITING Oxycodone HCl (Oxyir) 5 mg PO Q8H PRN PRN PRN Reason: Pain Score 4-5/10 Last Admin: 06/27/19 01:26 Dose: 5 mg Documented by: Propranolol HCl (Inderal) 20 mg PO BID [facility] Last Admin: 06/27/19 22:04 Dose: 20 mg Documented by: Sodium Chloride () 10 - 40 ml IV UD PRN PRN Reason: SALINE FLUSH Last Admin: 06/27/19 09:13 Dose: 10 ml Documented by: Medical Necessity - Tobacco Use Smoking Status: Never smoker Tobacco Use: Non-smoker Assessment/Plan All Active Problems Pleural effusion, right (Acute) RA (rheumatoid arthritis) (Acute) Hyperglycemia (Acute) cirrhosis, massive right pleural effusion with mediastinal shift, ascites, qu estionable cholangiocarcinoma - postoperative day #1 status post right Pleurx catheter placement The patient is much less dyspneic and is able to lay flat. chest x-ray demonstrates good position of the catheter and good expansion of the lung. Patient is able to cough up some sputum today. Fluid returned as low glucose and elevated white blood cell count-cytology was negative for malignant cells consistent with inflammation. Culture demonstrates few gram-positive cocci. Pleurx catheter will be placed to 20 cm suction and follow-up chest x-rays will be monitored. given output volume- approximately 1000cc/24 hours - will maintain on Pleur-evac drainage patient with advanced cirrhosis of unknown etiology. suspicion for cholangiocarcinoma at the bifurcation/[place] tumor was raised to [facility]. Other possibility is advanced primary sclerosing cholangitis. in any event, the patient has advanced cirrhosis by imaging and was felt to be not a candidate for TIPS or transplant. For the last 2 days, the patient's been refusing further imaging or even vitals and examination. Repeat MRI/MRCP to assess liver and bile duct might help delineate a primary diagnosis but would certainly not change her cirrhosis and prognosis. Would consider palliative care consultation.
[2019-06-28] MEDS: Docusate Sodium 100 MG Capsule PO ×2 (09:50→21:41)
[2019-06-28] MEDS: Propranolol 10 MG Tablet 20 MG PO (09:50)
[2019-06-28] MEDS: Heparin Injection (Vial) 5,000 UNIT/ML VIAL 5000 UNIT SC ×2 (13:55→21:41)
[2019-06-29] VITALS (11 sets, daily range): BP systolic 96–115; BP diastolic 45–56; PULSE 70–80; RESP 16–24; TEMP 36.6–37.1; O2SAT 90–97
[2019-06-29] MEDS: Heparin Injection (Vial) 5,000 UNIT/ML VIAL 5000 UNIT SC ×3 (03:51→21:24)
[2019-06-29] MEDS: Propranolol 10 MG Tablet 20 MG PO ×2 (09:18→21:20)
[2019-06-29] MEDS: Docusate Sodium 100 MG Capsule PO ×2 (09:18→21:19)
--- NOTE | 2019-06-29 09:36 | PCM.PN.HOSP ---
Patient Problems: Active and Suspected Problems Pleural effusion, right (Acute) RA (rheumatoid arthritis) (Acute) pt has been told she has RA but, she is not on any medications Hyperglycemia (Acute) Reason for Visit: Follow-up on pleural effusion Subjective: Patient was seen and examined. No new complains. Her son was at the bedside. Discussed CODE STATUS. Patient still chooses to be full code. Vitals/I&O's: Vital Signs Temp Pulse Resp BP Pulse Ox 97.8 F 74 16 110/56 L 97 06/29/19 09:15 06/29/19 09:15 06/29/19 09:15 06/29/19 09:15 06/29/19 09:15 Oxygen Flow Rate (L/min) 1 Oxygen Delivery Method Nasal Cannula Weight: 55.5 kg Body Mass Index (BMI) 24.4 Orthostatic Vital Signs Start: 06/24/19 03:04 Freq: q24h Status: Active Protocol: Activity Type Activity Date Activity User E-Sign Co-Sign Detail Recorded Client Recorded Date Recorded By Document 06/24/19 03:00 MAB [id number] 06/24/19 03:05 MAB 06/24/19 03:00 Orthostatic Vitals Standing -Blood Pressure (90/60-120/80) 110/50 L -Extremity Use Left Arm -Pulse Rate (60-100) 87 Sitting -Blood Pressure (90/60-120/80) 115/48 L -Extremity Use Left Arm -Pulse Rate (60-100) 86 Lying -Blood Pressure (90/60-120/80) 114/49 L -Extremity Use Left Arm -Pulse Rate (60-100) 82 Intake and Output for Last 24 Hours 06/27/19 06/28/19 06/29/19 23:59 23:59 23:59 Intake Total 1880 / 2080 1030 / 1030 240 / 240 Output Total 3030 / 4080 3200 / 3200 650 / 650 Balance -1150 / -2000 -2170 / -2170 -410 / -410 Microbiology Past 72 Hours 06/24/19 09:34 Fluid - Pleural (Lung) Gram Stain - Final 06/24/19 09:34 Fluid - Pleural (Lung) Body Fluid Culture - Final Streptococcus constellatus pha 06/24/19 09:34 Fluid - Pleural (Lung) Anaerobic Culture - Final No anaerobic bacteria isolated. 06/23/19 20:55 Urine, Catheterized Urine Culture - Final Yeast, not Krysten albicans Presumptive Lactobacillus sp. Current Medications Al Hydroxide/Mg Hydroxide (Mylanta Ii) 30 ml PO Q6H PRN PRN PRN Reason: Gastric Burning Bisacodyl (Dulcolax) 5 mg PO DAILY PRN PRN PRN Reason: Constipation Docusate Sodium (Colace) 100 mg PO BID [facility] Last Admin: 06/29/19 09:18 Dose: 100 mg Documented by: Haloperidol Lactate (Haldol) 2 mg IV Q6H PRN PRN PRN Reason: AGITATION Last Admin: 06/26/19 05:52 Dose: 2 mg Documented by: Heparin Sodium (Porcine) (Heparin Na) 5,000 unit SC Q8 [facility] Last Admin: 06/29/19 03:51 Dose: 5,000 unit Documented by: Ceftriaxone Sodium 2 gm/ (Sodium Chloride) 50 mls @ 100 mls/hr IV Q24 [facility] Last Admin: 06/29/19 09:15 Dose: 100 mls/hr Documented by: Magnesium Hydroxide (Milk Of Magnesia) 30 ml PO DAILY PRN PRN PRN Reason: Constipation Metoprolol Tartrate (Lopressor (Beta Chaz)) 2.5 mg IV Q6H PRN PRN PRN Reason: tachycardia Last Admin: 06/26/19 16:59 Dose: 2.5 mg Documented by: Morphine Sulfate () 1 mg IV Q4H PRN PRN PRN Reason: Pain Score 6-10/10 Nutritional Formula (Lactose Free) (Ensure Enlive) 120 ml PO 4X/DAY [facility] Last Admin: 06/29/19 09:15 Dose: 120 ml Documented by: Ondansetron HCl (Zofran) 4 mg IV Q8H PRN PRN PRN Reason: NAUSEA/VOMITING Oxycodone HCl (Oxyir) 5 mg PO Q8H PRN PRN PRN Reason: Pain Score 4-5/10 Last Admin: 06/27/19 01:26 Dose: 5 mg Documented by: Propranolol HCl (Inderal) 20 mg PO BID [facility] Last Admin: 06/29/19 09:18 Dose: 20 mg Documented by: Sodium Chloride () 10 - 40 ml IV UD PRN PRN Reason: SALINE FLUSH Last Admin: 06/28/19 09:45 Dose: 10 ml Documented by: STROKE Vital Signs/Narrative: Vital Signs Temp Pulse Resp BP Pulse Ox 06/29/19 09:15 97.8 F 74 16 110/56 L 97 06/29/19 07:20 95 06/29/19 07:03 70 Medical Necessity - Tobacco Use Smoking Status: Never smoker Tobacco Use: Non-smoker Assessment/Plan All Active Problems Pleural effusion, right (Acute) RA (rheumatoid arthritis) (Acute) Hyperglycemia (Acute) 1. Acute hypoxic respiratory insufficiency secondary to large right pleural effusion, s/p Pleurx catheter placement yesterday, resolved 2. Acute streptococcus right pleural effusion, Unknown etiology for now, s/p pleurex catheter Exudative cause per Light criteria. Fluid aspirate is growing streptococcus Pleural fluid cytology is negative On IV ceftriaxone, ID consulted 3. 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 Liver cirrhosis with ascites, endstage, Not amendable to liver transplant, hospice/palliative care recommended 5. GARFIELD, resolved 6. History of rheumatoid arthritis 7. Hyperlipidemia, diet controlled 8. DVT PPx- Heparin SC 9. Decision making capacity -patient clearly lacks the medical decision-making capacity. Discharge planning for SNF ongoing Code Visit Inpatient E&M: [id number] Subs Hosp L2
--- NOTE | 2019-06-29 09:43 | PCM.PN.PUL ---
Patient Problems: Active and Suspected Problems Pleural effusion, right (Acute) RA (rheumatoid arthritis) (Acute) pt has been told she has RA but, she is not on any medications Hyperglycemia (Acute) Subjective: Patient did okay overnight. Patient does report some improvement in respiratory status, but was somewhat disappointed that she is still requiring supplemental oxygen to maintain saturations. Patient continues to have significant output out of the chest tube. Patient was not confused this morning during my evaluation. Objective: Patient continues to have significant output out of the chest tube. Previous echocardiogram did show some diastolic dysfunction with an EF of 65% and pulmonary artery pressures of 52 mmHg. - Physical Exam Vitals/I&O's: Vital Signs Temp Pulse Resp BP Pulse Ox 36.6 C 74 16 110/56 L 97 06/29/19 09:15 06/29/19 09:15 06/29/19 09:15 06/29/19 09:15 06/29/19 09:15 Oxygen Flow Rate (L/min) 1 Oxygen Delivery Method Nasal Cannula Weight: 55.5 kg Body Mass Index (BMI) 24.4 Orthostatic Vital Signs Start: 06/24/19 03:04 Freq: q24h Status: Active Protocol: Activity Type Activity Date Activity User E-Sign Co-Sign Detail Recorded Client Recorded Date Recorded By Document 06/24/19 03:00 [facility] [id number] 06/24/19 03:05 [facility] 06/24/19 03:00 Orthostatic Vitals Standing -Blood Pressure (90/60-120/80) 110/50 L -Extremity Use Left Arm -Pulse Rate (60-100) 87 Sitting -Blood Pressure (90/60-120/80) 115/48 L -Extremity Use Left Arm -Pulse Rate (60-100) 86 Lying -Blood Pressure (90/60-120/80) 114/49 L -Extremity Use Left Arm -Pulse Rate (60-100) 82 Intake and Output for Last 24 Hours 06/27/19 06/28/19 06/29/19 23:59 23:59 23:59 Intake Total 1880 / 2080 1030 / 1030 240 / 240 Output Total 3030 / 4080 3200 / 3200 650 / 650 Balance -1150 / -2000 -2170 / -2170 -410 / -410 General: Alert, Oriented x3, Cooperative, No apparent distress, - - Appears older than stated age. No conversational dyspnea. HEENT: Atraumatic, PERRLA, EOMI, Normocephalic, - - No scleral icterus or injection noted Oral: Moist Mucosa, No Gingival or Mucosal Lesions/ Ulcerations Neck: Supple, No JVD, No Nodes, Trachea Midline Lungs: No rhonchi, No wheeze, No rales, Diminished, - - Right Pleurx catheter in place attached to a pneumo vac Cardiovascular: Regular rate, Regular Rhythm, Normal S1, Normal S2, No murmurs, No rub noted, No Gallop Abdomen: Bowel Sounds Present, Soft, Non Tender, Non-Distended Extremities: No clubbing, No cyanosis, No edema, Capillary Refill Less than 3 Seconds Skin: No rashes, No breakdown Musculoskeletal: No Tenderness to Palpation of Joints or Extremities Lymphatic: No Cervical, Supraclavicular, or Inguinal Adenopathy Neurological: Cranial nerves II-XII grossly intact, Neuro grossly intact, Motor Exam 5/5 strength throughout Psych/Mental Status: Normal Affect, Appropriate Microbiology Past 72 Hours 06/24/19 09:34 Fluid - Pleural (Lung) Gram Stain - Final 06/24/19 09:34 Fluid - Pleural (Lung) Body Fluid Culture - Final Streptococcus constellatus pha 06/24/19 09:34 Fluid - Pleural (Lung) Anaerobic Culture - Final No anaerobic bacteria isolated. 06/23/19 20:55 Urine, Catheterized Urine Culture - Final Yeast, not Krysten albicans Presumptive Lactobacillus sp. Current Medications Al Hydroxide/Mg Hydroxide (Mylanta Ii) 30 ml PO Q6H PRN PRN PRN Reason: Gastric Burning Bisacodyl (Dulcolax) 5 mg PO DAILY PRN PRN PRN Reason: Constipation Docusate Sodium (Colace) 100 mg PO BID [facility] Last Admin: 06/29/19 09:18 Dose: 100 mg Documented by: Haloperidol Lactate (Haldol) 2 mg IV Q6H PRN PRN PRN Reason: AGITATION Last Admin: 06/26/19 05:52 Dose: 2 mg Documented by: Heparin Sodium (Porcine) (Heparin Na) 5,000 unit SC Q8 [facility] Last Admin: 06/29/19 03:51 Dose: 5,000 unit Documented by: Ceftriaxone Sodium 2 gm/ (Sodium Chloride) 50 mls @ 100 mls/hr IV Q24 [facility] Last Admin: 06/29/19 09:15 Dose: 100 mls/hr Documented by: Magnesium Hydroxide (Milk Of Magnesia) 30 ml PO DAILY PRN PRN PRN Reason: Constipation Metoprolol Tartrate (Lopressor (Beta Chaz)) 2.5 mg IV Q6H PRN PRN PRN Reason: tachycardia Last Admin: 06/26/19 16:59 Dose: 2.5 mg Documented by: Morphine Sulfate () 1 mg IV Q4H PRN PRN PRN Reason: Pain Score 6-10/10 Nutritional Formula (Lactose Free) (Ensure Enlive) 120 ml PO 4X/DAY [facility] Last Admin: 06/29/19 09:15 Dose: 120 ml Documented by: Ondansetron HCl (Zofran) 4 mg IV Q8H PRN PRN PRN Reason: NAUSEA/VOMITING Oxycodone HCl (Oxyir) 5 mg PO Q8H PRN PRN PRN Reason: Pain Score 4-5/10 Last Admin: 06/27/19 01:26 Dose: 5 mg Documented by: Propranolol HCl (Inderal) 20 mg PO BID [facility] Last Admin: 06/29/19 09:18 Dose: 20 mg Documented by: Sodium Chloride () 10 - 40 ml IV UD PRN PRN Reason: SALINE FLUSH Last Admin: 06/28/19 09:45 Dose: 10 ml Documented by: Medical Necessity - Tobacco Use Smoking Status: Never smoker Tobacco Use: Non-smoker Assessment/Plan All Active Problems Pleural effusion, right (Acute) RA (rheumatoid arthritis) (Acute) Hyperglycemia (Acute) RECOMMENDATIONS: 1. Consider infectious disease consultation for antibiotic duration 2. Likely okay to wean antibiotic spectrum given culture results 3. Encourage incentive spirometer use. 4. Wean supplemental oxygen to maintain saturations at or above 90%. IMPRESSIONS: 1. Acute hypoxemic respiratory insufficiency, presumed secondary to large right pleural effusion Patient appears to have responded well to therapy. Patient is having significant output out of the Pleurx catheter. Normal recommendations would be to time draining of Pleurx to equal 1 L each time. Patient will need to continue with antibiotics. Consider infectious disease recommendations for antibiotic duration given the presence of bacteria and the Pleurx catheter. Clinical suspicion for high output chest tube secondary to multiple comorbidities leading to fluid production. 2. 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 Would defer to patient's primary care team at [facility] for work-up of cholangiocarcinoma. 3. Sepsis Patient has remained hemodynamically stable. Mental status appears to be improving compared to previous, but patient was not evaluated by myself previously. 4. Acute Kidney Injury Resolved. Likely related to underlying liver disease. Continue to monitor urine output. No current indication for renal replacement therapy. 5. Questionable history of rheumatoid arthritis/hyperlipidemia Complicates care, management, recovery and prognosis. Disposition planning is underway for assisted placement. Code Visit Inpatient E&M: [id number] Subs Hosp L2
--- NOTE | 2019-06-29 09:52 | CASEMGMT ---
Updates faxed to [facility] [place]. Await pre-cert. Sendy NUGENT MSW
--- NOTE | 2019-06-29 10:17 | CASEMGMT ---
Pt indicated to admitting RN she has LW/POA forms but is unable to bring them in at this time, she indicated son Pino Dukes is her healthcare POA. TAMRA Anderson
[2019-06-29 11:47] LABS: CCP IgG Antibodies 9 units (0-19)
[2019-06-29 12:30] LABS: Pathologist Review Reviewed
[2019-06-29] MEDS: Cefdinir 300 MG Capsule PO ×2 (12:46→21:20)
[2019-06-29 13:09] LABS: ALB/GLOB Ratio 0.3 RATIO (0.9-2.4); AST(SGOT) 88 U/L (15-37); Alanine Aminotransfer ALT/SGPT 52 U/L (13-56); Albumin, Serum 1.6 g/dL (3.2-5.0); Alkaline Phosphatase 205 U/L (45-117); Anion Gap 2 (5-15); BUN 38 mg/dL (7-18); BUN/Creat Ratio 41.3 RATIO (10-20); Calcium,Total 8.2 mg/dL (8.5-10.1); Chloride 100 mmol/L (98-107); Creatinine, Serum 0.92 mg/dL (0.55-1.02); EST Glomerular Filtration Rate 63 mL/min (>60); Est Glom Filt Rate - Afr Amer 77 mL/min (>60); Estimated Creatinine Clearance 46.33 ml/min; Glucose 191 mg/dL (74-106); Potassium 5.3 mmol/L (3.5-5.1); Protein, Total 6.6 g/dL (6.4-8.2); Sodium Level 137 mmol/L (136-145)
--- NOTE | 2019-06-29 14:45 | CON.PCM_ITS ---
Problem List (1) Pleural effusion, right Status: Acute Reason for Consult: infected effusion Consulted by: Dr. Meehan History of Present Illness: The patient is a 73 year old F with cirrhosis, recurrent pleural effusion, presented from [facility] 06/23 with one day h/o abd pain and diarrhea. Gets routine thoracentesis as an outpt. In ED, found to be hypoxic, hypotensive. Admitted, started on meropenem, clinda, then changed to ceftriaxone. Seen by pulm and cardio. Had thoracentesis done, showed exudative fluid (+) strep. Now on omnicef, chest tube remains in place. Full ROS performed and neg except as noted above. Denies cough or SOB, no fever here. - Medical History Past Medical History (Chronic Problems): Chronic Problems Hyperlipidemia (Chronic) Cirrhosis of liver (Chronic) Asthma (Chronic) Splenomegaly (Chronic) Hypoprothrombinemia (Chronic) Cataract (Chronic) Allergies/Adverse Reactions: Allergies Penicillins Allergy (Verified 06/23/19 13:17) Unknown Home Medications: Ambulatory Orders Medication Instructions Recorded Albuterol Sulfate [Ventolin Hfa] 2 puff INHALATION Q6H PRN 06/23/19 Furosemide 40 mg PO DAILY 06/23/19 Propranolol HCl 20 mg PO BID 06/23/19 - Social History Tobacco Use: non-smoker Vital Signs Temp Pulse Resp BP Pulse Ox 97.8 F 74 16 110/56 L 90 06/29/19 09:15 06/29/19 09:15 06/29/19 09:15 06/29/19 09:15 06/29/19 12:30 Oxygen Flow Rate (L/min) 1 Oxygen Delivery Method Room Air Weight: 55.5 kg Body Mass Index (BMI) 24.4 Orthostatic Vital Signs Start: 06/24/19 03:04 Freq: q24h Status: Active Protocol: Activity Type Activity Date Activity User E-Sign Co-Sign Detail Recorded Client Recorded Date Recorded By Document 06/24/19 03:00 [facility] [id number] 06/24/19 03:05 MAB 06/24/19 03:00 Orthostatic Vitals Standing -Blood Pressure (90/60-120/80) 110/50 L -Extremity Use Left Arm -Pulse Rate (60-100) 87 Sitting -Blood Pressure (90/60-120/80) 115/48 L -Extremity Use Left Arm -Pulse Rate (60-100) 86 Lying -Blood Pressure (90/60-120/80) 114/49 L -Extremity Use Left Arm -Pulse Rate (60-100) 82 Microbiology Past 72 Hours 06/24/19 09:34 Gram Stain - Final Fluid - Pleural (Lung) Body Fluid Culture - Final Streptococcus constellatus pha Anaerobic Culture - Final No anaerobic bacteria isolated. 06/23/19 20:55 Urine Culture - Final Urine, Catheterized Yeast, not Krysten albicans Presumptive Lactobacillus sp. Laboratory Tests Past 24 Hrs 06/24/19 06/27/19 06/29/19 10:49 05:50 11:55 Diff Path Review Reviewed Sodium 137 Potassium 5.3 H Chloride 100 Carbon Dioxide 35.0 H Anion Gap 2 L BUN 38 H Creatinine 0.92 Estim Creat Clear Calc 46.33 Est GFR (MDRD) Af Amer 77 Est GFR (MDRD) Non-Af 63 BUN/Creatinine Ratio 41.3 H Glucose 191 H Calcium 8.2 L Total Bilirubin 1.60 H AST 88 H ALT 52 Alkaline Phosphatase 205 H Total Protein 6.6 Albumin 1.6 L Globulin 5.0 H Albumin/Globulin Ratio 0.3 L Cycl Citrul Peptide IgG 9 Anti-Smooth Muscle Ab 81 H Hepatitis A IgM Ab Negative Hepatitis A Ab Total Positive H Hep Bs Antigen Negative Hep B Core Total Ab Negative Hep B Core IgM Ab Negative Hepatitis C Ab Confirm <0.1 Hep C Confirm Com 1 Comment - Other Studies Radiology: [] reviewed Other Studies: [] Route of nutrition/ use of supplements: [] Nutritional Intake: [] IV Site: [] [place] Catheter: [] - Physical Exam General: Alert, Oriented x3, Cooperative, No apparent distress HEENT: Atraumatic, PERRLA, EOMI Neck: Supple, No Nodes Lungs: Clear to auscultation, Normal air movement Cardiovascular: Regular rate, Regular Rhythm Abdomen: Soft, Non Tender, Non-Distended Extremities: No edema Skin: No rashes IV Site: Peripheral Musculoskeletal: No Tenderness to Palpation of Joints or Extremities Neurological: Cranial nerves II-XII grossly intact - Assessment/Plan Antibiotics: [] Assessment/Plan: [] Active and Suspected Problems Pleural effusion, right (Acute) RA (rheumatoid arthritis) (Acute) pt has been told she has RA but, she is not on any medications Hyperglycemia (Acute) Infected R pleural effusion - cx with strep. Fluid was exudative, cloudy. Ches t tube remains in place. Plan on omnicef for 2 more weeks of therapy. Will follow, thank you.
--- NOTE | 2019-06-29 22:06 | PCM.PN.SRG ---
Patient Problems: Active and Suspected Problems Pleural effusion, right (Acute) RA (rheumatoid arthritis) (Acute) pt has been told she has RA but, she is not on any medications Hyperglycemia (Acute) Subjective: no shortness of breath - Physical Exam Vitals/I&O's: Vital Signs Temp Pulse Resp BP Pulse Ox 98.1 F 78 24 H 115/54 L 96 06/29/19 21:13 06/29/19 21:13 06/29/19 21:13 06/29/19 21:13 06/29/19 21:13 Oxygen Flow Rate (L/min) 1 Oxygen Delivery Method Room Air Weight: 55.5 kg Body Mass Index (BMI) 24.4 Orthostatic Vital Signs Start: 06/24/19 03:04 Freq: q24h Status: Active Protocol: Activity Type Activity Date Activity User E-Sign Co-Sign Detail Recorded Client Recorded Date Recorded By Document 06/24/19 03:00 MAB [id number] 06/24/19 03:05 MAB 06/24/19 03:00 Orthostatic Vitals Standing -Blood Pressure (90/60-120/80) 110/50 L -Extremity Use Left Arm -Pulse Rate (60-100) 87 Sitting -Blood Pressure (90/60-120/80) 115/48 L -Extremity Use Left Arm -Pulse Rate (60-100) 86 Lying -Blood Pressure (90/60-120/80) 114/49 L -Extremity Use Left Arm -Pulse Rate (60-100) 82 Intake and Output for Last 24 Hours 06/27/19 06/28/19 06/29/19 23:59 23:59 23:59 Intake Total 1880 / 2080 1030 / 1030 1020 / 1020 Output Total 3030 / 4080 3200 / 3200 2140 / 2140 Balance -1150 / -2000 -2170 / -2170 -1120 / -1120 General: Alert, Cooperative Lungs: - - symmetric, CT output serous Microbiology Past 72 Hours 06/24/19 09:34 Fluid - Pleural (Lung) Gram Stain - Final 06/24/19 09:34 Fluid - Pleural (Lung) Body Fluid Culture - Final Streptococcus constellatus pha 06/24/19 09:34 Fluid - Pleural (Lung) Anaerobic Culture - Final No anaerobic bacteria isolated. 06/23/19 20:55 Urine, Catheterized Urine Culture - Final Yeast, not Krysten albicans Presumptive Lactobacillus sp. Laboratory Results 06/24/19 10:49: Cycl Citrul Peptide IgG 9, Anti-Smooth Muscle Ab 81 H, Hepatitis A IgM Ab Negative, Hepatitis A Ab Total Positive H, Hep Bs Antigen Negative, Hep B Core Total Ab Negative, Hep B Core IgM Ab Negative, Hepatitis C Ab Confirm <0.1, Hep C Confirm Com 1 Comment 06/27/19 05:50: Diff Path Review Reviewed 06/29/19 11:55: Sodium 137, Potassium 5.3 H, Chloride 100, Carbon Dioxide 35.0 H, Anion Gap 2 L, BUN 38 H, Creatinine 0.92, Estim Creat Clear Calc 46.33, Est GFR (MDRD) Af Amer 77, Est GFR (MDRD) Non-Af 63, BUN/Creatinine Ratio 41.3 H, Glucose 191 H, Calcium 8.2 L, Total Bilirubin 1.60 H, AST 88 H, ALT 52, Alkaline Phosphatase 205 H, Total Protein 6.6, Albumin 1.6 L, Globulin 5.0 H, Albumin/Globulin Ratio 0.3 L Current Medications Al Hydroxide/Mg Hydroxide (Mylanta Ii) 30 ml PO Q6H PRN PRN PRN Reason: Gastric Burning Bisacodyl (Dulcolax) 5 mg PO DAILY PRN PRN PRN Reason: Constipation Cefdinir (Omnicef [Equiv]) 300 mg PO Q12 [facility] Last Admin: 06/29/19 21:20 Dose: 300 mg Documented by: Docusate Sodium (Colace) 100 mg PO BID [facility] Last Admin: 06/29/19 21:19 Dose: 100 mg Documented by: Haloperidol Lactate (Haldol) 2 mg IV Q6H PRN PRN PRN Reason: AGITATION Last Admin: 06/26/19 05:52 Dose: 2 mg Documented by: Heparin Sodium (Porcine) (Heparin Na) 5,000 unit SC Q8 [facility] Last Admin: 06/29/19 21:24 Dose: 5,000 unit Documented by: Magnesium Hydroxide (Milk Of Magnesia) 30 ml PO DAILY PRN PRN PRN Reason: Constipation Metoprolol Tartrate (Lopressor (Beta Chaz)) 2.5 mg IV Q6H PRN PRN PRN Reason: tachycardia Last Admin: 06/26/19 16:59 Dose: 2.5 mg Documented by: Morphine Sulfate () 1 mg IV Q4H PRN PRN PRN Reason: Pain Score 6-10/10 Nutritional Formula (Lactose Free) (Ensure Enlive) 120 ml PO 4X/DAY [facility] Last Admin: 06/29/19 21:31 Dose: 120 ml Documented by: Ondansetron HCl (Zofran) 4 mg IV Q8H PRN PRN PRN Reason: NAUSEA/VOMITING Oxycodone HCl (Oxyir) 5 mg PO Q8H PRN PRN PRN Reason: Pain Score 4-5/10 Last Admin: 06/27/19 01:26 Dose: 5 mg Documented by: Propranolol HCl (Inderal) 20 mg PO BID [facility] Last Admin: 06/29/19 21:20 Dose: 20 mg Documented by: Sodium Chloride () 10 - 40 ml IV UD PRN PRN Reason: SALINE FLUSH Last Admin: 06/28/19 09:45 Dose: 10 ml Documented by: Medical Necessity - Tobacco Use Smoking Status: Never smoker Tobacco Use: Non-smoker Assessment/Plan All Active Problems Pleural effusion, right (Acute) RA (rheumatoid arthritis) (Acute) Hyperglycemia (Acute) cirrhosis, massive right pleural effusion with mediastinal shift, ascites, questionable cholangiocarcinoma - postoperative day #1 status post right Pleurx catheter placement The patient is much less dyspneic and is able to lay flat. chest x-ray demonstrates good position of the catheter and good expansion of the lung. Patient is able to cough up some sputum today. Fluid returned as low glucose and elevated white blood cell count-cytology was negative for malignant cells consistent with inflammation. Culture demonstrates few gram-positive cocci. Pleurx catheter will be placed to 20 cm suction and follow-up chest x-rays will be monitored. given output volume- approximately 1600cc/24 hours - will maintain on Pleur-evac drainage patient with advanced cirrhosis of unknown etiology. suspicion for cholangiocarcinoma at the bifurcation/[place] tumor was raised to [facility]. Other possibility is advanced primary sclerosing cholangitis. in any event, the patient has advanced cirrhosis by imaging and was felt to be not a candidate for TIPS or transplant. For the last 2 days, the patient's been refusing further imaging or even vitals and examination. Repeat MRI/MRCP to assess liver and bile duct might help delineate a primary diagnosis but would certainly not change her cirrhosis and prognosis. Would consider palliative care consultation.
[2019-06-30] VITALS (11 sets, daily range): BP systolic 93–117; BP diastolic 47–95; PULSE 67–98; RESP 14–25; TEMP 36.4–36.6; O2SAT 94–98
[2019-06-30] MEDS: Acetaminophen 325 MG Tablet 650 MG PO (03:10)
[2019-06-30] MEDS: Heparin Injection (Vial) 5,000 UNIT/ML VIAL 5000 UNIT SC ×2 (05:30→14:20)
--- NOTE | 2019-06-30 08:38 | PCM.PN.PUL ---
Patient Problems: Active and Suspected Problems Pleural effusion, right (Acute) RA (rheumatoid arthritis) (Acute) pt has been told she has RA but, she is not on any medications Hyperglycemia (Acute) Subjective: Patient did okay overnight. Patient is not reporting any respiratory complaints at this time. Patient continues to have significant amounts of drainage from the chest tube reported by nursing. Patient denies any pain. - Physical Exam Vitals/I&O's: Vital Signs Temp Pulse Resp BP Pulse Ox 36.6 C 69 21 H 93/47 L 97 06/30/19 05:18 06/30/19 05:18 06/30/19 05:18 06/30/19 05:18 06/30/19 05:18 Oxygen Flow Rate (L/min) 1 Oxygen Delivery Method Room Air Weight: 56.4 kg Body Mass Index (BMI) 24.4 Orthostatic Vital Signs Start: 06/24/19 03:04 Freq: q24h Status: Active Protocol: Activity Type Activity Date Activity User E-Sign Co-Sign Detail Recorded Client Recorded Date Recorded By Document 06/24/19 03:00 [facility] [id number] 06/24/19 03:05 MAB 06/24/19 03:00 Orthostatic Vitals Standing -Blood Pressure (90/60-120/80) 110/50 L -Extremity Use Left Arm -Pulse Rate (60-100) 87 Sitting -Blood Pressure (90/60-120/80) 115/48 L -Extremity Use Left Arm -Pulse Rate (60-100) 86 Lying -Blood Pressure (90/60-120/80) 114/49 L -Extremity Use Left Arm -Pulse Rate (60-100) 82 Intake and Output for Last 24 Hours 06/28/19 06/29/19 06/30/19 23:59 23:59 23:59 Intake Total 1030 / 1030 1840 / 1840 30 / 30 Output Total 3200 / 3200 2650 / 2650 100 / 100 Balance -2170 / -2170 -810 / -810 -70 / -70 General: Alert, Cooperative, No apparent distress, - - No conversational dyspnea. HEENT: Atraumatic, PERRLA, EOMI, Normocephalic, - - No scleral icterus or injection noted Oral: Moist Mucosa, No Gingival or Mucosal Lesions/ Ulcerations Neck: Supple, No JVD, No Nodes, Trachea Midline Lungs: No rhonchi, No wheeze, No rales, Diminished, - - Symmetric expansion. No dullness to percussion. No voluntary splinting secondary to chest tube Cardiovascular: Regular rate, Regular Rhythm, Normal S1, Normal S2, No murmurs, No rub noted, No Gallop Abdomen: Bowel Sounds Present, Soft, Non Tender, Distended - Slightly Extremities: No clubbing, No cyanosis, No edema, Capillary Refill Less than 3 Seconds Skin: No rashes, No breakdown Musculoskeletal: No Tenderness to Palpation of Joints or Extremities Lymphatic: No Cervical, Supraclavicular, or Inguinal Adenopathy Neurological: Cranial nerves II-XII grossly intact, Neuro grossly intact, Motor Exam 5/5 strength throughout Psych/Mental Status: Anxious, - - Slightly paranoid Microbiology Past 72 Hours 06/24/19 09:34 Fluid - Pleural (Lung) Gram Stain - Final 06/24/19 09:34 Fluid - Pleural (Lung) Body Fluid Culture - Final Streptococcus constellatus pha 06/24/19 09:34 Fluid - Pleural (Lung) Anaerobic Culture - Final No anaerobic bacteria isolated. 06/23/19 20:55 Urine, Catheterized Urine Culture - Final Yeast, not Krysten albicans Presumptive Lactobacillus sp. Laboratory Results 06/24/19 10:49: Cycl Citrul Peptide IgG 9, Anti-Smooth Muscle Ab 81 H, Hepatitis A IgM Ab Negative, Hepatitis A Ab Total Positive H, Hep Bs Antigen Negative, Hep B Core Total Ab Negative, Hep B Core IgM Ab Negative, Hepatitis C Ab Confirm <0.1, Hep C Confirm Com 1 Comment 06/27/19 05:50: Diff Path Review Reviewed 06/29/19 11:55: Sodium 137, Potassium 5.3 H, Chloride 100, Carbon Dioxide 35.0 H, Anion Gap 2 L, BUN 38 H, Creatinine 0.92, Estim Creat Clear Calc 46.33, Est GFR (MDRD) Af Amer 77, Est GFR (MDRD) Non-Af 63, BUN/Creatinine Ratio 41.3 H, Glucose 191 H, Calcium 8.2 L, Total Bilirubin 1.60 H, AST 88 H, ALT 52, Alkaline Phosphatase 205 H, Total Protein 6.6, Albumin 1.6 L, Globulin 5.0 H, Albumin/Globulin Ratio 0.3 L Current Medications Acetaminophen (Tylenol) 650 mg PO Q6H PRN PRN PRN Reason: Fever, headache, pain(1-10) Last Admin: 06/30/19 03:10 Dose: 650 mg Documented by: Al Hydroxide/Mg Hydroxide (Mylanta Ii) 30 ml PO Q6H PRN PRN PRN Reason: Gastric Burning Bisacodyl (Dulcolax) 5 mg PO DAILY PRN PRN PRN Reason: Constipation Cefdinir (Omnicef [Equiv]) 300 mg PO Q12 [facility] Last Admin: 06/29/19 21:20 Dose: 300 mg Documented by: Docusate Sodium (Colace) 100 mg PO BID [facility] Last Admin: 06/29/19 21:19 Dose: 100 mg Documented by: Haloperidol Lactate (Haldol) 2 mg IV Q6H PRN PRN PRN Reason: AGITATION Last Admin: 06/26/19 05:52 Dose: 2 mg Documented by: Heparin Sodium (Porcine) (Heparin Na) 5,000 unit SC Q8 [facility] Last Admin: 06/30/19 05:30 Dose: 5,000 unit Documented by: Magnesium Hydroxide (Milk Of Magnesia) 30 ml PO DAILY PRN PRN PRN Reason: Constipation Metoprolol Tartrate (Lopressor (Beta Chaz)) 2.5 mg IV Q6H PRN PRN PRN Reason: tachycardia Last Admin: 06/26/19 16:59 Dose: 2.5 mg Documented by: Morphine Sulfate () 1 mg IV Q4H PRN PRN PRN Reason: Pain Score 6-10/10 Nutritional Formula (Lactose Free) (Ensure Enlive) 120 ml PO 4X/DAY [facility] Last Admin: 06/29/19 21:31 Dose: 120 ml Documented by: Ondansetron HCl (Zofran) 4 mg IV Q8H PRN PRN PRN Reason: NAUSEA/VOMITING Oxycodone HCl (Oxyir) 5 mg PO Q8H PRN PRN PRN Reason: Pain Score 4-5/10 Last Admin: 06/27/19 01:26 Dose: 5 mg Documented by: Propranolol HCl (Inderal) 20 mg PO BID [facility] Last Admin: 06/29/19 21:20 Dose: 20 mg Documented by: Sodium Chloride () 10 - 40 ml IV UD PRN PRN Reason: SALINE FLUSH Last Admin: 12/25/19 09:45 Dose: 10 ml Documented by: Medical Necessity - Tobacco Use Smoking Status: Never smoker Tobacco Use: Non-smoker Assessment/Plan All Active Problems Pleural effusion, right (Acute) RA (rheumatoid arthritis) (Acute) Hyperglycemia (Acute) RECOMMENDATIONS: 1. Defer to surgery on timing for discontinuation of pleuroVAC 2. Appreciate infectious disease recommendations 3. Encourage incentive spirometer use. 4. Walking oximetry prior to discharge 5. Okay to discharge from a pulmonary perspective once surgery okay with chest tube output IMPRESSIONS: 1. Acute hypoxemic respiratory insufficiency, presumed secondary to large right pleural effusion Patient appears to have responded well to therapy. Patient is still having significant output out of the Pleurx catheter. Normal recommendations would be to time draining of Pleurx to equal 1 L each time. Infectious disease is recommending 2 weeks of antibiotics. Clinical suspicion for high output chest tube secondary to multiple comorbidities leading to fluid production. Would defer to surgery on transition off of pleuroVAC. 2. 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 Would defer to patient's primary care team at [facility] for work-up of cholangiocarcinoma. 3. Sepsis Patient has remained hemodynamically stable. Mental status appears to be improving compared to previous. Patient is still slightly paranoid, but asking appropriate questions and is redirectable. 4. Acute Kidney Injury Resolved. Likely related to underlying liver disease. Continue to monitor urine output. No current indication for renal replacement therapy. 5. Questionable history of rheumatoid arthritis/hyperlipidemia Complicates care, management, recovery and prognosis. Disposition planning is underway for long-term placement. Code Visit Inpatient E&M: 84020 Subs Hosp L2
--- NOTE | 2019-06-30 10:20 | PCM.PN.SRG ---
Patient Problems: Active and Suspected Problems Pleural effusion, right (Acute) RA (rheumatoid arthritis) (Acute) pt has been told she has RA but, she is not on any medications Hyperglycemia (Acute) Subjective: tiffanie want anything done. - Physical Exam Vitals/I&O's: Vital Signs Temp Pulse Resp BP Pulse Ox 97.7 F L 77 14 109/58 L 94 06/30/19 08:42 06/30/19 08:42 06/30/19 08:42 06/30/19 08:42 06/30/19 08:42 Oxygen Flow Rate (L/min) 1 Oxygen Delivery Method Room Air Weight: 56.4 kg Body Mass Index (BMI) 24.4 Orthostatic Vital Signs Start: 06/24/19 03:04 Freq: q24h Status: Active Protocol: Activity Type Activity Date Activity User E-Sign Co-Sign Detail Recorded Client Recorded Date Recorded By Document 06/24/19 03:00 MAB [id number] 06/24/19 03:05 MAB 06/24/19 03:00 Orthostatic Vitals Standing -Blood Pressure (90/60-120/80) 110/50 L -Extremity Use Left Arm -Pulse Rate (60-100) 87 Sitting -Blood Pressure (90/60-120/80) 115/48 L -Extremity Use Left Arm -Pulse Rate (60-100) 86 Lying -Blood Pressure (90/60-120/80) 114/49 L -Extremity Use Left Arm -Pulse Rate (60-100) 82 Intake and Output for Last 24 Hours 06/28/19 06/29/19 06/30/19 23:59 23:59 23:59 Intake Total 1030 / 1030 1840 / 1840 30 / 30 Output Total 3200 / 3200 2650 / 2650 100 / 100 Balance -2170 / -2170 -810 / -810 -70 / -70 General: Alert, Non-Cooperative - mildly Lungs: - - Chest tube output serous. Microbiology Past 72 Hours 06/24/19 09:34 Fluid - Pleural (Lung) Gram Stain - Final 06/24/19 09:34 Fluid - Pleural (Lung) Body Fluid Culture - Final Streptococcus constellatus pha 06/24/19 09:34 Fluid - Pleural (Lung) Anaerobic Culture - Final No anaerobic bacteria isolated. 06/23/19 20:55 Urine, Catheterized Urine Culture - Final Yeast, not Krysten albicans Presumptive Lactobacillus sp. Laboratory Results 06/24/19 10:49: Cycl Citrul Peptide IgG 9, Anti-Smooth Muscle Ab 81 H, Hepatitis A IgM Ab Negative, Hepatitis A Ab Total Positive H, Hep Bs Antigen Negative, Hep B Core Total Ab Negative, Hep B Core IgM Ab Negative, Hepatitis C Ab Confirm <0.1, Hep C Confirm Com 1 Comment 06/27/19 05:50: Diff Path Review Reviewed 06/29/19 11:55: Sodium 137, Potassium 5.3 H, Chloride 100, Carbon Dioxide 35.0 H, Anion Gap 2 L, BUN 38 H, Creatinine 0.92, Estim Creat Clear Calc 46.33, Est GFR (MDRD) Af Amer 77, Est GFR (MDRD) Non-Af 63, BUN/Creatinine Ratio 41.3 H, Glucose 191 H, Calcium 8.2 L, Total Bilirubin 1.60 H, AST 88 H, ALT 52, Alkaline Phosphatase 205 H, Total Protein 6.6, Albumin 1.6 L, Globulin 5.0 H, Albumin/Globulin Ratio 0.3 L Current Medications Acetaminophen (Tylenol) 650 mg PO Q6H PRN PRN PRN Reason: Fever, headache, pain(1-10) Last Admin: 06/30/19 03:10 Dose: 650 mg Documented by: Al Hydroxide/Mg Hydroxide (Mylanta Ii) 30 ml PO Q6H PRN PRN PRN Reason: Gastric Burning Bisacodyl (Dulcolax) 5 mg PO DAILY PRN PRN PRN Reason: Constipation Cefdinir (Omnicef [Equiv]) 300 mg PO Q12 [facility] Last Admin: 06/29/19 21:20 Dose: 300 mg Documented by: Docusate Sodium (Colace) 100 mg PO BID [facility] Last Admin: 06/29/19 21:19 Dose: 100 mg Documented by: Haloperidol Lactate (Haldol) 2 mg IV Q6H PRN PRN PRN Reason: AGITATION Last Admin: 06/26/19 05:52 Dose: 2 mg Documented by: Heparin Sodium (Porcine) (Heparin Na) 5,000 unit SC Q8 [facility] Last Admin: 06/30/19 05:30 Dose: 5,000 unit Documented by: Magnesium Hydroxide (Milk Of Magnesia) 30 ml PO DAILY PRN PRN PRN Reason: Constipation Metoprolol Tartrate (Lopressor (Beta Chaz)) 2.5 mg IV Q6H PRN PRN PRN Reason: tachycardia Last Admin: 06/26/19 16:59 Dose: 2.5 mg Documented by: Morphine Sulfate () 1 mg IV Q4H PRN PRN PRN Reason: Pain Score 6-10/10 Nutritional Formula (Lactose Free) (Ensure Enlive) 120 ml PO 4X/DAY [facility] Last Admin: 06/29/19 21:31 Dose: 120 ml Documented by: Ondansetron HCl (Zofran) 4 mg IV Q8H PRN PRN PRN Reason: NAUSEA/VOMITING Oxycodone HCl (Oxyir) 5 mg PO Q8H PRN PRN PRN Reason: Pain Score 4-5/10 Last Admin: 06/27/19 01:26 Dose: 5 mg Documented by: Propranolol HCl (Inderal) 20 mg PO BID [facility] Last Admin: 06/29/19 21:20 Dose: 20 mg Documented by: Sodium Chloride () 10 - 40 ml IV UD PRN PRN Reason: SALINE FLUSH Last Admin: 06/28/19 09:45 Dose: 10 ml Documented by: Medical Necessity - Tobacco Use Smoking Status: Never smoker Tobacco Use: Non-smoker Assessment/Plan All Active Problems Pleural effusion, right (Acute) RA (rheumatoid arthritis) (Acute) Hyperglycemia (Acute) cirrhosis, massive right pleural effusion with mediastinal shift, ascites, questionable cholangiocarcinoma - postoperative day #1 status post right Pleurx catheter placement The patient is much less dyspneic and is able to lay flat. chest x-ray demonstrates good position of the catheter and good expansion of the lung. Patient is able to cough up some sputum today. Fluid returned as low glucose and elevated white blood cell count-cytology was negative for malignant cells consistent with inflammation. Culture demonstrates few gram-positive cocci. Pleurx catheter will be placed to 20 cm suction and follow-up chest x-rays will be monitored. given output volume- approximately 1600cc/24 hours - will maintain on Pleur-evac drainage patient with advanced cirrhosis of unknown etiology. suspicion for cholangiocarcinoma at the bifurcation/[place] tumor was raised to [facility]. Other possibility is advanced primary sclerosing cholangitis. in any event, the patient has advanced cirrhosis by imaging and was felt to be not a candidate for TIPS or transplant. The patient been refusing further imaging or even vitals and examination. Repeat MRI/MRCP to assess liver and bile duct might help delineate a primary diagnosis but would certainly not change her cirrhosis and prognosis. Would consider palliative care consultation.
[2019-06-30] MEDS: Cefdinir 300 MG Capsule PO (10:40)
--- NOTE | 2019-06-30 12:18 | CASEMGMT ---
BASSEM called Evelyn at [facility] and she has not heard from insurance. She said she e-mailed insurance this morning and it still says pending. [facility] pending insurance approval. Sendy JACKSON
--- NOTE | 2019-06-30 13:55 | TREXTCAR_ITS ---
- Diet 06/23/19 17:44 Diet: Cardiac/Low Cholesterol Food consistency:: Regular Liquid Consistency:: Regular/Thin Is pt able to select menu?: No Diet Comments: 2 GM sodium diet, small portions - Routine Orders/Code Status Keep PO Greater than or Equal to (%): 94 Routine Lab Work: CBC - within 3 days, BMP - within 3 days - Wound(s) RIGHT CHEST Wound Type: Surgical Incision - Therapies Weight Bearing: Weight bearing as tolerated Extremity Affected:: Bilateral Lower Physical Therapy: Eval and Treat Occupational Therapy: Eval and Treat - Allergies/Procedures Done in Hospital Allergies/Adverse Reactions: Allergies Penicillins Allergy (Verified 06/23/19 13:17) Unknown Procedures: Thoracentesis - Type of Care/Length of Stay Estimated LOS: Convalescent Care Less Than 30 days Type of Care Needed: Skilled Rehab Potential: Good Prognosis: Good - Additional Orders/Day of Discharge Additional Orders: Continue to keep patient on the Pleurovac. Cap off Pleurx catheter when chest tube output is less than 500mls/day. Connect to a Pleurx bottle every other day and drain till not much comes out for palliative reasons. Follow-up with Dr. Lindo in 2-3 weeks. Call the general surgeon, Dr. Lindo for questions concerning the chest tube: [phone]. Patient needs to have palliative care consulted with eventual transition to Hospice. Day of Discharge: 06/30/19 - Dietary and Speech Recommendations Dietitian Recommendations/Changes: Recommend regular, low sodium diet. Will continue to provide Ensure Enlive 120 ml PO 4x/day at [facility]. - Follow Up Care Primary Care Physician: DAVID FRIEND [Other] Please follow up with your Primary Care Physician in: within 1-2 weeks Please Follow Up With: Santo Lindo MD When: in 2-3 weeks
--- NOTE | 2019-06-30 13:58 | PN.ID_ITS ---
Patient Problems: Active and Suspected Problems Pleural effusion, right (Acute) RA (rheumatoid arthritis) (Acute) pt has been told she has RA but, she is not on any medications Hyperglycemia (Acute) Subjective: Feeling ok, no fever, chest tube still in place. No n/v/d. - Physical Exam Vitals/I&O's: Vital Signs Temp Pulse Resp BP Pulse Ox 98 F 92 18 110/65 96 06/30/19 13:15 06/30/19 13:15 06/30/19 13:15 06/30/19 13:15 06/30/19 13:15 Oxygen Flow Rate (L/min) 1 Oxygen Delivery Method Room Air Weight: 56.4 kg Body Mass Index (BMI) 24.4 Orthostatic Vital Signs Start: 06/24/19 03:04 Freq: q24h Status: Active Protocol: Activity Type Activity Date Activity User E-Sign Co-Sign Detail Recorded Client Recorded Date Recorded By Document 06/24/19 03:00 MAB [id number] 06/24/19 03:05 MAB 06/24/19 03:00 Orthostatic Vitals Standing -Blood Pressure (90/60-120/80) 110/50 L -Extremity Use Left Arm -Pulse Rate (60-100) 87 Sitting -Blood Pressure (90/60-120/80) 115/48 L -Extremity Use Left Arm -Pulse Rate (60-100) 86 Lying -Blood Pressure (90/60-120/80) 114/49 L -Extremity Use Left Arm -Pulse Rate (60-100) 82 Intake and Output for Last 24 Hours 06/28/19 06/29/19 06/30/19 23:59 23:59 23:59 Intake Total 1030 / 1030 1840 / 1840 300 / 300 Output Total 3200 / 3200 2650 / 2650 360 / 360 Balance -2170 / -2170 -810 / -810 -60 / -60 General: Alert, Cooperative, No apparent distress Lungs: Clear to auscultation, Normal air movement Cardiovascular: Regular rate, Regular Rhythm Abdomen: Soft, Non Tender, Non-Distended Skin: No rashes Microbiology Past 72 Hours 06/24/19 09:34 Fluid - Pleural (Lung) Gram Stain - Final 06/24/19 09:34 Fluid - Pleural (Lung) Body Fluid Culture - Final Streptococcus constellatus pha 06/24/19 09:34 Fluid - Pleural (Lung) Anaerobic Culture - Final No anaerobic bacteria isolated. 06/23/19 20:55 Urine, Catheterized Urine Culture - Final Yeast, not Krysten albicans Presumptive Lactobacillus sp. Current Medications Acetaminophen (Tylenol) 650 mg PO Q6H PRN PRN PRN Reason: Fever, headache, pain(1-10) Last Admin: 06/30/19 03:10 Dose: 650 mg Documented by: Al Hydroxide/Mg Hydroxide (Mylanta Ii) 30 ml PO Q6H PRN PRN PRN Reason: Gastric Burning Bisacodyl (Dulcolax) 5 mg PO DAILY PRN PRN PRN Reason: Constipation Cefdinir (Omnicef [Equiv]) 300 mg PO Q12 COUNT INCLUDES THE [facility] Last Admin: 06/30/19 10:40 Dose: 300 mg Documented by: Docusate Sodium (Colace) 100 mg PO BID COUNT INCLUDES THE [facility] Last Admin: 06/30/19 10:40 Dose: Not Given Documented by: Haloperidol Lactate (Haldol) 2 mg IV Q6H PRN PRN PRN Reason: AGITATION Last Admin: 06/26/19 05:52 Dose: 2 mg Documented by: Heparin Sodium (Porcine) (Heparin Na) 5,000 unit SC Q8 COUNT INCLUDES THE [facility] Last Admin: 06/30/19 05:30 Dose: 5,000 unit Documented by: Magnesium Hydroxide (Milk Of Magnesia) 30 ml PO DAILY PRN PRN PRN Reason: Constipation Metoprolol Tartrate (Lopressor (Beta Chaz)) 2.5 mg IV Q6H PRN PRN PRN Reason: tachycardia Last Admin: 06/26/19 16:59 Dose: 2.5 mg Documented by: Morphine Sulfate () 1 mg IV Q4H PRN PRN PRN Reason: Pain Score 6-10/10 Nutritional Formula (Lactose Free) (Ensure Enlive) 120 ml PO 4X/DAY COUNT INCLUDES THE [facility] Last Admin: 06/30/19 10:40 Dose: 120 ml Documented by: Ondansetron HCl (Zofran) 4 mg IV Q8H PRN PRN PRN Reason: NAUSEA/VOMITING Oxycodone HCl (Oxyir) 5 mg PO Q8H PRN PRN PRN Reason: Pain Score 4-5/10 Last Admin: 06/27/19 01:26 Dose: 5 mg Documented by: Propranolol HCl (Inderal) 20 mg PO BID SMITHA Last Admin: 06/30/19 10:40 Dose: Not Given Documented by: Sodium Chloride () 10 - 40 ml IV UD PRN PRN Reason: SALINE FLUSH Last Admin: 06/28/19 09:45 Dose: 10 ml Documented by: Medical Necessity - Tobacco Use Smoking Status: Never smoker Tobacco Use: Non-smoker Route of nutrition/ use of supplements: [] Nutritional Intake: [] IV Site: [] Dennison Catheter: [] - Assessment/Plan Antibiotics: [] Assessment/Plan: [] Active and Suspected Problems Pleural effusion, right (Acute) RA (rheumatoid arthritis) (Acute) pt has been told she has RA but, she is not on any medications Hyperglycemia (Acute) Infected R pleural effusion - cx with strep. Fluid was exudative, cloudy. Chest tube remains in place. Plan on omnicef for 2 more weeks of therapy. Will follow as needed, please call with any questions.
--- NOTE | 2019-06-30 14:25 | CASEMGMT ---
Patient was approved to go to [place]. Notified physician and RN. Orders faxed to [facility]. Called [facility] and arranged for patient to get picked up at 6p via cot. SW notified RN who notified patient. SW notified patient's son via voice mail and Evelyn at [employer] [facility]. Convalescent completed on HENS. Plan: d/c to [employer] [facility] under skilled level of care on a convalescent stay. [facility] transported via cot. Sendy NUGENT MSW
--- NOTE | 2019-06-30 14:46 | PHA.DC.MR ---
Pharmacy Service has performed discharge medication reconciliation for this patient. Home Medications Albuterol Sulfate [Ventolin Hfa] 2 puff INHALATION Q6H PRN 06/23/19 Acetaminophen [Tylenol Tablet] 650 mg PO Q6H PRN PRN tab 06/30/19 Bisacodyl [Dulcolax] 5 mg PO DAILY PRN PRN tab 06/30/19 Cefdinir 300 mg PO BID #28 cap 06/30/19 Docusate Sodium [Colace] 100 mg PO BID PRN #60 cap 06/30/19 Ensure Enlive 120 ml PO 4X/DAY #0 liquid 06/30/19 Propranolol HCl 10 mg PO BID #60 tab 06/30/19 The patient's discharge medication list was reviewed for discrepancies and discrepancies were resolved.
--- NOTE | 2019-06-30 17:25 | NURSING ---
Report called to [facility] at and given to Pino Pham RN.
[2019-06-30] MEDS: oxyCODONE 5 MG Tablet PO (17:39)
--- NOTE | 2019-06-30 18:42 | NURSING ---
Reviewed and agreed on all charting with Ellis Mendez RN
--- NOTE | 2019-06-30 21:23 | NURSING ---
Pt telemetry removed, VS taken. Transport taking patient at this time.
--- NOTE | 2019-06-30 21:46 | NURSING ---
Attempted to called [facility] at this time to notify that pt is on her way. No answer. Will attempt to call again.
--- NOTE | 2019-06-30 22:15 | NURSING ---
Informed staff at [facility] that pt is on her way.
--- NOTE | 2019-07-02 09:34 | PCM.DC.SUM ---
Discharge Date and Diagnosis Date of Admission: 06/23/19 Date of Discharge: 06/30/19 - Primary Discharge Diagnosis Massive right streptococcal pleural effusion Acute hypoxic respiratory insufficiency Acute kidney injury - Secondary Discharge Diagnosis Chronic Problems Hyperlipidemia (Chronic) Cirrhosis of liver (Chronic) Asthma (Chronic) Splenomegaly (Chronic) Hypoprothrombinemia (Chronic) Cataract (Chronic) Hospital Course and Treatment Imaging Results: Clinical Impression(s) from Imaging Studies Abdomen/Pelvis CT 06/23/19 13:45 IMPRESSION: Large right pleural effusion with compressive atelectasis in the right lung with shift of the heart and mediastinal structures towards the left side of the midline. Findings suggestive of cirrhosis of the liver with nodular contour and decreased size. Splenomegaly. 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 Ascites. Electronically Signed: Dorian Rand, at 15:06 EST , Service support , Chest CT 06/23/19 14:47 IMPRESSION: Large right pleural effusion with compressive atelectasis of the right lung with shift of the heart and mediastinal structures towards the left side of the midline. Ascites with evidence of cirrhosis of the liver and splenomegaly with varices in the splenic hilum. Electronically Signed: Dorian Rand, at 15:09 EST , Service support , Chest X-Ray 06/24/19 10:09 IMPRESSION: Moderate right effusion and right lower lobe consolidation. Left lung is clear. Electronically Signed: Cal Dodson DO at 10:41 EST Tel , Service support , Chest X-Ray 06/25/19 04:45 IMPRESSION: Mild cardiomegaly with no evidence of central vascular congestion. A significant decrease in the right-sided pleural effusion noted in yesterday''s examination. 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 Patient had bowel movements and denied nausea and vomiting. Work-up in the emergency department showed elevated white cell count of 16.4, total bilirubin of 3.1, AST was 51, ALP was 32, ALP was 185. Ammonia was within normal limits. Patient's abdominal CT was suggestive of cirrhosis of the liver with significant splenomegaly and varices of the splenic hilum as well as ascites. CT scan of the chest showed a massive right pleural effusion with mediastinal shift. General surgery was consulted. 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 CA-19-9 was 314 as well as she had elevated liver enzymes and bilirubin. CA-19-9 was 222, alpha-fetoprotein was 2, CEA was 1.5. 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 Patient had undergone ERCP, attempts during her hospitalization from September 25 to November 01, 2017, to place a stent via ERCP. That failed to transverse the segment. PTHC was then performed with an external biliary drain in place. Pleural and ERCP brushings were negative for cytology. Repeat ERCP on October 08, 2018 had successful cannulization of the bile duct and the PTHC was removed. She was felt not to be a candidate for liver transplant. Her bilirubin during the hospital stay was between 9-11. Patient underwent Pleurx catheter placement, and was placed on the pleural-VAC. She continued to have lots of drainage. Fluid aspirate was suggestive of exudative etiology. Cytology was negative. Pleural fluid cultures grew Streptococcus. ID was consulted and recommended 2 weeks of cefdinir. During the first couple of days of the admission, patient was found to be confused, refused care including vitals and blood draw. Her son was called and said the patient is usually like that and has probable bipolar but has never seen a psychiatrist. The son also admitted to patient having dementia. MMSE done in this hospital stay was 23/30. General surgery recommended hospice/palliative care. And lives alone, discussed with the discharge team, recommendations were made to have patient discharged to [facility] facility for pleural fluid aspiration every couple of days as a palliative measure and possibly transfer to hospice. This was discussed with his son who agreed. Patient was in denial that she has cancer. She said they could not find anything wrong with her in [facility]. She said they thought it was gallstones. She was deemed to lack capacity to make medical decisions. Patient said she had paperwork which states her son is her healthcare power of estate attorney. Patient was discharged to [facility]. She would have pleural aspiration done the other day. She will follow-up with Dr. Lindo in 2 to 3 weeks. She was discharged with a pleural VAC intact. The [facility] staff were to continue with a pleural VAC until less than 500 mils of pleural fluid was obtained and then cap it. Subjective: On the day of discharge, patient was seen and examined. Denied any new complaints. Objective: Physical exam: General: Alert, Oriented x3, Cooperative, No apparent distress HEENT: Atraumatic, PERRLA, EOMI, Normocephalic Oral: Moist Mucosa Neck: Supple, No JVD, Negative Carotid Bruits Lungs: - - Markedly decreased breath sounds in the right upper, mid and lower lung chairez, crackles present Cardiovascular: Regular rate, Regular Rhythm, Normal S1, Normal S2, No murmurs Abdomen: - - Abdomen moderately distended, with positive fluid thrill. She had moderate tenderness of the right upper quadrant area in the area of the liver. Extremities: No clubbing, No cyanosis, No edema, Capillary Refill Less than 3 Seconds Skin: No rashes, No breakdown Musculoskeletal: No Tenderness to Palpation of Joints or Extremities Lymphatic: No Cervical, Supraclavicular, or Inguinal Adenopathy Neurological: Cranial nerves II-XII grossly intact Psych/Mental Status: Normal Affect, Appropriate, Alert and oriented to time, place, person, mood and affect - Physical Exam Vitals/I&O's: Vital Signs Temp Pulse Resp BP Pulse Ox 97.6 F L 94 22 H 117/71 97 06/30/19 21:13 06/30/19 21:13 06/30/19 21:13 06/30/19 21:13 06/30/19 21:13 Oxygen Flow Rate (L/min) 1 Oxygen Delivery Method Room Air Weight: 56.4 kg Body Mass Index (BMI) 24.4 Orthostatic Vital Signs Start: 06/24/19 03:04 Freq: q24h Status: Active Protocol: Activity Type Activity Date Activity User E-Sign Co-Sign Detail Recorded Client Recorded Date Recorded By Document 06/24/19 03:00 MAB [id number] 06/24/19 03:05 MAB 06/24/19 03:00 Orthostatic Vitals Standing -Blood Pressure (90/60-120/80) 110/50 L -Extremity Use Left Arm -Pulse Rate (60-100) 87 Sitting -Blood Pressure (90/60-120/80) 115/48 L -Extremity Use Left Arm -Pulse Rate (60-100) 86 Lying -Blood Pressure (90/60-120/80) 114/49 L -Extremity Use Left Arm -Pulse Rate (60-100) 82 Intake and Output for Last 24 Hours 06/30/19 07/01/19 07/02/19 23:59 23:59 23:59 Intake Total 300 / 300 Output Total 360 / 360 Balance -60 / -60 Microbiology Past 72 Hours 06/24/19 09:34 Fluid - Pleural (Lung) Gram Stain - Final 06/24/19 09:34 Fluid - Pleural (Lung) Body Fluid Culture - Final Streptococcus constellatus pha 06/24/19 09:34 Fluid - Pleural (Lung) Anaerobic Culture - Final No anaerobic bacteria isolated. Discharge Diet: No Restrictions Discharge Activity: Return to Normal Activity Home Medications: Medications to take at Discharge Albuterol Sulfate [Ventolin Hfa] 2 puff INHALATION Q6H PRN 06/23/19 Acetaminophen [Tylenol Tablet] 650 mg PO Q6H PRN PRN tab 06/30/19 Bisacodyl [Dulcolax] 5 mg PO DAILY PRN PRN tab 06/30/19 Cefdinir 300 mg PO BID #28 cap 06/30/19 Docusate Sodium [Colace] 100 mg PO BID PRN #60 cap 06/30/19 Ensure Enlive 120 ml PO 4X/DAY #0 liquid 06/30/19 Propranolol HCl 10 mg PO BID #60 tab 06/30/19 Following Prescrptions Were Given to Patient: Cefdinir 300 mg PO BID #28 cap Propranolol HCl 10 mg PO BID #60 tab Primary Care Physician: DAVID FRIEND [Other] Please follow up with your Primary Care Physician in: within 1-2 weeks Please Follow Up With: Santo Lindo MD When: in 2-3 weeks Disposition: [facility] facility Minutes spent on discharge:: 45 Patient Condition:: Stable Medical Necessity - Tobacco Use Smoking Status: Never smoker Tobacco Use: Non-smoker Meaningful Use Info Meaningful Use Diagnoses (Choose all that apply): None applicable Code Visit Inpatient E&M: 42732 Disch Hosp
[2019-07-03 13:00] LABS: Amylase Body Fluid 13 U/L (.)
== END 2019-06-30 21:20 | disposition skilled nursing facility (03) | DRG 187 ==
LOC: ED 16:02 → PCU 18:03
PROVIDERS: Internal Medicine Critical Care Medicine; Surgery; Admitting Provider Internal Medicine; Emergency Provider Emergency Medicine; Referring Provider Internal Medicine; Visit Provider Internal Medicine
PROC: 0W9930Z Drainage of Right Pleural Cavity with Drainage Device, Percutaneous Approach (ICD-10-PCS; CPT 32550; principal; 2019-06-24 09:00)
DX: J90 Pleural effusion, not elsewhere classified (principal); N17.9 Acute kidney failure, unspecified; R18.8 Other ascites; C22.1 Intrahepatic bile duct carcinoma; D68.2 Hereditary deficiency of other clotting factors; I95.9 Hypotension, unspecified; R09.02 Hypoxemia; R06.89 Other abnormalities of breathing; K74.60 Unspecified cirrhosis of liver; B95.5 Unspecified streptococcus as the cause of diseases classified elsewhere; E78.5 Hyperlipidemia, unspecified; J45.909 Unspecified asthma, uncomplicated; R16.1 Splenomegaly, not elsewhere classified
CPT/HCPCS: 36415; 71045; 71250; 74176; 80053; 81001; 82103; 82140; 82150; 82248; 82945; 83036; 83516; 83615; 83690; 83735; 83986; 84100; 84156; 84157; 84443; 84484; 85025; 85610; 85652; 86038; 86140; 86200; 86225; 86235; 86431; 86704; 86705; 86706; 86708; 86709; 86803; 87070; 87075; 87086; 87088; 87106; 87186; 87205; 87340; 87641; 88108; 88305; 88313; 89050; 93005; 93306; 97116; 97162; 97166; 97530; 97535; 97803; 99251; 99284; J2185; J7030; J7040; J7120; A4216; G0463; J0696; J2405